=== PATIENT | male | born 1940 | race Caucasian/White ===

== ENCOUNTER 2024-05-18 22:56 | Emergency (ER) | payer MEDICARE, SELFPAY ==
[2024-05-18 22:56] VITALS: BP 153/76; PULSE 66; RESP 20; TEMP 36.6; O2SAT 97; BMI 22.8
[2024-05-18 23:00] VITALS: BP 183/74; PULSE 58; RESP 16; O2SAT 98
[2024-05-18 23:01] VITALS: BP 165/95; PULSE 56; O2SAT 98
--- NOTE | 2024-05-18 23:09 | XR_ITS ---
PROCEDURE INFORMATION: Exam: XR Right Hip Exam date and time: 05/19/2024 12:02 AM Age: 84 years old Clinical indication: Injury or trauma; Fall; Other: Pain; Additional info: Fall, R hip pain TECHNIQUE: Imaging protocol: Radiologic exam of the right hip. Views: 2 or 3 views hip with pelvis when performed. COMPARISON: No relevant prior studies available. FINDINGS: Bones/joints: Mid right femoral neck fracture is superiorly displaced by 6 mm. Osseous demineralization is evident. Soft tissues: Unremarkable. IMPRESSION: Mid right femoral neck fracture is superiorly displaced by 6 mm.
--- NOTE | 2024-05-18 23:09 | CT_ITS ---
PROCEDURE INFORMATION: Exam: CT Cervical Spine Without Contrast Exam date and time: 05/19/2024 12:01 AM Age: 84 years old Clinical indication: Injury or trauma; Fall; Other: Pain; Additional info: Fall on eliquis TECHNIQUE: Imaging protocol: Computed tomography of the cervical spine without contrast. Radiation optimization: All CT scans at this facility use at least one of these dose optimization techniques: automated exposure control; mA and/or kV adjustment per patient size (includes targeted exams where dose is matched to clinical indication); or iterative reconstruction. COMPARISON: CT HEAD/BRAIN WO CON 05/18/2024 11:59 PM FINDINGS: Bones: No acute fracture. Normal alignment. Multilevel degenerative changes with multilevel disc osteophyte complexes resulting in varying degrees of neuroforaminal and central canal narrowing Lungs: Lung apices are normal. Soft tissues: Unremarkable. IMPRESSION: No acute findings.
--- NOTE | 2024-05-18 23:09 | XR_ITS ---
PROCEDURE INFORMATION: Exam: XR Left Hip Exam date and time: 05/19/2024 12:02 AM Age: 84 years old Clinical indication: Injury or trauma; Fall; Other: Pain; Additional info: Fall, HX L hip FX w/ orif TECHNIQUE: Imaging protocol: Radiologic exam of the left hip. Views: 2 or 3 views hip with pelvis when performed. COMPARISON: No relevant prior studies available. FINDINGS: Bones/joints: Mid right femoral neck fracture is superiorly displaced by 6 mm. Bipolar left hip arthroplasty. Osseous demineralization is evident. Moderate spinal degenerative changes. Soft tissues: Unremarkable. Vasculature: Atherosclerosis is evident. Incidental pelvic phlebolith formation. IMPRESSION: Mid right femoral neck fracture is superiorly displaced by 6 mm. Unremarkable left femoral arthroplasty.
--- NOTE | 2024-05-18 23:09 | CT_ITS ---
PROCEDURE INFORMATION: Exam: CT Head Without Contrast Exam date and time: 05/18/2024 11:59 PM Age: 84 years old Clinical indication: Injury or trauma; Fall; Other: Pain; Additional info: Fall on eliquis TECHNIQUE: Imaging protocol: Computed tomography of the head without contrast. Radiation optimization: All CT scans at this facility use at least one of these dose optimization techniques: automated exposure control; mA and/or kV adjustment per patient size (includes targeted exams where dose is matched to clinical indication); or iterative reconstruction. COMPARISON: CT HEAD/BRAIN WO CON 05/18/2024 11:59 PM FINDINGS: Brain: Atrophy and chronic small vessel ischemic changes. No hemorrhage. No mass effect or midline shift. 8.3 mm area of hypodensity in the left adam which could be due to remote ischemia. Cerebral ventricles: No ventriculomegaly. Paranasal sinuses: Opacification of the left maxillary sinus. Mastoid air cells: Visualized mastoid air cells are well aerated. Bones: Unremarkable. No acute fracture. Soft tissues: Unremarkable. IMPRESSION: Chronic changes in the brain but no acute intracranial abnormality.
--- NOTE | 2024-05-18 23:12 | ED_ITS ---
Discharge Plan Disposition Patient Disposition: Xfer Short-Term Hosp Condition: Fair Chief Complaint: PAIN Prescriptions Prescriptions: No Action methylprednisolone 4 MG tablet 4 mg PO DIRECTED Qty: 21 0RF Rx Instructions: Take as directed on package instructions fluticasone propionate 120 SPR/BOT bottle 2 spr NS DAILY Qty: 1 0RF Rx Instructions: each nostril daily amoxicillin-pot clavulanate 1 EACH tablet 1 tab PO Q12H 7 Days Qty: 14 0RF Referrals Follow up/Referrals: Provider,Referral, [Primary Care Provider] - See instructions Clinical Impressions Clinical Impression: Closed fracture of neck of right femur, Fall Stand Alone Forms Stand Alone Forms: Transfer Record - ED Print Language Print Language: Japanese Discharge ED Provider: Bettie Torres General Adult HPI General Chief complaint: PAIN Stated complaint: fall Time Seen by Provider: 05/18/24 23:02 Mode of Arrival: EMS Source of Information: Patient Limitations: No Limitations Description of Symptoms (Recalled from ER Triage Doc. by RN): Pt tripped and fell onto his buttocks on the concrete driveway. Right leg slightly rotated Pain in right hip Pedal pulses strong and equal History of Present Illness HPI narrative: 84-year-old male with history of previous IN on Eliquis as well as recent left hip fracture with ORIF at the beginning of January presents to the ER for concerns of fall. Patient and friend at bedside provide history reporting that patient got out of the car at [employer] and was waiting for the lights on the vehicle to go off when he lost his balance and fell landing primarily on his right side. He denies hitting his head or losing consciousness. Patient is complaining of right hip pain. He also states his left hip hurts slightly more than normal but states it has been aching with the recent weather changes. Patient was able to get himself up onto his hands and knees independently but did not ambulate on scene. He reports his pain is a 4 out of 10 in the right hip without radiation, no numbness, tingling, or weakness, he denies any other injuries or concerns at this time. When offered pain medications, he declined to them. ROS otherwise negative. Related Data Previous Rx's ?Medication ?Instructions ?Recorded amoxicillin 875 mg-potassium 1 tab PO Q12H 7 days #14 tabs 05/18/19 clavulanate 125 mg tablet fluticasone propionate 50 2 spr NS DAILY ##1 12/24/19 mcg/actuation nasal spray,suspension methylprednisolone 4 mg tablet 4 mg PO DIRECTED #21 tabs 05/18/19 Allergies Allergy/AdvReac Type Severity Reaction Status Date / Time No Known Allergies Allergy Verified 05/18/19 13:15 [facility] Disclaimer: The information contained in this section may have been updated after the patient was seen, as this information can be updated by other users. Social History Smoking Status: Never smoker alcohol intake: never current occupational status: other Travel in the last 8 weeks: None Have you lived/traveled outside [place] in past 30 days?: No Contact w/someone who lives/traveled outside US past 30 days?: No Exposure to someone with infectious disease in past 14 days?: No Do you have a fever (greater than 100.4 F or 38 C)?: No Have you tested positive for COVID-19: No Exposed to someone with COVID-19 in past 14 days?: No Do you have a sore throat?: No Do you have a cough?: No Do you have any weakness?: No Do you have any diarrhea?: No Are you experiencing any unusual bleeding?: No Do you have any muscle aches/pain?: No Do you have any abdominal pain?: No Are you experiencing loss of taste or smell?: No ROS Obtained: Yes Systems reviewed as appropriate & no additional complaints except as documented Per HPI Physical Exam General General appearance: alert and in no apparent distress Head Head exam: atraumatic and normocephalic Eye Eye exam: Present PERRL and EOMI ENT ENT exam: Present mucous membranes moist Neck Neck exam: Present normal inspection and full ROM; Absent tenderness or lymphadenopathy Chest Chest inspection: Present symmetric chest wall rise; Absent tenderness Respiratory Respiratory exam: Present normal lung sounds bilaterally; Absent respiratory distress, wheezes or stridor Cardiovascular Cardiovascular exam: Present regular rate and normal rhythm Abdominal Exam Abdominal exam: Present soft; Absent distention, tenderness, guarding or rebound Extremities Exam Extremities exam: Present full ROM (Range of motion intact with passive movements in the right hip, however they are painful especially with flexion. Patient has slight worsening of pain with internal rotation of the right hip, ROM in other extremities full), tenderness (Slight tenderness to palpation over the right greater trochanter of the hip), normal capillary refill and edema (Trace +1 pitting edema bilateral lower extremities); Absent joint swelling or calf tenderness Back Exam Back exam: Absent tenderness Neurological Exam Neurological exam: Present alert and oriented X3; Absent motor sensory deficit Psychiatric Psychiatric exam: Present normal affect and normal mood Skin Skin exam: Present warm and dry Medical Decision Making Medical Records Screening: Per USPSTF and CDC recommendations, given the prevalence of disease in our region, it is our hospital?s policy to screen for HIV and viral Hepatitis for all patients aged 18 and over and those with ongoing risk factors. [place] Inquiry Pt receiving controlled substance: No Vital Signs: 05/18/24 22:56 05/18/24 23:00 05/18/24 23:01 Temperature 98 F Temperature Source Oral Pulse Rate 58 L 56 L Pulse Rate [Right Brachial] 66 Respiratory Rate 20 16 Blood Pressure 183/74 H 165/95 H Blood Pressure [Right Arm] 153/76 H Blood Pressure Mean [Right Arm] 101 Blood Pressure Source [Right Arm] Automatic Cuff Blood Pressure Position [Right Arm] Supine 02 Sat by Pulse Oximetry 97 98 98 Oxygen Delivery Method Room Air Room Air 05/18/24 23:31 05/19/24 00:31 05/19/24 01:00 Temperature Temperature Source Pulse Rate 54 L 67 59 L Pulse Rate [Right Brachial] Respiratory Rate Blood Pressure 154/65 H 183/74 H 168/75 H Blood Pressure [Right Arm] Blood Pressure Mean [Right Arm] Blood Pressure Source [Right Arm] Blood Pressure Position [Right Arm] 02 Sat by Pulse Oximetry 98 97 98 Oxygen Delivery Method 05/19/24 01:30 05/19/24 02:00 05/19/24 02:30 Temperature Temperature Source Pulse Rate 62 63 65 Pulse Rate [Right Brachial] Respiratory Rate Blood Pressure 168/65 H 161/66 H 170/71 H Blood Pressure [Right Arm] Blood Pressure Mean [Right Arm] Blood Pressure Source [Right Arm] Blood Pressure Position [Right Arm] 02 Sat by Pulse Oximetry 97 97 96 Oxygen Delivery Method 05/19/24 03:00 05/19/24 03:30 Temperature Temperature Source Pulse Rate 62 63 Pulse Rate [Right Brachial] Respiratory Rate Blood Pressure 158/71 H 161/69 H Blood Pressure [Right Arm] Blood Pressure Mean [Right Arm] Blood Pressure Source [Right Arm] Blood Pressure Position [Right Arm] 02 Sat by Pulse Oximetry 96 96 Oxygen Delivery Method Orders (Tests/Meds): ORDERS Category Date Time Status CT cervical spine wo con Stat Cat Scan 05/18/24 23:[address] head/brain wo con Stat Cat Scan 05/18/24 23:09 Completed Hip XR left minimum 2 views [XR hip LT 2-3V w/pelvis] Exams 05/18/24 23:09 Completed Stat XR hip RT 2-3V w/pelvis Stat Exams 05/18/24 23:09 Completed HIV (1&2) Antibody Rapid Stat Lab 05/18/24 23:00 Ordered Hep C Ab with Reflex to RNA Stat Lab 05/18/24 23:00 Ordered Medical Decision Narrative: In summary, this 84-year-old male with comorbidities described in the HPI presents to the emergency department today with concerns of right hip pain after ground-level fall. On initial evaluation patient is hemodynamically stable, afebrile, most notable finding on exam is pain with manipulation of the right hip and tenderness over the right greater trochanter, neurovascularly intact distally, remainder of exam reassuring. Differential diagnosis includes but is not limited to fracture, dislocation, with patient stating the left hip is also slightly more painful, I also considered hardware malfunction. Since patient is on blood thinners, higher suspicion for intracranial bleed, with his age also have suspicion for potential cervical spine injury despite the low energy mechanism of injury. Based on these concerns, I ordered CT head and C-spine as well as x-ray imaging of the bilateral hips and pelvis. Patient refused pain medication for treatment. CT head personally interpreted does not demonstrate acute intracranial abnormality such as bleed or midline shift, see radiology read for final interpretation. CT cervical spine does not demonstrate acute traumatic injury. X-rays personally interpreted demonstrate right femoral neck fracture on my personal interpretation, see radiology read for final interpretation. Patient remains neurovascularly intact and pain is well-controlled. Unfortunately orthopedic services are not available at this institution this week. Therefore patient requires transfer for continued management. Initially [facility] was called for transfer, however then additional family presented to bedside and reported patient has previously received care at [facility] and requested transfer there since that is where he had his left hip repaired. I reached out to this institution and after discussing the case with Dr. Dinh with orthopedics as well as KUSH Prince with the hospitalist service, patient was graciously excepted for admission. Patient's accepting physician is Dr. Frankel. Patient is appropriate for BLS transfer. He was transferred in stable condition. Critical Care Critical Care Time Critical Care Time: No
[2024-05-18 23:31] VITALS: BP 154/65; PULSE 54; O2SAT 98
[2024-05-19] VITALS (9 sets, daily range): BP systolic 158–183; BP diastolic 65–78; PULSE 59–67; RESP 17; TEMP 36.7; O2SAT 95–98
--- NOTE | 2024-05-19 01:16 | PC.NURSE ---
called [facility] in regard for a transfer @ 01:14
--- NOTE | 2024-05-19 01:45 | PC.NURSE ---
Called [facility] transfer center at 01:45 in regard to pt transfer to [facility]
--- NOTE | 2024-05-19 02:04 | PC.NURSE ---
Dr. Torres at bedside
--- NOTE | 2024-05-19 04:02 | PC.NURSE ---
Report called to Kira MCGUIRE at [facility]
--- NOTE | 2024-05-19 04:26 | PC.NURSE ---
Pt aware of plans for transfer and admission Awaiting transport
== END 2024-05-19 05:00 | disposition short-term general hospital (02) ==
PROVIDERS: Emergency Provider Emergency Medicine
DX: S72.001A Fracture of unspecified part of neck of right femur, initial encounter for closed fracture (principal); M25.551 Pain in right hip; M25.552 Pain in left hip; R60.0 Localized edema; W01.0XXA Fall on same level from slipping, tripping and stumbling without subsequent striking against object, initial encounter; Y93.89 Activity, other specified; Y92.22 Religious institution as the place of occurrence of the external cause
CPT/HCPCS: 70450; 72125; 73502; 99284

== ENCOUNTER 2025-03-10 17:19 | Outpatient (CLI) | payer MEDICARE, SELFPAY ==
--- OUTSIDE RECORDS SUMMARY | 2025-01-11 14:02 | XMS_ITS | Encounter Summary ---
Author Organization [place] [address] Care Team Providers Care Postie Name Role Phone Gloria Whitmore MD Primary Care Provider [phone] Hui Slater MD Unavailable [phone] Encounter Details Date Type Department Care Team (Latest Contact Info) Description 01/11/2025 2:02 PM EDT Hospital Encounter [facility] [address] [place] [address] Iron deficiency anemia due to chronic blood loss; Iron malabsorption; Anticoagulated Discharge Disposition: Home or Self Care Social History Tobacco Use Types Packs/Day Years Used Date Smoking Tobacco: Former Cigarettes Q uit: 06/22/1976 Passive Smoke Exposure: Past Smokeless Tobacco: Never Alcohol Use Standard Drinks/Week Comments No 0 (1 standard drink = 0.6 oz pur e alcohol) [facility] Utilities Answer Date Recorded In the past 12 months has [employer] electric, gas, oil, or water company threatened to shut off services in your home? No 05/20/2024 Overall Financial Resource Strain (CARDIA) Answe r Date Recorded How hard is it for you to pa y for the very basics like food, housing, medical care, and heating? Not very hard 05/20/2024 PHQ-2 Answer Date Recorded PHQ-2 Total Score 0 06/30/2024 [facility] [place] [facility] Occupat ional [facility] - Occupational Stress Questionnaire Answer Date Recorded Do you feel stress - tense, restless, nervous, or anxious, or unable to sleep at night because your mind is troubled all the time - these days? Not at all 05/20/2024 Exercise Vital Sign Answer Date Recorde d On average, how many days pe r week do you engage in moderate to strenuous exercise (like a brisk walk)? 4 days 05/20/2024 On average, how many minutes do you engage in exercise at this level? 40 min 05/20/2024 Hunger Vital Sign Answer Date Recorded Within the past 12 months, y ou worried that your food would run out before you got the money to buy more. Never true 05/20/20 24 Within the past 12 months, t he food you bought just didn't last and you didn't have money to get more. Never true 05/20/2024 [facility] IP Transportation Answer D ate Recorded In the past 12 months, has l ack of reliable transportation kept you from medical appointments, meetings, work or from getting things needed for daily living? No 05/20/2024 Sexually Active Control Partners Comments Not Currently Female Sex and Gender Information Value Date Recorded Sex Assigned at Not on file Legal Sex Male 11:38 PM EDT Gender Identity Not on file Sexual Orientation Not on file documented as of this encounter Functional Status * Is the person deaf or does he/she have serious difficulty hearing? Answer Date of Assessment Author No 06/30/2024 1:22 PM Ebony Holt RMA * Is the person blind or does he/she have serious difficulty seeing even when wearing glasses? Answer Date of Assessment Author No 06/30/2024 1:22 PM Ebony Holt RMA * Does this person have serious difficulty walking or climbing stairs? Answer Date of Assessment Author No 06/30/2024 1:22 PM Ebony Holt RMA * Does this person have difficulty dressing or bathing? Answer Date of Assessment Author No 06/30/2024 1:22 PM Ebony Holt RMA * Because of a physical, mental or emotional condition, does this person have difficulty doing errands alone such as visiting a doctor's office or shopping? Answer Date of Assessment Author No 06/30/2024 1:22 PM Ebony Holt RMA documented as of this encounter Mental Status * Because of a physical, mental or emotional condition, does this person have serious difficulty concentrating, remembering or making decisions? Answer Entry Date Author No 06/30/2024 1:22 PM Ebony Holt RMA documented in this encounter Medications at Time of Discharge apixaban (ELIQUIS) 5 mg Oral TabletIndications :Old myocardial infarction Take 1 Tablet by mouth 2 times daily. 28 Tablet 08/17/2024 Cholecalciferol, Vitamin D3, 25 mcg (1,000 unit) Oral Capsule Take by mouth daily. ELIQUIS 2.5 mg Oral Tablet 12/28/2024 ezetimibe (ZETIA) 10 mg Oral Tablet Take 1 Tablet by mouth daily. 90 Tablet 1 12/24/2021 multivitamin capsule Take 1 Cap by mouth daily. rosuvastatin (CRESTOR) 20 mg Oral TabletIndications :Coronary artery disease involving [place] coronary artery of [place] heart without angina pectoris Take 1 Tablet by mouth nightly. 90 Tablet 3 06/30/2024 verapamiL (CALAN-SR) 120 mg Oral Tablet Sustained ReleaseIndication s:Tachycardia Take 1 Tablet by mouth 2 times daily. 180 Tablet 1 12/24/2021 cyanocobalamin, vitamin B-12, (VITAMIN B-12 ORAL) Take 1 Tab by mouth daily. 01/13/2025 documented as of this encounter Discharge Disposition Disposition Code Departure Means Destination Home or Self Care documented in this encounter Plan of Treatment Upcoming Encounters Date Type Department Care Team (Late st Contact Info) Description 03/23/2025 1:00 PM EDT Appointment [facility] [place] [address] [place] [address] 03/23/2025 1:30 PM EDT Appointment [place] [address] [place] [address] Sherrill Stroud, MATTHEW [address] [facility] [place] [id number] documented as of this encounter Goals Goal Patient Goal Type Associated Problems Recent Progress Patient-Stated? 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 Anticoagulated IRON+TIBC [place] 01/11/2025 2:12 PM EDT 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 Anticoagulated VITAMIN B12/ FOLIC ACID [place] 01/11/2025 2:12 PM EDT 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 Anticoagulated CBC WITH DIFF [place] 01/11/2025 2:12 PM EDT 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 Anticoagulated FERRITIN [place] 01/11/2025 2:12 PM EDT 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 Anticoagulated COMPREHENSIVE METABOLIC PANEL [place] 01/11/2025 2:12 PM EDT 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 Anticoagulated documented in this encounter Results * VITAMIN B12/ FOLIC ACID (01/11/2025 2:12 PM EDT) Vitamin B12 528 232 - 1,245 pg/mL 01/11/2025 9:53 PM EDT [facility] [employer] Folate >16.00 >=4.50 ng/mL 01/11/2025 9:53 PM EDT [facility] Blood VENOUS BLOOD / Unknown Venipuncture / Unknown 01/11/2025 2:12 PM EDT 01/11/2025 2:14 PM EDT Narrative [facility] - 01/11/2025 9:53 PM EDT Ingestion of mine doses of biotin (>5 mg/day) taken within 8 hours of drawing blood sample can interfere with this immunoassay test. us Sherrill Stroud PIANO INSTRUCTOR CHEMISTRY ORDERABLES Fin al Result [facility], [facility] [address] [facility] , [place] [address] * RETICULOCYTE PANEL DIAGNOSTIC (01/11/2025 2:12 PM EDT) Retic Cnt Auto 1.6 0.9 - 2.5 % 01/11/2025 6:55 PM EDT [facility], [facility] Retic # 70.9 40.0 - 110.0 x10(3)/mcL 01/11/2025 6:55 PM EDT [facility], [facility] Imm. Retic Fraction % 9.0 3.1 - 17.6 % 01/11/2025 6:55 PM EDT [facility], [facility] Retic Hgb 33.5 28.0 - 38.0 pg 01/11/2025 6:55 PM EDT [facility] Blood VENOUS BLOOD / Unknown Venipuncture / Unknown 01/11/2025 2:12 PM EDT 01/11/2025 2:14 PM EDT [facility] 01/11/2025 6:55 PM EDT Reticulocyte hemoglobin content (RET-He), a direct measurement of hemoglobinization of the developing reticulocyte, should be interpreted in conjunction with other indices. In various adult studies, values lower than 27-28pg (1,2) have demonstrated specificities for iron deficiency exceeding 90%. In a study of cancer patients, values exceeding 32pg (3) ruled out iron deficiency with a negative predictive value of 98.5%. RET-He has also demonstrated utility for monitoring response to iron replacement therapy (4). The immature reticulocyte fraction (IRF) assesses reticulocyte maturation by measuring the intensity of mRNA staining with the youngest reticulocytes having the highest content. (1)Rosendo Y., et al. 2017. Int J Hematol 106:116-125. (2)Rd J., et al. 2017. Nutrients 9:450. (3)Adrianna Schwab, et al. 2014. Am J Clin Pathol 142:506-512. (4)Camila Lerner., et al. 2010. Blood 116:2429-6251. Sherrill Stroud APRN HEMATOLOGY ORDERABLES Fi nal Result Performing Organization Address [facility] Co de Phone Number [facility], [facility] [address] [facility] , [place] [address] * (ABNORMAL) IRON+TIBC (01/11/2025 2:12 PM EDT) Iron 58 50 - 170 mcg/dL 01/11/2025 8:07 PM EDT [facility] Transferrin 237 200 - 360 mg/dL 01/11/2025 8:07 PM EDT [facility] Transferrin Saturation 17(L) 20 - 50 % 01/11/2025 8:07 PM EDT [facility] TIBC 332 250 - 400 mcg/dL 01/11/2025 8:07 PM EDT [facility] Blood VENOUS BLOOD / Unknown Venipuncture / Unknown 01/11/2025 2:12 PM EDT 01/11/2025 2:14 PM EDT Sherrill Stroud APRN CHEMISTRY ORDERABLES Fin al Result Performing Organization Address [facility] Co de Phone Number [facility], [employer] [address] [facility] , [place] [address] * FERRITIN (01/11/2025 2:12 PM EDT) Ferritin 96 30 - 400 ng/mL 01/11/2025 8:07 PM EDT [facility] Blood VENOUS BLOOD / Unknown Venipuncture / Unknown 01/11/2025 2:12 PM EDT 01/11/2025 2:14 PM EDT Narrative [facility] [employer] - 01/11/2025 8:07 PM EDT Ingestion of mine doses of biotin (>5 mg/day) taken within 8 hours of drawing blood sample can interfere with this immunoassay test. us Sherrill Stroud PIANO INSTRUCTOR CHEMISTRY ORDERABLES Fin al Result [employer] [address] [facility] , [place] [address] * (ABNORMAL) COMPREHENSIVE METABOLIC PANEL (01/11/2025 2:12 PM EDT) Sodium 138 136 - 145 mmol/L 01/11/2025 2:34 PM EDT [facility] Potassium 4.3 3.5 - 5.0 mmol/L 01/11/2025 2:34 PM EDT [facility] Chloride 103 98 - 107 mmol/L 01/11/2025 2:34 PM EDT [facility] Total CO2 24 22 - 29 mmol/L 01/11/2025 2:34 PM EDT [facility] Anion Gap 11 7 - 16 mmol/L 01/11/2025 2:34 PM EDT [facility] Calcium 9.9 8.8 - 10.4 mg/dL 01/11/2025 2:34 PM EDT [facility] Glucose Lvl 100(H) 70 - 99 mg/dL 01/11/2025 2:34 PM EDT [facility] BUN 21 8 - 23 mg/dL 01/11/2025 2:34 PM EDT [facility] Creatinine 0.96 0.67 - 1.30 mg/dL 01/11/2025 2:34 PM T [facility] Albumin 4.2 3.2 - 4.6 gm/dL 01/11/2025 2:34 PM EDT [facility] Total Protein 7.7 6.4 - 8.3 gm/dL 01/11/2025 2:34 PM T [facility] Bili Total 0.6 0.2 - 1.4 mg/dL 01/11/2025 2:34 PM T [facility] ALT 20 <=41 U/L 01/11/2025 2:34 PM EDT [facility] AST 26 <=40 U/L 01/11/2025 2:34 PM EDT [facility] Alk Phos 106 40 - 129 U/L 01/11/2025 2:34 PM EDT [facility] eGFR (CKD-EPIcr 2020) 77 >=60 mL/min/1.7 3 m2 01/11/2025 2:34 PM EDT [facility] Comment:Estimated GFR was ca lculated using the CKD-EPIcr (2020) equation refit without race. The equation is recommended by the National Kidney Foundation - [place] [employer] of Nephrology Task Force. Blood VENOUS BLOOD / Unknown Venipuncture / Unknown 01/11/2025 2:12 PM EDT 01/11/2025 2:14 PM EDT us Sherrill Stroud PIANO INSTRUCTOR CHEMISTRY ORDERABLES Fin al Result [facility] [address] [place] [address] * (ABNORMAL) CBC WITH DIFF (01/11/2025 2:12 PM EDT) WBC 5.6 3.7 - 10.3 x10(3)/mc L 01/11/2025 2:18 PM EDT [facility] RBC 4.46(L) 4.60 - 6.10 x10(6)/mc L 01/11/2025 2:18 PM EDT [facility] Hgb 13.6(L) 13.7 - 17.5 g/dL 01/11/2025 2:18 PM EDT [facility] Hct 42.0 40.0 - 51.0 % 01/11/2025 2:18 PM EDT [facility] MCV 94.2 80.0 - 100.0 fL 01/11/2025 2:18 PM EDT [facility] MCH 30.5 26.0 - 34.0 pg 01/11/2025 2:18 PM EDT [facility] MCHC 32.4 30.7 - 35.5 g/dL 01/11/2025 2:18 PM EDT [facility] RDW 12.9 <=14.9 % 01/11/2025 2:18 PM [facility] Platelet 149(L) 155 - 369 x10(3)/mc L 01/11/2025 2:18 PM [facility] MPV 10.1 8.8 - 12.5 fL 01/11/2025 2:18 PM [facility] Neut # Prelim 3.2 1.6 - 6.1 x10(3)/mc L 01/11/2025 2:18 PM [facility] Comment:Preliminary automate d absolute neutrophil count. Value may change if manual differential is indicated. Neut Percent 56.4 % 01/11/2025 2:18 PM [facility] Comment:Neutrophils equals s egs plus bands Imm Gran% 0.2 % 01/11/2025 2:18 PM [facility] Comment:Automated count of m etamyelocytes, myelocytes and promyelocytes. Lymph Percent 27.5 % 01/11/2025 2:18 PM [facility] [place] Percent 8.6 % 01/11/2025 2:18 PM [facility] Eos Percent 6.8 % 01/11/2025 2:18 PM [facility] Baso Percent 0.5 % 01/11/2025 2:18 PM [facility] Neut # 3.2 1.6 - 6.1 x10(3)/mc L 01/11/2025 2:18 PM [facility] Comment:Neutrophils equals s egs plus bands IMMGRAN# 0.0 0.0 - 0.1 x10(3)/mc L 01/11/2025 2:18 PM [facility] Comment:Automated count of m etamyelocytes, myelocytes and promyelocytes. An absolute IG <0.1 is reported as 0.0. Lymph # 1.5 1.2 - 3.9 x10(3)/mc L 01/11/2025 2:18 PM [facility] [place] # 0.5 0.3 - 0.9 x10(3)/mc L 01/11/2025 2:18 PM [facility] Eos# 0.4 0.0 - 0.5 x10(3)/mc L 01/11/2025 2:18 PM EDT [facility] Baso # 0.0 0.0 - 0.1 x10(3)/mc L 01/11/2025 2:18 PM EDT [facility] Blood VENOUS BLOOD / Unknown Venipuncture / Unknown 01/11/2025 2:12 PM EDT 01/11/2025 2:14 PM EDT us Sherrill Stroud PIANO INSTRUCTOR HEMATOLOGY ORDERABLES Fi nal Result [facility] [address] [place] [address] documented in this encounter Visit Diagnoses Diagnosis Iron deficiency anemia due to chronic blood loss Iron deficiency anemia secondary to blood loss (chronic) Iron malabsorption Other specified intestinal malabsorption Anticoagulated Encounter for long-term (current) use of anticoagulants documented in this encounter Additional Health Concerns Assessment Noted Time A fall risk assessment has been complete d for the patient 01/22/2024 4:21 PM EDT documented as of this encounter Care Teams Postie Relationship Specialty Start Date End Date Gloria Whitmore MD [address] [place], [place] [id number] PCP - General Family Medicine 08/07/17 Hui Slater MD [address] [facility] [place] [address] Medical Oncologist Internal Medicine-Hematology and Oncology 11/10/24 documented as of this encounter
--- OUTSIDE RECORDS SUMMARY | 2025-01-11 14:03 | XMS_ITS | Encounter Summary ---
Author Organization [place] [address] Care Team Providers Care Orthopaedic Surgeon Name Role Phone Gloria Whitmore MD Primary Care Provider [phone] Hui Slater MD Unavailable [phone] Reason for Visit * Reason Comments Follow-up Iron deficiency anem ia due to chronic blood loss Encounter Details Date Type Department Care Team (Latest Contact Info) Description 01/11/2025 2:03 PM EDT - 01/11/2025 11:59 PM EDT Hospital Encounter [facility] [address] [place] [address] Sherrill Stroud, MATTHEW [address] [place], [place] [id number] Iron deficiency anemia due to chronic blood loss (Primary Dx); Iron malabsorption; Anticoagulated; History of ischemic colitis; Anemia, chronic disease; Paroxysmal atrial fibrillation (HCC); History of prostate cancer Discharge Disposition: Home or Self Care Social History Tobacco Use Types Packs/Day Years Used Date Smoking Tobacco: Former Cigarettes Q uit: 06/22/1976 Passive Smoke Exposure: Past Smokeless Tobacco: Never Alcohol Use Standard Drinks/Week Comments No 0 (1 standard drink = 0.6 oz pur e alcohol) [facility] Utilities Answer Date Recorded In the past 12 months has [employer] gas, oil, or water company threatened to shut off services in your home? No 05/20/2024 Overall Financial Resource Strain (CARDIA) Answe r Date Recorded How hard is it for you to pa y for the very basics like food, housing, medical care, and heating? Not very hard 05/20/2024 PHQ-2 Answer Date Recorded PHQ-2 Total Score 0 06/30/2024 [facility] - Occupational Stress Questionnaire Answer Date Recorded [...] money to get more. Never true 05/20/2024 [facility] IP Transportation Answer D ate Recorded In [...] on file documented as of this encounter Last Filed Vital Signs Vital Sign Reading Time Taken Comments Blood Pressure 139/74 01/11/2025 2:11 PM EDT Pulse 54 01/11/2025 2:11 PM EDT Temperature 36.4 C (97.5 F) 01/11/2025 2:11 PM EDT Respiratory Rate 16 01/11/2025 2:11 PM EDT Oxygen Saturation 97% 01/11/2025 2:11 PM EDT Inhaled Oxygen Concentration - - Weight 78.9 kg (173 lb 14.4 oz) 01/11/2025 2:11 PM EDT Height 175.3 cm (5' 9 ) 01/11/2025 2:11 PM EDT Body Mass Index 25.68 01/11/2025 2:11 PM EDT documented in this encounter Functional Status * Is the [...] mg Oral TabletIndications :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 Patient: Radhames Monroy CSN: [id number] Date of : 1940 Age: 85 y.o. Date of Service: 01/11/2025 HEMATOLOGY/ONCOLOGY FOLLOW UP VISIT Primary Tassel Making Machine Operator & Oncologist: Hui Slater MD DIAGNOSIS & TREATMENT HISTORY: Oncology History Overview Note Anemia Chronic, persistent anemia dating to at least July 2021 with a progressive decline in hemoglobin values from 13.6 to 10.7 on January 22, 2024 in which he presented to the ER following a syncopal episode with x-ray imaging that revealed a left hip fracture. Underwent a left hemiarthroplasty on 01/23/24 with further decline in hemoglobin post-operatively to 6 resulting in packed red blood cell transfusion with improvement in hemoglobin by day of discharge to 8.9 Represented on 05/19/24 with right hip fracture resulting right hemiarthroplasty on 05/20/24 with hemoglobin on the day of discharge of 8.6 Received a single dose of IV iron (ferric gluconate) on 05/21/24 Continues on oral iron replacement No history exists. Cancer Staging No matching staging information was found for the patient. CURRENT TREATMENT: Venofer (1,000 mg) completed on 08/30/24 INTERVAL HISTORY: Radhames Monroy returns for ongoing evaluation of iron deficiency anemia requiring intermittent IV iron replacement Chief Complaint Patient presents with Follow-up Iron deficiency anemia due to chronic blood loss Feeling well today Energy level fluctuates, weakness improved from prior evaluations No reports of bleeding including hemoptysis, melena, hematochezia, hematuria or epistaxis. No recent falls No hospitalizations or emergency room encounters since his last evaluation No new or worsening musculoskeletal pain MEDICATIONS: Medications and allergies reviewed PHYSICAL EXAM: Vitals: 01/11/25 1411 BP: 139/74 Pulse: 54 Resp: 16 Temp: 97.5 ??F (36.4 ??C) SpO2: 97% ECO Pertinent information Physical Exam Vitals reviewed. Constitutional: General: He is not in acute distress. Comments: Chronically ill appearing but clinically improved from prior evaluations Eyes: General: No scleral icterus. Pulmonary: Effort: Pulmonary effort is normal. No respiratory distress. Skin: General: Skin is warm and dry. Coloration: Skin is not pale. Findings: No erythema or rash. Neurological: Mental Status: He is alert and oriented to person, place, and time. Psychiatric: Mood and Affect: Mood normal. MEDICAL DATA REVIEW: Laboratories, Images and Pathology results reviewed 08/04/24 Erythropoietin level 25 From 01/11/25 CBC: WBC normal (5.6, normal differential) with improved anemia (hemoglobin 13.6) with normal red blood cell indices; platelet count mildly reduced (149,000) CMP: Serum creatinine stable; no elevation in AST or ALT with normal total bilirubin and normal alkaline phosphatase (106 <-- 118) with normal total serum protein, albumin and calcium levels Ferritin 96 <-- 242 <-- 29 Iron 58 <-- 78 <-- 22 Transferrin saturation 17% <-- 27% <-- 6% TIBC 332 <-- 294 <-- 381 B12 normal 528 Folate level greater than 16 Reticulocyte panel normal ASSESSMENT & PLAN Radhames was seen today for follow-up. Diagnoses and all orders for this visit: Iron deficiency anemia due to chronic blood loss - CBC WITH DIFF; Future - COMPREHENSIVE METABOLIC PANEL; Future - FERRITIN; Future - IRON+TIBC; Future - VITAMIN B12/ FOLIC ACID; Future Iron malabsorption - CBC WITH DIFF; Future - COMPREHENSIVE METABOLIC PANEL; Future - FERRITIN; Future - IRON+TIBC; Future - VITAMIN B12/ FOLIC ACID; Future Anticoagulated - CBC WITH DIFF; Future - COMPREHENSIVE METABOLIC PANEL; Future - FERRITIN; Future - IRON+TIBC; Future - VITAMIN B12/ FOLIC ACID; Future History of ischemic colitis Anemia, chronic disease Paroxysmal atrial fibrillation (HCC) History of prostate cancer Anemia Multifactorial Likely component of iron deficiency secondary to chronic blood loss in the setting of recent left hip hemiarthroplasty secondary to a fall (December 2023) followed by right hip hemiarthroplasty secondary to a fall (April 2024) with continuation of anticoagulation with Eliquis (5 mg twice daily) aswell as aspirin (162 mg daily). Noted prior colonoscopy from 2010 with pathology consistent with ischemic colitis Likely a component of iron malabsorption as patient currently taking oral iron replacement 3 times daily with continued iron deficiency. Likely a component of anemia of chronic disease/inflammation in the setting of advanced age with recent surgeries as above Screening for monoclonal paraprotein negative from April 2024 No evidence of B12 or folate deficiency -CBC reviewed from today with continued improvement in hemoglobin (13.6) with now normal red blood cell indices -Iron studies reviewed from today; ferritin greater than 50 (but falling) with transferrin saturation of less than 20% and rising TIBC consistent with recurrent iron deficiency -Recommend proceeding with additional IV iron replacement (Venofer 600 mg) with repeat evaluations pending completion -B12 level from today normal (528); ok to continue oral B12 replacement - once per day on Mondays, Wednesdays and Fridays -Consider referral to gastroenterology if worsens Paroxysmal Atrial Fibrillation Managed by [facility] Was taking Eliquis (5 mg BID) as well as Verapamil -Previously discussed with cardiology (secondary to recent falls (December 2023 and April 2024) aswell as age and concurrent iron deficiency anemia, agreed to decrease Eliquis form 5 mg BID to 2.5 mg BID in an effort to reduce bleeding risk History of prostate cancer Status post radical prostatectomy in 2008 -PSA from 2019 less than 0.03 Advance Directives: Advance Directives and Living Will: Not Received Power of Seed Specialist: Not Received ADVANCE DIRECTIVE: Not Received Code Status: Needs Addressed - Prior Hx Available Dispo: Return for Pending iron replacement . Thank you for the opportunity to assist in the care of this patient, please feel free to contact meif I can be of any assistance. Sherrill Stroud APRN Hematology and Medical Oncology [facility] documented in this encounter Plan of Treatment Upcoming Encounters Date Type Department Care Team (Late st Contact Info) Description 03/23/2025 1:00 PM EDT Appointment [address] [place] [id number] 03/23/2025 1:30 PM EDT Appointment [facility] [address] [place] [place] [address] Sherrill Stroud, PARTS LISTER [address] [place], [place] [address] Scheduled Orders Name Type Priority Associated Diagnoses Orde r Schedule CBC WITH DIFF [facility] 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 Anticoagulated Expected: 03/23/2025, Expires: 02/17/2026 COMPREHENSIVE METABOLIC PANEL [facility] 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 Anticoagulated Expected: 03/23/2025, Expires: 02/17/2026 FERRITIN [facility] 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 Anticoagulated Expected: 03/23/2025, Expires: 02/17/2026 IRON+TIBC [facility] 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 Anticoagulated Expected: 03/23/2025, Expires: 02/17/2026 VITAMIN B12/ FOLIC ACID [facility] 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 Anticoagulated Expected: 03/23/2025, Expires: 02/17/2026 documented as of this encounter Goals Goal [...] Askew MD documented as of this encounter Visit Diagnoses Diagnosis Iron deficiency anemia due to chronic blood loss- Primary Iron deficiency anemia secondary to blood loss (chronic) Iron malabsorption Other specified intestinal malabsorption Anticoagulated Encounter for long-term (current) use of anticoagulants History of ischemic colitis Anemia, chronic disease Anemia of other chronic disease Paroxysmal atrial fibrillation (HCC) Atrial fibrillation History of prostate cancer Personal history of malignant neoplasm of prostate documented in this encounter Historical Medications * This list may reflect changes made after this encounter. Medication Sig Dispense Quantity Refills Last Filled Start D ate End Date ELIQUIS 2.5 mg Oral Tablet 12/28/2024 added in this encounter Additional Health Concerns Assessment Noted Time A fall risk assessment has been complete d for the patient 01/22/2024 4:21 PM EDT documented as of this encounter Care Teams Orthopaedic Surgeon Relationship Specialty Start Date End Date Gloria Whitmore MD [address] [place] [address] PCP - General Family Medicine 08/07/17 Hui Slater MD [address] [place] [id number] Medical Oncologist Internal Medicine-Hematology and Oncology 11/10/24 documented as of this encounter
--- OUTSIDE RECORDS SUMMARY | 2025-01-19 14:49 | XMS_ITS | Encounter Summary ---
Author Organization [place] [address] Care Team Providers Care Freezer Operator Name Role Phone Gloria Whitmore MD Primary Care Provider [phone] Hui Slater MD Unavailable [phone] Reason for Visit * Oncology Medication Prior Authorization (Routine) - Closed Specialty Diagnoses / Procedures Referred By Contac t Referred To Contact Diagnoses 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 Procedures [place] IRON SUCROSE INJECTION Sherrill Stroud APRN [address] [place] [address] Phone: tel: fax: Sherrill Stroud APRN [address] [place] [address] Phone: tel: fax: Referral ID Status Reason Start Date Expiration Date Visits Re quested Visits Authorized [id number] Closed 01/20/2025 01/20/2026 1 5 Encounter Details Date Type Department Care Team (Latest Contact Info) Description 01/19/2025 2:49 PM EDT - 01/19/2025 11:59 PM EDT Hospital Encounter [facility] [address] [place] [address] Iron deficiency anemia due to chronic blood loss (Primary Dx); Iron malabsorption Discharge Disposition: Home or Self Care Social History Tobacco Use Types Packs/Day Years Used Date Smoking Tobacco: Former Cigarettes Q uit: 06/22/1976 Passive Smoke Exposure: Past Smokeless Tobacco: Never Alcohol Use Standard Drinks/Week Comments No 0 (1 standard drink = 0.6 oz pur e alcohol) [facility] Utilities Answer Date Recorded In the past 12 months has th e electric, gas, oil, or water company threatened to shut off services in your home? No 05/20/2024 Overall Financial Resource Strain (CARDIA) Answe r Date Recorded How hard is it for you to pa y for the very basics like food, housing, medical care, and heating? Not very hard 05/20/2024 PHQ-2 Answer Date Recorded PHQ-2 Total Score 0 06/30/2024 [facility] - Occupational Stress [...] money to get more. Never true 05/20/2024 [facility] IP Transportation Answer D ate Recorded [...] Sign Reading Time Taken Comments Blood Pressure 145/54 01/19/2025 3:46 PM EDT Pulse 57 01/19/2025 3:46 PM EDT Temperature 36.3 C (97.3 F) 01/19/2025 3:46 PM EDT Respiratory Rate 18 01/19/2025 3:46 PM EDT Oxygen Saturation 98% 01/19/2025 3:46 PM EDT Inhaled Oxygen Concentration - - Weight 80 kg (176 lb 4.8 oz) 01/19/2025 3:03 PM EDT Height - - Body Mass Index 26.03 01/11/2025 2:11 PM EDT documented in this [...] unit) Oral Capsule Take by mouth daily. cyanocobalamin 1,000 mcg Oral TabletIndications :B12 deficiency Take 1 Tablet by mouth three times a week. 36 Tablet 1 01/14/2025 ELIQUIS 2.5 mg Oral Tablet 12/28/2024 ezetimibe (ZETIA) 10 mg Oral Tablet Take 1 Tablet by mouth daily. 90 Tablet 1 12/24/2021 multivitamin capsule Take 1 Cap by mouth daily. rosuvastatin (CRESTOR) 20 mg Oral TabletIndications :Coronary artery disease involving [place] coronary artery of [place] heart without angina pectoris Take 1 Tablet by mouth nightly. 90 Tablet 3 06/30/2024 verapamiL (CALAN-SR) 120 mg Oral Tablet Sustained ReleaseIndication s:Tachycardia Take 1 Tablet by mouth 2 times daily. 180 Tablet 1 12/24/2021 documented as of this encounter Discharge Disposition Disposition Code Departure Means Destination Home or Self Care documented in this encounter Miscellaneous Notes * Patient Instructions - Lucila Asher RN - 01/19/2025 3:00 PM EDT [facility] Discharge Instructions Thank you for entrusting [facility] with your care. We hope you are pleased with your outpatient care and services. Because we are most concerned with your health, we suggest you carefully read the following discharge instructions: Your Discharge Instructions: MEDICATION INSTRUCTIONS: Treatment received today: shyann Reviewed medications administered today and possible side effects Dizziness and sleepiness are possible side effects of pain medication. When taking pain medications, do not drink alcohol or drive. ACTIVITY INSTRUCTIONS: Rest today, increase activity as tolerated. DIET INSTRUCTIONS: as tolerated FOLLOW-UP CARE: Call your doctor for a follow-up appointment: Notify physician for complications such as: Fever over 101*, Rash, Hives, difficulty breathing, unrelieved nausea or pain, redness or swelling in one limb greater than the other, constipation, diarrhea, bleeding Please contact your physician if you have problems related to your procedure or if symptoms persistor worsen. If physician is unavailable, go to the Emergency Room. Additional Instructions: Our hours of operation are Friday - Friday 8:00 AM - 4:30 PM. [facility] [id number] [place] [address] documented in this encounter Plan of Treatment Upcoming Encounters Date Type Department Care Team (Late st Contact Info) Description 03/23/2025 1:00 PM EDT Appointment [address] [place] [address] 03/23/2025 1:30 PM EDT Appointment [address] [place] [address] Sherrill Stroud APRN [address] [place] [address] [place] [address] documented as of this encounter Goals Goal [...] (chronic) Iron malabsorption Other specified intestinal malabsorption documented in this encounter Administered Medications Inactive Administered Medications - up to 1 most recent administrations Medication Order MAR Action Action Date Dose Rate Site 0.9 % NaCl infusion Intravenous, at 30 mL/hr, CONTINUOUS, Starting on Fri01/19/25 at 1500, Until Fri01/20/25 at 1459, For liner inserter during infusion., Dx: 1. Iron deficiency anemia due to chronic blood loss 2. Iron malabsorptionIndications:Ir on deficiency anemia due to chronic blood loss,Iron malabsorption Rate/Dose Verify 01/19/2025 3:48 PM EDT 240 mL/hr iron sucrose (VENOFER) in sodium chloride 0.9% 120mL infusion 200 mg 200 mg, Intravenous, ONCE, 1 dose, On Fri01/19/25 at 1515, Administer over 30 Minutes, VESICANT , Dx: 1. Iron deficiency anemia due to chronic blood loss 2. Iron malabsorptionIndications:Ir on deficiency anemia due to chronic blood loss,Iron malabsorption IV Started 01/19/2025 3:16 PM EDT 200 mg 240 mL/hr sodium chloride 0.9% syringe Intravenous, PRN, Starting on Fri01/19/25 at 1458, Until Fri01/21/25 at 0412, Line Care, Flush after IV medication, Dx: 1. Iron deficiency anemia due to chronic blood loss 2. Iron malabsorptionIndications:Ir on deficiency anemia due to chronic blood loss,Iron malabsorption Given 01/19/2025 3:09 PM EDT 10 mL documented in this encounter Additional Health Concerns Assessment Noted Time A fall risk assessment has been complete d for the patient 01/22/2024 4:21 PM EDT documented as of this encounter Care Teams Freezer Operator Relationship Specialty Start Date End Date Gloria Whitmore MD [address] [place] [address] PCP - General Family Medicine 08/07/17 Hui Slater MD [address] [place] [address] [place], [place] [id number] Medical Oncologist Internal Medicine-Hematology and Oncology 11/10/24 documented as of this encounter
--- OUTSIDE RECORDS SUMMARY | 2025-01-26 12:54 | XMS_ITS | Encounter Summary ---
Author Organization [place] [address] Care Team Providers Care Flight Engineer Helicopter Name Role Phone Gloria Whitmore MD Primary Care Provider [phone] Hui Slater MD Unavailable [phone] Reason for Visit * Oncology Medication Prior Authorization (Routine) - Closed Specialty Diagnoses / Procedures Referred By Contac t Referred To Contact Diagnoses 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 Procedures [place] IRON SUCROSE INJECTION Sherrill Stroud APRN [address] [place] [address] Phone: tel: fax: Sherrill Stroud APRN [address] [place] [address] Phone: tel: fax: Referral ID Status Reason Start Date Expiration Date Visits Re quested Visits Authorized [id number] Closed 01/20/2025 01/20/2026 1 5 Encounter Details Date Type Department Care Team (Latest Contact Info) Description 01/26/2025 12:54 PM EDT - 01/26/2025 11:59 PM EDT Hospital Encounter [facility] [address] [place] [address] Iron deficiency anemia due to chronic blood loss (Primary Dx); Iron malabsorption Discharge Disposition: Home or Self Care Social History Tobacco Use Types Packs/Day Years Used Date Smoking Tobacco: Former Cigarettes Q uit: 06/22/1976 Passive Smoke Exposure: Past Smokeless Tobacco: Never Alcohol Use Standard Drinks/Week Comments No 0 (1 standard drink = 0.6 oz pur e alcohol) [facility] Utilities Answer Date Recorded In [...] Date Recorded PHQ-2 Total Score 0 06/30/2024 [facility] - [...] money to get more. Never true 05/20/2024 [facility] IP Transportation Answer D ate Recorded In [...] Sign Reading Time Taken Comments Blood Pressure 122/57 01/26/2025 2:12 PM EDT Pulse 51 01/26/2025 2:12 PM EDT Temperature 36.4 C (97.5 F) 01/26/2025 2:12 PM EDT Respiratory Rate 18 01/26/2025 2:12 PM EDT Oxygen Saturation 97% 01/26/2025 2:12 PM EDT Inhaled Oxygen Concentration - - Weight 80.7 kg (177 lb 14.4 oz) 01/26/2025 2:11 PM EDT Height - - Body Mass Index 26.27 01/11/2025 2:11 PM EDT documented in this [...] mg Oral TabletIndications :Coronary artery disease involving [place] coronary artery of [place] heart without angina pectoris Take 1 Tablet [...] Patient Instructions - Lucila Asher RN - 01/26/2025 1:15 PM EDT [facility] Discharge Instructions Thank you for entrusting the [facility] with your care. We hope you are [...] - Friday 8:00 AM - 4:30 PM. [facility] [address] [id number] [place] [address] [address] documented in this encounter Plan of Treatment Upcoming Encounters Date Type Department Care Team (Late st Contact Info) Description 03/23/2025 1:00 PM EDT Appointment [place] [address] [place] [address] 03/23/2025 1:30 PM EDT Appointment [facility] [address] [place] [address] Sherrill Stroud APRN [address] [facility] [place] [address] documented as of this encounter Goals [...] Intravenous, at 30 mL/hr, CONTINUOUS, Starting on Fri01/26/25 at 1330, Until Fri01/27/25 at 1329, For online communications specialist during infusion., Dx: 1. Iron deficiency anemia due to chronic blood loss 2. Iron malabsorptionIndications:Ir on deficiency anemia due to chronic blood loss,Iron malabsorption Rate/Dose Verify 01/26/2025 2:13 PM EDT 240 mL/hr iron sucrose (VENOFER) in sodium chloride 0.9% 120mL infusion 200 mg 200 mg, Intravenous, ONCE, 1 dose, On Fri01/26/25 at 1345, Administer over 30 Minutes, VESICANT , Dx: 1. Iron deficiency anemia due to chronic blood loss 2. Iron malabsorptionIndications:Ir on deficiency anemia due to chronic blood loss,Iron malabsorption IV Started 01/26/2025 1:41 PM EDT 200 mg 240 mL/hr sodium chloride 0.9% syringe Intravenous, PRN, Starting on Fri01/26/25 at 1323, Until Fri01/28/25 at 0408, Line Care, Flush after IV medication, Dx: 1. Iron deficiency anemia due to chronic blood loss 2. Iron malabsorptionIndications:Ir on deficiency anemia due to chronic blood loss,Iron malabsorption Given 01/26/2025 1:39 PM EDT 10 mL documented in this encounter Additional Health Concerns Assessment Noted Time A fall risk assessment has been complete d for the patient 01/22/2024 4:21 PM EDT documented as of this encounter Care Teams Flight Engineer Helicopter Relationship Specialty Start Date End Date Gloria Whitmore MD [address] [place] [address] PCP - General Family Medicine 08/07/17 Hui Slater MD [address] [place] [address] Medical Oncologist Internal Medicine-Hematology and Oncology 11/10/24 documented as of this encounter
--- OUTSIDE RECORDS SUMMARY | 2025-02-02 13:24 | XMS_ITS | Encounter Summary ---
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 [address] Iron deficiency anemia due to chronic blood loss (Primary Dx); Iron malabsorption Discharge Disposition: Home or Self Care Social History Tobacco Use Types Packs/Day Years Used Date Smoking Tobacco: Former Cigarettes Q uit: 06/22/1976 Passive Smoke Exposure: Past Smokeless Tobacco: Never Alcohol Use Standard Drinks/Week Comments No 0 (1 standard drink = 0.6 oz pur e alcohol) [facility] Utilities Answer Date Recorded In the [...] Date Recorded PHQ-2 Total Score 0 06/30/2024 [facility] of Occupat ional Health - Occupational Stress [...] money to get more. Never true 05/20/[address] [facility] IP Transportation Answer D ate Recorded [...] Sign Reading Time Taken Comments Blood Pressure 151/73 02/02/2025 3:03 PM EDT Pulse 54 02/02/2025 3:03 PM EDT Temperature 36.7 C (98 F) 02/02/2025 3:03 PM EDT Respiratory Rate 18 02/02/2025 3:03 PM EDT Oxygen Saturation 100% 02/02/2025 3:03 PM EDT Inhaled Oxygen Concentration - - Weight 80.5 kg (177 lb 8 oz) 02/02/2025 2:19 PM EDT Height - - Body Mass Index 26.21 01/11/2025 2:11 PM EDT documented in this [...] mg Oral TabletIndications :Coronary artery disease involving [place] coronary artery of [place] heart without angina pectoris Take 1 Tablet by mouth nightly. 90 Tablet 3 06/30/2024 verapamiL (CALAN-SR) 120 mg Oral Tablet Sustained ReleaseIndication s:Tachycardia Take 1 Tablet by mouth 2 times daily. 180 Tablet 1 12/24/2021 documented as of this encounter Discharge Disposition Disposition Code Departure Means Destination Home or Self Care documented in this encounter Miscellaneous Notes * Patient Instructions - Deloris Samuels RN - 02/02/2025 1:30 PM EDT [facility] Discharge Instructions Thank you for entrusting the [facility] with your care. We hope you are pleased with your outpatient care and services. Because we are most concerned with your health, we suggest you carefully read the following discharge instructions: Your Discharge Instructions: MEDICATION INSTRUCTIONS: Treatment received today: Dwight Reviewed medications administered today and possible side [...] - Friday 8:00 AM - 4:30 PM. [facility] [id number], [place] [id number] documented in this encounter Plan of Treatment Upcoming Encounters Date Type Department Care Team (Late st Contact Info) Description 03/23/2025 1:00 PM EDT Appointment [place] [address] [place] [address] 03/23/2025 1:30 PM EDT Appointment [facility] [address] [place] [id number] Sherrill Stroud, PRECIPITATOR SUPERVISOR [address] [facility] [facility] [address] [place] [id number] documented as of this encounter Goals [...] Intravenous, at 30 mL/hr, CONTINUOUS, Starting on Fri02/02/25 at 1415, Until Emmie 02/03/25 at 1414, For line construction engineer during infusion., Dx: 1. Iron deficiency anemia due to chronic blood loss 2. Iron malabsorptionIndications:Ir on deficiency anemia due to chronic blood loss,Iron malabsorption Rate/Dose Verify 02/02/2025 3:10 PM EDT 240 mL/hr iron sucrose (VENOFER) in sodium chloride 0.9% 120mL infusion 200 mg 200 mg, Intravenous, ONCE, 1 dose, On Fri02/02/25 at 1430, Administer over 30 Minutes, VESICANT , Dx: 1. Iron deficiency anemia due to chronic blood loss 2. Iron malabsorptionIndications:Ir on deficiency anemia due to chronic blood loss,Iron malabsorption IV Started 02/02/2025 2:37 PM EDT 200 mg 240 mL/hr sodium chloride 0.9% syringe Intravenous, PRN, Starting on Fri02/02/25 at 1414, Until Fri02/04/25 at 0405, Line Care, Flush after IV medication, Dx: 1. Iron deficiency anemia due to chronic blood loss 2. Iron malabsorptionIndications:Ir on deficiency anemia due to chronic blood loss,Iron malabsorption Given 02/02/2025 2:26 PM EDT 10 mL documented in this encounter Additional Health Concerns Assessment Noted Time A fall risk assessment has been complete d for the patient 01/22/2024 4:21 PM EDT documented as of this encounter Care Teams Doctor Of Podiatry Relationship Specialty Start Date End Date Gloria Whitmore MD [address] [place] [address] PCP - General Family Medicine 08/07/17 Hui Slater MD [address] [place] [address] Medical Oncologist Internal Medicine-Hematology and Oncology 11/10/24 documented as of this encounter
--- OUTSIDE RECORDS SUMMARY | 2025-02-23 13:45 | XMS_ITS | Encounter Summary ---
Author Organization [place] [address] Care Team Providers Care Gun Fertilizer Name Role Phone Gloria Whitmore MD Primary Care Provider [phone] Hui Slater MD Unavailable [phone] Reason for Referral * Home Health Care (Routine) - Pending Review Specialty Diagnoses / Procedures Referred By Contac t Referred To Contact Home Health Diagnoses Coronary artery disease involving [place] coronary artery of [place] heart without angina pectoris Memory disturbance Impaired mobility and ADLs Debility Gloria Whitmore MD [address] [place] [address] Phone: tel: fax: [facility], [facility] [address] [place] [address] Phone: tel: fax: Referral ID Status Reason Start Date Expiration Date Visits Requested Visits Authorized [id number] Pending Review Continuity of Care 02/23/2025 02/23/2026 1 1 Comments [facility] Physician Certificate of Medical Necessity for Home Care Services Face to Face Encounter Home Health: Need for Home Health Services I certify that based on my findings: Home health services are medically necessary for this patient. This patient is homebound based on the following information:decreased strength, decreased endurance, requires frequent rest periods, unsteady gait, weakness, needs assistance for ambulation, and dependent on assistive device for ambulation. My clinical findings support the need for the above services because:strength and endurance training, home safety assessment, frequent falls, frequent/multiple hospitalizations, and assistance with community resources. Recommended Nursing Services: Skilled Assessment Therapies to Evaluate and Treat: Physical Therapy and Occupational Therapy Agency Choice/Phone Number: Height: 5' 9 (175.3 cm) (02/23/25 7921) Weight: 179 lb (81.2 kg) (02/23/25 0651) Encounter Date and Reason for Encounter I certify that I, or a qualified hospitalist practitioner working with me, had a face to face encounter with this patient on the date indicated below due to the medical condition also listed below, which related to the primary reason the patient requires home health services. Encounter Date: 02/23/2025 Need for Home Health Services I certify that based on my findings: A. Home health services are medically necessary for this patient due to the following medical conditions: Patient Active Problem List: Dyslipidemia CAD (coronary artery disease) / History of MT 2010 / S/P coronary artery stent placement GERD (gastroesophageal reflux disease) PVC (premature ventricular contraction) Colon polyp LFT elevation Metabolic syndrome Old myocardial infarction History of prostate cancer Syncope Paroxysmal ventricular tachycardia (HCC) Bradycardia Paroxysmal atrial fibrillation (HCC) Closed fracture of left hip, initial encounter ([facility]) Closed left hip fracture, initial encounter ([facility]) ABLA (acute blood loss anemia) Closed fracture of right hip, initial encounter (HCC) Primary hypertension S/P coronary artery stent placement Age-related osteoporosis with current pathological fracture Microcytic anemia 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 Impaired mobility and ADLs Debility Memory disturbance I certify that this patient is under my care, or has been referred to another physician having professional knowledge of the patient's condition. Services ordered above are needed to treat condition for which patient was hospitalized and/or seen in the office. The composed above information is based on my clinical judgment relating to this patient's medical condition. 02/23/2025 The information requested on this form is mandated by the Affordable Care Act, effective May. Home Care services cannot be provided to the patient without completion of this document. The Plan of Care will be forwarded to the patient's primary physician for approval after services have commenced. A hospitalist or covering physician may certify home care even if they will not be caring for the patient after discharge. * Consultation (Routine) - Authorization Not Needed Specialty Diagnoses / Procedures Referred By Contac t Referred To Contact Neurology Diagnoses Memory disturbance Procedures NM OFFICE/OUTPATIENT NEW MODERATE MDM 45 MINUTES Gloria Whitmore MD [address] [place] [address] Phone: tel: fax: Russell Henning MD [facility] [address] [place] [address] Phone: tel: fax: Referral ID Status Reason Start Date Expiration Date Visits Requested Visits Authorized [id number] Authorization Not Needed 02/23/2025 02/23/2026 99 99 * Consultation (Routine) - Authorization Not Needed Specialty Diagnoses / Procedures Referred By Contac t Referred To Contact Diagnoses Psoriasis Skin lesion Procedures NM OFFICE/OUTPATIENT NEW MODERATE MDM 45 MINUTES Gloria Whitmore MD [address] [place] [address] Phone: tel: fax: Uday Garza MD [address] [facility] [place] [address] Phone: tel: fax: Referral ID Status Reason Start Date Expiration Date Visits Requested Visits Authorized [id number] Authorization Not Needed Specialty Services Required 02/23/2026 99 99 Question Answer Provider Options First Available Are you an oncology provider? No Is this for a skin lesion or rash referral? Skin Lesion Referral Is there a photo? No Is melanoma suspected? No Has a biopsy been done? No If this is an URGENT referral and the patient needs to be seen within the next 4 weeks, please use the On-Call finder and send a message to the provider manager documentation. Your message will be answered within 24 hours business hours. Please include a photo. Non Urgent Reason for Visit * Reason Comments Annual Exam Medication Refill Other talk about home heal th Encounter Details Date Type Department Care Team (Late st Contact Info) Description 02/23/2025 1:45 PM EDT Office Visit [facility] [address] [id number] Gloria Whitmore MD [address] [facility] [place] [address] Annual physical exam (Primary Dx); Flu vaccine need; Psoriasis; Skin lesion; Coronary artery disease involving [place] coronary artery of [place] heart without angina pectoris; Memory disturbance; Impaired mobility and ADLs; Debility; Iron deficiency anemia, unspecified iron deficiency anemia type; Vitamin D deficiency Social History Tobacco Use Types Packs/Day Years Used Date Smoking Tobacco: Former Cigarettes Q uit: 06/22/1976 Passive Smoke Exposure: Past Smokeless Tobacco: Never Alcohol Use Standard Drinks/Week Comments No 0 (1 standard drink = 0.6 oz pur e alcohol) [facility] Utilities Answer Date Recorded In the past 12 months has e electric, gas, oil, or water company threatened to shut off services in your home? No 05/20/2024 Overall Financial Resource Strain (CARDIA) Answe r Date Recorded How hard is it for you to pa y for the very basics like food, housing, medical care, and heating? Not very hard 05/20/2024 PHQ-2 Answer Date Recorded PHQ-2 Total Score 0 06/30/2024 [place] [facility] - Occupational Stress [...] money to get more. Never true 05/20/2024 [facility] IP Transportation Answer D ate Recorded In [...] Sign Reading Time Taken Comments Blood Pressure 124/82 02/23/2025 1:56 PM EDT Pulse - - Temperature 36.6 C (97.9 F) 02/23/2025 1:56 PM EDT Respiratory Rate - - Oxygen Saturation - - Inhaled Oxygen Concentration - - Weight 81.2 kg (179 lb) 02/23/2025 1:56 PM EDT Height 175.3 cm (5' 9 ) 02/23/2025 1:56 PM EDT Body Mass Index 26.43 02/23/2025 1:56 PM EDT documented in this encounter Functional [...] Entry Date Author No 06/30/2024 1:22 PM ROSETTA Ebony Mcallister ALLI Benavidez documented in this encounter Ordered Prescriptions Prescription Sig Dispense Quantity Refills Last Filled Start Date End Date ciclopirox (LOPROX) 0.77 % Top CreamIndications:P soriasis Apply topically 2 times daily. 60 g 3 02/23/2025 fluconazole (DIFLUCAN) 100 mg Oral TabletIndications: Psoriasis Take 1 Tablet by mouth daily for 14 days. 14 Tablet 02/23/2025 documented in this encounter Progress Notes * Gloria Whitmore MD - 02/23/2025 1:45 PM EDT Assessment & Plan 1. Medicare checkup: - His weight has remained stable, with a slight increase from 177.5 to 179 pounds. - Blood pressure is well-controlled at 124/82 mmHg. - He is advised to continue participating in the [employer] program. - A referral for home health care will be made to assist with bathing and other daily activities. Blood work will be ordered today, and the results will be shared with Sherrill Stroud to determine if additional tests are necessary. 2. Seborrheic keratosis: - The dark appearance of the lesion on his hand is concerning. - A referral to a barrel loader and cleaner will be made for further evaluation and potential biopsy or cryotherapy. 3. Superficial fungal infection: - The infection appears to be a result of sensitive skin, possibly due to psoriasis, that has become infected with common skin luke such as staph, strep, or yeast. - An antifungal medication will be prescribed, along with Loprox cream to prevent his immune systemfrom attacking the skin. 4. Low iron counts: - He had low iron counts and saw Sherrill Stroud at the hospital in the spring. He had 5 sessions of treatment and returned 3 months later for more blood work, after which 3 additional sessions were recommended. He recently completed these sessions. - He is scheduled to see Sherrill Stroud again at the end of this month. Dx/Orders: Diagnoses and all orders for this visit: Annual physical exam - CBC WITH DIFF; Future - COMPREHENSIVE METABOLIC PANEL; Future - HEMOGLOBIN A1C; Future - LIPID SCREEN; Future - TSH REFLEX TO FT4; Future - VITAMIN B12/ FOLIC ACID; Future - FERRITIN; Future - IRON+TIBC; Future Flu vaccine need - FLUZONE HIGH DOSE - CBC WITH DIFF; Future - COMPREHENSIVE METABOLIC PANEL; Future - HEMOGLOBIN A1C; Future - LIPID SCREEN; Future - TSH REFLEX TO FT4; Future - VITAMIN B12/ FOLIC ACID; Future - FERRITIN; Future - IRON+TIBC; Future Psoriasis - fluconazole (DIFLUCAN) 100 mg Oral Tablet; Take 1 Tablet by mouth daily for 14 days. Dispense: 14Tablet; Refill: 0 - ciclopirox (LOPROX) 0.77 % Top Cream; Apply topically 2 times daily. Dispense: 60 g; Refill: 3 - AMB REFERRAL TO DERMATOLOGY - CBC WITH DIFF; Future - COMPREHENSIVE METABOLIC PANEL; Future - HEMOGLOBIN A1C; Future - LIPID SCREEN; Future - TSH REFLEX TO FT4; Future - VITAMIN B12/ FOLIC ACID; Future - FERRITIN; Future - IRON+TIBC; Future Skin lesion - AMB REFERRAL TO DERMATOLOGY - CBC WITH DIFF; Future - COMPREHENSIVE METABOLIC PANEL; Future - HEMOGLOBIN A1C; Future - LIPID SCREEN; Future - TSH REFLEX TO FT4; Future - VITAMIN B12/ FOLIC ACID; Future - FERRITIN; Future - IRON+TIBC; Future Coronary artery disease involving [place] coronary artery of [place] heart without angina pectoris - CBC WITH DIFF; Future - COMPREHENSIVE METABOLIC PANEL; Future - HEMOGLOBIN A1C; Future - LIPID SCREEN; Future - TSH REFLEX TO FT4; Future - VITAMIN B12/ FOLIC ACID; Future - FERRITIN; Future - IRON+TIBC; Future - AMB REFERRAL TO HOME HEALTH Memory disturbance - CBC WITH DIFF; Future - COMPREHENSIVE METABOLIC PANEL; Future - HEMOGLOBIN A1C; Future - LIPID SCREEN; Future - TSH REFLEX TO FT4; Future - VITAMIN B12/ FOLIC ACID; Future - FERRITIN; Future - IRON+TIBC; Future - AMB REFERRAL TO NEUROLOGY - AMB REFERRAL TO HOME HEALTH Impaired mobility and ADLs - CBC WITH DIFF; Future - COMPREHENSIVE METABOLIC PANEL; Future - HEMOGLOBIN A1C; Future - LIPID SCREEN; Future - TSH REFLEX TO FT4; Future - VITAMIN B12/ FOLIC ACID; Future - FERRITIN; Future - IRON+TIBC; Future - AMB REFERRAL TO HOME HEALTH Debility - CBC WITH DIFF; Future - COMPREHENSIVE METABOLIC PANEL; Future - HEMOGLOBIN A1C; Future - LIPID SCREEN; Future - TSH REFLEX TO FT4; Future - VITAMIN B12/ FOLIC ACID; Future - FERRITIN; Future - IRON+TIBC; Future - AMB REFERRAL TO HOME HEALTH Iron deficiency anemia, unspecified iron deficiency anemia type - CBC WITH DIFF; Future - COMPREHENSIVE METABOLIC PANEL; Future - HEMOGLOBIN A1C; Future - LIPID SCREEN; Future - TSH REFLEX TO FT4; Future - VITAMIN B12/ FOLIC ACID; Future - FERRITIN; Future - IRON+TIBC; Future Vitamin D deficiency - VITAMIN D 25 HYDROXY; Future No follow-ups on file. Subjective Radhames Monroy is a 85 y.o. male Chief Complaint Patient presents with Annual Exam Medication Refill Other talk about home health Medicare Wellness Assessment: Subsequent Annual Medicare Wellness Assessment. Risk Assessments: Fall Risk Assessment Has the patient had any fall with injury in the past year?: (!) Yes Has the patient had 2 or more falls in the past year?: No Is the patient able to sit without assistance?: Yes Is the patient able to get up without assistance?: Yes Does the patient have a difficult time ambulating when first getting up?: No Does the patient have rugs or runners in the home?: No Does the patient have grab bars in the bathroom?: Yes Does the patient have stairs inside or outside of the home?: No (In Office Assessment Only): Is the patient able to ambulate without assistance/device and with a gait steady?: (!) No (In Office Assessment Only): TUG test: Time patient going from sitting to standing, walk 10 feet, return to chair and sit. Record time. : Less or equal to 12 seconds Functional Status Assessment Functional Level: self care Functional Mobility Assessment: independent w/o assist device Assessment of transportation needs: still drives most of the time Functional Activities of Daily Living Limitations: (!) ambulation Bladder: Do you have issues with your bladder, such as urgency or leaking urine?: No issues Does the patient report issues or concerns regarding hearing?: No Activities of Daily Living Assistive Device Assessment Assistive Devices: None Home O2 Device: Room Air Osteoporosis Screening Assessment Has the patient had a DEXA (Bone Density) scan in the past 2 years?: Not applicable (male) No results found for this or any previous visit. Abnormal Pains Assessment Excluding what you would consider normal aches and pains for your age and medical condition, do youhave any unusual or worrisome pains?: No Opiate Screening Are you currently on opiate or narcotic medications?: No PHQ Depression Screening Results Little interest or pleasure in doing things: 0 Feeling down, depressed, or hopeless: 0 PHQ-2 Total Score: 0 PHQ-9 Total Score: 0 Advanced Directive Evaluation Does the patient have an Advance Directive?: (!) Yes, but not on file (Please bring your Advance Directive to your next office visit) Advance Care Planning Guide Given?: (!) No (For Dementia Screening below can use either AD-8 or Mini Cog. Doesn't require both.) AD-8 Dementia Screening tool results Problems with judgement: 0 Less interest in hobbies/activities: 0 Repeats the same things over and over: 0 Trouble learning how to use a tool, appliance or gadget: 0 Forgets correct month or year: 0 Trouble handling complicated financial affairs: 0 Trouble remembering appointments: 0 Daily problems with thinking and/or memory: 0 Total AD8 score:: 0 Mini Cog Dementia Screening tool results Number of words immediately repeated back correctly.: 3 Number of Words Recalled: 3 Dementia: Negative Welcome to Medicare Vision Screening Eye Exam : Not applicable/required for Subsequent AWV, only required for Welcome to Medicare Visit Patient Instructions AWV findings and Plan of Care: Recommendations as part of the Personal Plan of Care based on risk screening assessments are: Fall Risk Assessment: Fall Risk Assessment: negative - re-assess in 1 year Functional Status/Social Determinates of Health: stable, no issues, re-assess in 1 year Depression Screening: negative - re-assess in 1 year Dementia Screening: negative - recommend re-assess in 1 year Vaccinations: patient declined all vaccines today Exercise/Activity: recommended continuing current Recommended follow up annually for Medicare Annual Wellness Visit. Good preventative health care is important in reducing morbidity and mortality. I recommend exercise regularly as tolerated focusing on strength and balance. I recommend a balanced diet focusing on fruits, veggies, and lean meats. I recommend avoiding having rugs, runners, or other loose trip hazards in the home as these increase fall risk. I recommend installing grab bars in the bathrooms close to toilets, in tubs, and in showers as these are common areas for falls when transitioning from wet surfaces to dry surfaces, or visa versa. This is also an area of the home that is high risk for falls at night. I encourage having an Advanced Directives. This is something we recommend you have on file at home,as well as something that we should have on file in our records. If we don't have a copy of your current Advanced Directive, please bring a copy to your next visit. If you have a power of patent prosecution attorney orsurrogate, we should also have a copy on file. I encourage candid discussion with your family on your wishes in the event that you are incapacitated and unable to participate in direct medical decision making. It is important to stay up to date on recommended vaccinations, please see the health maintenance topics due below and if we have not completed one of those topics today, please consider completing as part of your wellness plan this year. Below are other health maintenance topics that are recommended to be closed at your earliest opportunity. You may notice that some of these were addressed in the office today and will show as resolved in your [facility] account soon. Health Maintenance Due Topic Date Due Zoster (1 of 2) Never done DTaP/TDaP/Td (2 - Td or Tdap) 06/25/2024 Wellness Exam Medicare 01/22/2025 COVID-19 Vaccine ( season) 2025 As part of today's visit the components of the Medicare wellness assessment were completed. These components included reviewing the information available in the risk screening questionnaire that was administered by ancillary staff either today or prior to today's visit (pre-visit planning) and recorded in the Medicare Wellness Assessment Flowsheet in the EMR. I have reviewed the data in regards to fall risk, activities of daily living/functional status, depression screening, dementia screening,and outstanding Health Maintenance topics and edited where necessary. The staff has reviewed and updated the past medical history, social history, family history, allergies, medications, and care team information during the standard rooming process. I have also reviewed this data as part of today'svisit. Below are the findings, recommendations, and Personal Plan of Care. The patient received a copy of their Personal Plan of Care including health maintenance topics thatare recommended to be completed and this can be noted in the after visit summary. The AVS is provided to the patient digitally through their MyChart account or with a paper copy if the patient doesn't have an active MyChart Account. A copy of today's progress note with recommendations below is alsoavailable electronically for patients with an active MyChart account per the Federal Cures Act. TheAVS also contains additional patient education if appropriate on topics common to wellness and their plan of care. History Reviewed: No results found. Results for orders placed or performed in visit on 02/23/25 CBC WITH DIFF Result Value Ref Range WBC 6.7 3.7 - 10.3 x10(3)/mcL RBC 4.55 (L) 4.60 - 6.10 x10(6)/mcL Hgb 13.8 13.7 - 17.5 g/dL Hct 43.3 40.0 - 51.0 % MCV 95.2 80.0 - 100.0 fL MCH 30.3 26.0 - 34.0 pg MCHC 31.9 30.7 - 35.5 g/dL RDW 13.6 <=14.9 % Platelet 169 155 - 369 x10(3)/mcL MPV 11.0 8.8 - 12.5 fL Neut Percent 54.8 % Imm Gran% 0.1 % Lymph Percent 28.1 % Cotton Percent 11.8 % Eos Percent 4.5 % Baso Percent 0.7 % Neut # 3.7 1.6 - 6.1 x10(3)/mcL IMMGRAN# 0.0 0.0 - 0.1 x10(3)/mcL Lymph # 1.9 1.2 - 3.9 x10(3)/mcL Cotton # 0.8 0.3 - 0.9 x10(3)/mcL Eos# 0.3 0.0 - 0.5 x10(3)/mcL Baso # 0.1 0.0 - 0.1 x10(3)/mcL COMPREHENSIVE METABOLIC PANEL Result Value Ref Range Sodium 138 136 - 145 mmol/L Potassium 4.5 3.5 - 5.0 mmol/L Chloride 102 98 - 107 mmol/L Total CO2 24 22 - 29 mmol/L Anion Gap 12 7 - 16 mmol/L Calcium 10.1 8.8 - 10.4 mg/dL Glucose Lvl 86 70 - 99 mg/dL BUN 17 8 - 23 mg/dL Creatinine 0.87 0.67 - 1.30 mg/dL Albumin 4.3 3.2 - 4.6 gm/dL Total Protein 7.7 6.4 - 8.3 gm/dL Bili Total 0.7 0.2 - 1.4 mg/dL ALT 24 <=41 U/L AST 27 <=40 U/L Alk Phos 79 40 - 129 U/L eGFR (CKD-EPIcr 2020) 84 >=60 mL/min/1.73 m2 HEMOGLOBIN A1C Result Value Ref Range Hgb A1C 5.9 (H) 4.2 - 5.6 % Est. Avg Glucose 123 mg/dL Narrative REFERENCE RANGE: Normal: 4.0-5.6% Pre-diabetes: 5.7-6.4% Provisional diagnosis of diabetes: >6.4% Hgb F>10% and anything which shortens red cell survival, such as hemolytic anemia, or unstable hemoglobin variants such as HbSS, HbSC, or HbCC, will lower the HbA1c value associated with a given level of glycemic control. LIPID SCREEN Result Value Ref Range Cholesterol 104 <200 mg/dL Triglyceride 88 <150 mg/dL HDL 33 (L) >=40 mg/dL LDL Calculated 54 <100 mg/dL Non-HDL-C Calculated 71 <=129 mg/dL Fasting Specimen? Yes None TSH REFLEX TO FT4 Result Value Ref Range TSH Reflex 2.300 0.270 - 4.200 mcIU/mL Narrative Ingestion of mine doses of biotin (>5 mg/day) taken within 8 hours of drawing blood sample can interfere with this immunoassay test. VITAMIN B12/ FOLIC ACID Result Value Ref Range Vitamin B12 728 232 - 1,245 pg/mL Folate >16.00 >=4.50 ng/mL Narrative Ingestion of mine doses of biotin (>5 mg/day) taken within 8 hours of drawing blood sample can interfere with this immunoassay test. FERRITIN Result Value Ref Range Ferritin 358 30 - 400 ng/mL Narrative Ingestion of mine doses of biotin (>5 mg/day) taken within 8 hours of drawing blood sample can interfere with this immunoassay test. IRON+TIBC Result Value Ref Range Iron 88 50 - 170 mcg/dL Transferrin 221 200 - 360 mg/dL Transferrin Saturation 28 20 - 50 % TIBC 309 250 - 400 mcg/dL VITAMIN D 25 HYDROXY Result Value Ref Range Vit D 25 OH 38.2 30.0 - 150.0 ng/mL Problem List[1] Past Medical History[2] Surgical History[3] Allergies[4] Medications ordered prior to the current encounter[5] Social History[6] Family History[7] Immunization History Administered Date(s) Administered Influenza High Dose 04/05/2015, 06/22/2018, 04/26/2020, 03/06/2021, 03/06/2022, 06/30/2024, 02/23/2025 Influenza Vaccine, Unspecified Formulation 03/25/2019 Moderna SARS-CoV-2 Bivalent Booster Vaccine 12+ Years ([place]) 03/13/2022 Moderna SARS-CoV-2 Booster Vaccine 18+ Yrs (Light Blue Border) 11/02/2021 Moderna SARS-CoV-2 Vaccine 12+ Yrs (Light blue border) 07/05/2020, 08/02/2020, 02/28/2021 Pneumococcal Conjugate Vaccine 13 Valent 06/22/2018 Pneumococcal Polysaccharide 23 Valent 08/11/2019 Quadrivalent Influenza High Dose 03/07/2023 RSV Recombinant PF (Arexvy) 03/07/2023 TST,Unspecified Formulation 02/03/2024, 02/10/2024, 05/24/2024, 05/31/2024 Tdap 06/25/2014 Health Maintenance Topic Date Due Zoster (1 of 2) Never done DTaP/TDaP/Td (2 - Td or Tdap) 06/25/2024 Wellness Exam Medicare 01/22/2025 COVID-19 Vaccine (2024- season) 2025 Influenza Vaccine Completed RSV or 60+ Completed Pneumococcal Vaccine 50+ Completed Meningococcal B Vaccine Aged Out Hepatitis B Vaccine Aged Out Patient Care Team: Gloria Whitmore MD as PCP - General (Family Medicine) Hui Slater MD as Medical Oncologist (Internal Medicine-Hematology and Oncology) Additional issues addressed today: GERD: Following up for GERD. Requires medication for symptom control daily. Feels that symptoms areadequately controlled with current treatment. He does modify diet to avoid symptoms. History of Present Illness The patient presents for a Medicare checkup and skin issues. He is currently undergoing physical therapy once a week and participates in the [employer] program. His blood pressure was reported to be within normal range. He has been experiencing some difficulty with shaving due to sensitive skin. He has previously received home health care services following a hip fracture. There is a persistent spot on his hand that has not been evaluated by a barrel loader and cleaner. Additionally, there is a red, scaly area behind his ear that becomes crusty if left uncovered. This area was nearly healed about 1.5 months ago but has since worsened. Aquaphor is applied to it intermittently. He had low iron counts and saw Sherrill Stroud at the hospital in the spring. He had 5 sessions of treatment and returned 3 months later for more blood work, after which 3 additional sessions were recommended. He recently completed these sessions and is scheduled to see Sherrill Stroud again at the [facility] this month. PAST SURGICAL HISTORY: Hip fracture repair Review of Systems Constitutional: Negative. HENT: Negative. Respiratory: Negative for cough and wheezing. Cardiovascular: Negative. Gastrointestinal: Negative for abdominal pain and diarrhea. Genitourinary: Negative. Musculoskeletal: Positive for arthralgias. Psychiatric/Behavioral: Positive for behavioral problems, confusion, decreased concentration and sleep disturbance. Objective Blood pressure 124/82, temperature 97.9 ??F (36.6 ??C), temperature source Forehead, height 5' 9 (1.753 m), weight 179 lb (81.2 kg). Body mass index is 26.43 kg/m??. Physical Exam Ears: Superficial fungal infection noted behind the ear, likely secondary to sensitive skin. Respiratory: Clear to auscultation, no wheezing, rales or rhonchi Cardiovascular: Regular rate and rhythm, no murmurs, rubs, or gallops Skin: Dark lesion on the hand, likely seborrheic keratosis. Red and scaly area behind the ear, likely a superficial fungal infection. Physical Exam Vitals and nursing note reviewed. HENT: Head: Normocephalic. Cardiovascular: Rate and Rhythm: Normal rate. Pulmonary: Effort: Pulmonary effort is normal. Abdominal: Palpations: Abdomen is soft. Neurological: Mental Status: He is alert. Results Results for orders placed or performed in visit on 02/23/25 CBC WITH DIFF Result Value Ref Range WBC 6.7 3.7 - 10.3 x10(3)/mcL RBC 4.55 (L) 4.60 - 6.10 x10(6)/mcL Hgb 13.8 13.7 - 17.5 g/dL Hct 43.3 40.0 - 51.0 % MCV 95.2 80.0 - 100.0 fL MCH 30.3 26.0 - 34.0 pg MCHC 31.9 30.7 - 35.5 g/dL RDW 13.6 <=14.9 % Platelet 169 155 - 369 x10(3)/mcL MPV 11.0 8.8 - 12.5 fL Neut Percent 54.8 % Imm Gran% 0.1 % Lymph Percent 28.1 % Cotton Percent 11.8 % Eos Percent 4.5 % Baso Percent 0.7 % Neut # 3.7 1.6 - 6.1 x10(3)/mcL IMMGRAN# 0.0 0.0 - 0.1 x10(3)/mcL Lymph # 1.9 1.2 - 3.9 x10(3)/mcL Cotton # 0.8 0.3 - 0.9 x10(3)/mcL Eos# 0.3 0.0 - 0.5 x10(3)/mcL Baso # 0.1 0.0 - 0.1 x10(3)/mcL COMPREHENSIVE METABOLIC PANEL Result Value Ref Range Sodium 138 136 - 145 mmol/L Potassium 4.5 3.5 - 5.0 mmol/L Chloride 102 98 - 107 mmol/L Total CO2 24 22 - 29 mmol/L Anion Gap 12 7 - 16 mmol/L Calcium 10.1 8.8 - 10.4 mg/dL Glucose Lvl 86 70 - 99 mg/dL BUN 17 8 - 23 mg/dL Creatinine 0.87 0.67 - 1.30 mg/dL Albumin 4.3 3.2 - 4.6 gm/dL Total Protein 7.7 6.4 - 8.3 gm/dL Bili Total 0.7 0.2 - 1.4 mg/dL ALT 24 <=41 U/L AST 27 <=40 U/L Alk Phos 79 40 - 129 U/L eGFR ([facility] 2020) 84 >=60 mL/min/1.73 m2 HEMOGLOBIN A1C Result Value Ref Range Hgb A1C 5.9 (H) 4.2 - 5.6 % Est. Avg Glucose 123 mg/dL Narrative REFERENCE RANGE: Normal: 4.0-5.6% Pre-diabetes: 5.7-6.4% Provisional diagnosis of diabetes: >6.4% Hgb F>10% and anything which shortens red cell survival, such as hemolytic anemia, or unstable hemoglobin variants such as HbSS, HbSC, or HbCC, will lower the HbA1c value associated with a given level of glycemic control. LIPID SCREEN Result Value Ref Range Cholesterol 104 <200 mg/dL Triglyceride 88 <150 mg/dL HDL 33 (L) >=40 mg/dL LDL Calculated 54 <100 mg/dL Non-HDL-C Calculated 71 <=129 mg/dL Fasting Specimen? Yes None TSH REFLEX TO FT4 Result Value Ref Range TSH Reflex 2.300 0.270 - 4.200 mcIU/mL Narrative Ingestion of mine doses of biotin (>5 mg/day) taken within 8 hours of drawing blood sample can interfere with this immunoassay test. VITAMIN B12/ FOLIC ACID Result Value Ref Range Vitamin B12 728 232 - 1,245 pg/mL Folate >16.00 >=4.50 ng/mL Narrative Ingestion of mine doses of biotin (>5 mg/day) taken within 8 hours of drawing blood sample can interfere with this immunoassay test. FERRITIN Result Value Ref Range Ferritin 358 30 - 400 ng/mL Narrative Ingestion of mine doses of biotin (>5 mg/day) taken within 8 hours of drawing blood sample can interfere with this immunoassay test. IRON+TIBC Result Value Ref Range Iron 88 50 - 170 mcg/dL Transferrin 221 200 - 360 mg/dL Transferrin Saturation 28 20 - 50 % TIBC 309 250 - 400 mcg/dL VITAMIN D 25 HYDROXY Result Value Ref Range Vit D 25 OH 38.2 30.0 - 150.0 ng/mL The provider educated the patient (or legal telephone service representative) on the use of the ambient listening artificial intelligence tool, KATHY Cop[employer]. They were informed that this AI tool processes the conversation to generate a clinical note with the expected benefit of improved accuracy while achieving an improved encounter experience for the patient and provider.?The provider explained that the medical information captured by the AI tool including, but not limited to, diagnoses and treatment plan would be protected in accordance with applicable privacy laws and that all diagnoses and treatment decisions would be made by the provider. The provider explained that the note generated will be reviewed bythe provider for accuracy to minimize potential errors.? The patient was given an opportunity to ask questions and opt out of proceeding with the use of the AI tool. After being informed of such information, the patient (or legal telephone service representative), and each individual in attendance with the patient, verbally consented to the use of the AI tool. [1] Patient Active Problem List Diagnosis Dyslipidemia CAD (coronary artery disease) / History of MT 2010 / S/P coronary artery stent placement GERD (gastroesophageal reflux disease) PVC (premature ventricular contraction) Colon polyp LFT elevation Metabolic syndrome Old myocardial infarction History of prostate cancer Syncope Paroxysmal ventricular tachycardia (HCC) Bradycardia Paroxysmal atrial fibrillation ([facility]) Closed fracture of left hip, initial encounter ([facility]) Closed left hip fracture, initial encounter ([facility]) ABLA (acute blood loss anemia) Closed fracture of right hip, initial encounter ([facility]) Primary hypertension S/P coronary artery stent placement Age-related osteoporosis with current pathological fracture Microcytic anemia 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 Impaired mobility and ADLs Debility Memory disturbance [2] Past Medical History: Diagnosis Date Age-related osteoporosis with current pathological fracture 05/20/2024 Anemia 05/20/2024 Cardiac dysrhythmia, unspecified on med for PVC GERD (gastroesophageal reflux disease) Hyperlipidemia Metabolic syndrome 02/06/2011 MT (myocardial infarction) ([facility]) 07/04/20101992 Prostate CA ([facility]) 07/04/201012/2008 S/P angioplasty 1993 x2 no stents [3] Past Surgical History: Procedure Laterality Date NASAL SINUS SURGERY PARTIAL HIP ARTHROPLASTY Left 01/23/2024 LEFT HIP ANNA ARTHROPLASTY; Surgeon: Ovi Higuera MD; Location: [facility] OR; Service: Orthopedics PARTIAL HIP ARTHROPLASTY Right 05/20/2024 RIGHT HIP ANNA ARTHROPLASTY-ANTERIOR - ([facility]); Surgeon: Rosalino Patel MD; Location: [facility] OR; Service: Orthopedics PROSTATE SURGERY 2008 [4] Allergies Allergen Reactions No Known Allergies [5] Current Outpatient Medications on File Prior to Visit Medication Sig Dispense Refill Cholecalciferol, Vitamin D3, 25 mcg (1,000 unit) Oral Capsule Take by mouth daily. cyanocobalamin 1,000 mcg Oral Tablet Take 1 Tablet by mouth three times a week. 36 Tablet 1 ELIQUIS 2.5 mg Oral Tablet ezetimibe (ZETIA) 10 mg Oral Tablet Take 1 Tablet by mouth daily. 90 Tablet 1 multivitamin capsule Take 1 Cap by mouth daily. rosuvastatin (CRESTOR) 20 mg Oral Tablet Take 1 Tablet by mouth nightly. 90 Tablet 3 verapamiL (CALAN-SR) 120 mg Oral Tablet Sustained Release Take 1 Tablet by mouth 2 times daily. 180Tablet 1 apixaban (ELIQUIS) 5 mg Oral Tablet Take 1 Tablet by mouth 2 times daily. (Patient not taking: Reported on 02/23/2025) 28 Tablet 0 No current facility-administered medications on file prior to visit. [6] Social History Socioeconomic History Marital status: Spouse name: None Number of children: None Years of education: None Highest education level: None Tobacco Use Smoking status: Former Current packs/day: 0.00 Types: Cigarettes Quit date: 06/22/1976 Years since quittin.7 Passive exposure: Past Smokeless tobacco: Never Vaping Use Vaping status: Never Used Substance and Sexual Activity Alcohol use: No Drug use: No Sexual activity: Not Currently Partners: Female Social Drivers of Health Financial Resource Strain: Low Risk (05/20/2024) Overall Financial Resource Strain (CARDIA) Difficulty of Paying Living Expenses: Not very hard Food Insecurity: No Food Insecurity (05/20/2024) Hunger Vital Sign Worried About Running Out of Food in the Last Year: Never true Ran Out of Food in the Last Year: Never true Transportation Needs: No Transportation Needs (05/20/2024) [facility] IP Transportation In the past 12 months, has lack of reliable transportation kept you from medical appointments, meetings, work or from getting things needed for daily living?: No Physical Activity: Sufficiently Active (05/20/2024) Exercise Vital Sign Days of Exercise per Week: 4 days Minutes of Exercise per Session: 40 min Stress: No Stress Concern Present (05/20/2024) [employer] [place] - Occupational Stress Questionnaire Feeling of Stress : Not at all [7] Family History Problem Relation Age of Onset Heart Disease Mother Cancer Brother lung documented in this encounter Plan of Treatment Upcoming Encounters Date Type Department Care Team (Late st Contact Info) Description 03/23/2025 1:00 PM EDT Appointment [facility] [address] [place] [address] 03/23/2025 1:30 PM EDT Appointment [facility] [address] [place] [address] Sherrill Stroud, MATTHEW [address] [facility] [place] [address] Scheduled Referrals Name Type Priority Associated Diagnoses Orde r Schedule AMB REFERRAL TO DERMATOLOGY Outpatient Referral Routine Psoriasis Skin lesion Ordered: 02/23/2025 AMB REFERRAL TO NEUROLOGY Outpatient Referral Routine Memory disturbance Ordered: 02/23/2025 AMB REFERRAL TO HOME HEALTH Outpatient Referral Routine Coronary artery disease involving [place] coronary artery of [place] heart without angina pectoris Memory disturbance Impaired mobility and ADLs Debility Ordered: 02/23/2025 documented as of this encounter Goals Goal [...] Procedure Name Priority Date/Time Associated Diagnosis Comments IRON+TIBC Routine 02/23/2025 3:19 PM EDT Flu vaccine need Psoriasis Skin lesion Annual physical exam Coronary artery disease involving [place] coronary artery of [place] heart without angina pectoris Memory disturbance Impaired mobility and ADLs Debility Iron deficiency anemia, unspecified iron deficiency anemia type VITAMIN B12/ FOLIC ACID Routine 02/23/2025 3:19 PM EDT Flu vaccine need Psoriasis Skin lesion Annual physical exam Coronary artery disease involving [place] coronary artery of [place] heart without angina pectoris Memory disturbance Impaired mobility and ADLs Debility Iron deficiency anemia, unspecified iron deficiency anemia type TSH REFLEX TO FT4 Routine 02/23/2025 3:1 9 PM EDT Flu vaccine need Psoriasis Skin lesion Annual physical exam Coronary artery disease involving [place] coronary artery of [place] heart without angina pectoris Memory disturbance Impaired mobility and ADLs Debility Iron deficiency anemia, unspecified iron deficiency anemia type VITAMIN D 25 HYDROXY Routine 02/23/2025 3:19 PM EDT Vitamin D deficiency CBC WITH DIFF Routine 02/23/2025 3:19 PM EDT Flu vaccine need Psoriasis Skin lesion Annual physical exam Coronary artery disease involving [place] coronary artery of [place] heart without angina pectoris Memory disturbance Impaired mobility and ADLs Debility Iron deficiency anemia, unspecified iron deficiency anemia type HEMOGLOBIN A1C Routine 02/23/2025 3:19 PM EDT Flu vaccine need Psoriasis Skin lesion Annual physical exam Coronary artery disease involving [place] coronary artery of [place] heart without angina pectoris Memory disturbance Impaired mobility and ADLs Debility Iron deficiency anemia, unspecified iron deficiency anemia type FERRITIN Routine 02/23/2025 3:19 PM EDT Flu vaccine need Psoriasis Skin lesion Annual physical exam Coronary artery disease involving [place] coronary artery of [place] heart without angina pectoris Memory disturbance Impaired mobility and ADLs Debility Iron deficiency anemia, unspecified iron deficiency anemia type LIPID SCREEN Routine 02/23/2025 3:19 PM EDT Flu vaccine need Psoriasis Skin lesion Annual physical exam Coronary artery disease involving [place] coronary artery of [place] heart without angina pectoris Memory disturbance Impaired mobility and ADLs Debility Iron deficiency anemia, unspecified iron deficiency anemia type COMPREHENSIVE METABOLIC PANEL Routine 02/23/2025 3:19 PM EDT Flu vaccine need Psoriasis Skin lesion Annual physical exam Coronary artery disease involving [place] coronary artery of [place] heart without angina pectoris Memory disturbance Impaired mobility and ADLs Debility Iron deficiency anemia, unspecified iron deficiency anemia type documented in this encounter Results * VITAMIN D 25 HYDROXY (02/23/2025 3:19 PM EDT) Vit D 25 OH 38.2 30.0 - 150.0 ng/mL 02/23/2025 9:16 PM EDT [facility] [employer] Comment: Preferred: >= 30 ng/mL Insufficient: 21-29 ng/mL Deficient <= 20 ng/mL Possible Toxicity: >150 ng/mL Samples should not be taken from patients receiving therapy with high biotin doses (i.e. > 5 mg/day) until at least 8 hours following the last biotin administration. Blood VENOUS BLOOD / Unknown Venipuncture / Unknown 02/23/2025 3:19 PM EDT 02/23/2025 3:19 PM EDT us Gloria Whitmore MD CHEMISTRY ORDERABLES Final Res ult Performing Organization Address [facility] de Phone Number [facility] [employer] [address] [facility] , [place] [address] * IRON+TIBC (02/23/2025 3:19 PM EDT) Pathologist [facility] [place] Iron 88 50 - 170 mcg/dL 02/23/2025 8:36 PM EDT [facility] [employer] Transferrin 221 200 - 360 mg/dL 02/23/2025 8:36 PM EDT [facility] Transferrin Saturation 28 20 - 50 % 02/23/2025 8:36 PM EDT [facility] TIBC 309 250 - 400 mcg/dL 02/23/2025 8:36 PM EDT [facility] Blood VENOUS BLOOD / Unknown Venipuncture / Unknown 02/23/2025 3:19 PM EDT 02/23/2025 3:19 PM EDT us Gloria Whitmore MD CHEMISTRY ORDERABLES Final Res ult Performing Organization Address City/[facility]/ZIP Co de Phone Number [facility] [address] [facility] , [place] [address] * FERRITIN (02/23/2025 3:19 PM EDT) Ferritin 358 30 - 400 ng/mL 02/23/2025 8:36 PM EDT [email or web address] Blood VENOUS BLOOD / Unknown Venipuncture / Unknown 02/23/2025 3:19 PM EDT 02/23/2025 3:19 PM EDT Narrative [email or web address] - 02/23/2025 8:36 PM EDT Ingestion of mine doses of biotin (>5 mg/day) taken within 8 hours of drawing blood sample can interfere with this immunoassay test. us Gloria Whitmore MD CHEMISTRY ORDERABLES Final Res ult Performing Organization Address [facility] Phone Number [email or web address] [address] [facility] , [place] [address] * VITAMIN B12/ FOLIC ACID (02/23/2025 3:19 PM EDT) Pathologist [facility] [place] Vitamin B12 728 232 - 1,245 pg/mL 02/23/2025 9:16 PM EDT [facility] Folate >16.00 >=4.50 ng/mL 02/23/2025 9:16 PM EDT [facility] Blood VENOUS BLOOD / Unknown Venipuncture / Unknown 02/23/2025 3:19 PM EDT 02/23/2025 3:19 PM EDT Narrative [facility] - 02/23/2025 9:16 PM EDT Ingestion of mine doses of biotin (>5 mg/day) taken within 8 hours of drawing blood sample can interfere with this immunoassay test. us Gloria Whitmore MD CHEMISTRY ORDERABLES Final Res ult Performing Organization Address [facility] Co de Phone Number [facility] [address] [facility] , [place] [address] * TSH REFLEX TO FT4 (02/23/2025 3:19 PM EDT) TSH Reflex 2.300 0.270 - 4.200 mcIU/mL 02/23/2025 8:36 PM EDT [email or web address] Blood VENOUS BLOOD / Unknown Venipuncture / Unknown 02/23/2025 3:19 PM EDT 02/23/2025 3:19 PM EDT Narrative [facility] - 02/23/2025 8:36 PM EDT Ingestion of mine doses of biotin (>5 mg/day) taken within 8 hours of drawing blood sample can interfere with this immunoassay test. us Gloria Whitmore MD CHEMISTRY ORDERABLES Final Res ult [facility] [address] [facility] , [address] [place] [id number] * (ABNORMAL) LIPID SCREEN (02/23/2025 3:19 PM EDT) Cholesterol 104 <200 mg/dL 02/23/2025 8:36 PM EDT [email or web address] Comment: < 200 Desirable 200 - 239 Borderline High >= 240 High Triglyceride 88 <150 mg/dL 02/23/2025 8:36 PM EDT [email or web address] Comment: < 150 Normal 150 - 199 Borderline High 200 - 499 High >= 500 Very High HDL 33(L) >=40 mg/dL 02/23/2025 8:36 PM EDT [facility] Comment: > 60 Optimal 40 - 60 Acceptable < 40 Low LDL Calculated 54 <100 mg/dL 02/23/2025 8:36 PM EDT [facility] Comment: < 100 Optimal 100 - 129 Near or above optimal 130 - 159 Borderline High 160 - 189 High >= 190 Very High The National Institutes of Health (NIH) equation is used for all lipid panels that report calculated LDL (LDL-C). Non-HDL-C Calculated 71 <=129 mg/dL 02/23/2025 8:36 PM EDT [email or web address] Comment: <130 Desirable 130-159 Above Desirable 160-189 Borderline High 190-219 High >= 220 Very High Fasting Specimen? Yes None 025 8:36 PM EDT [facility] [employer] Blood VENOUS BLOOD / Unknown Venipuncture / Unknown 02/23/2025 3:19 PM EDT 02/23/2025 3:19 PM EDT us Gloria Whitmore MD CHEMISTRY ORDERABLES Final Res ult Performing Organization Address [facility] de Phone Number [facility], [address] , [place] [address] * (ABNORMAL) HEMOGLOBIN A1C (02/23/2025 3:19 PM EDT) Hgb A1C 5.9(H) 4.2 - 5.6 % 02/23/2025 8:09 PM EDT [facility] [employer] Est. Avg Glucose 123 mg/dL 02/23/2025 8:09 PM EDT [facility] [employer] Blood VENOUS BLOOD / Unknown Venipuncture / Unknown 02/23/2025 3:19 PM EDT 02/23/2025 3:19 PM EDT Narrative [email or web address] - 02/23/2025 8:09 PM EDT REFERENCE RANGE: Normal: 4.0-5.6% Pre-diabetes: 5.7-6.4% Provisional diagnosis of diabetes: >6.4% Hgb F>10% and anything which shortens red cell survival, such as hemolytic anemia, or unstable hemoglobin variants such as HbSS, HbSC, or HbCC, will lower the HbA1c value associated with a given level of glycemic control. us Gloria Whitmore MD CHEMISTRY ORDERABLES Final Res ult Performing Organization Address [facility] Co de Phone Number [facility], [address] , [place] [address] * COMPREHENSIVE METABOLIC PANEL (02/23/2025 3:19 PM EDT) Sodium 138 136 - 145 mmol/L 02/23/2025 8:36 PM EDT [facility] [employer] Potassium 4.5 3.5 - 5.0 mmol/L 02/23/2025 8:36 PM EDT [facility] Chloride 102 98 - 107 mmol/L 02/23/2025 8:36 PM EDT [facility] Total CO2 24 22 - 29 mmol/L 02/23/2025 8:36 PM EDT [facility] Anion Gap 12 7 - 16 mmol/L 02/23/2025 8:36 PM EDT [facility] Calcium 10.1 8.8 - 10.4 mg/dL 02/23/2025 8:36 PM EDT [facility] Glucose Lvl 86 70 - 99 mg/dL 02/23/2025 8:36 PM EDT [facility] BUN 17 8 - 23 mg/dL 02/23/2025 8:36 PM EDT [facility] Creatinine 0.87 0.67 - 1.30 mg/dL 02/23/2025 8:36 PM EDT [facility] Albumin 4.3 3.2 - 4.6 gm/dL 02/23/2025 8:36 PM EDT [facility] Total Protein 7.7 6.4 - 8.3 gm/dL 02/23/2025 8:36 PM EDT [facility] Bili Total 0.7 0.2 - 1.4 mg/dL 02/23/2025 8:36 PM EDT [facility] ALT 24 <=41 U/L 02/23/2025 8:36 PM EDT [facility] AST 27 <=40 U/L 02/23/2025 8:36 PM EDT [facility] Alk Phos 79 40 - 129 U/L 02/23/2025 8:36 PM EDT [facility] eGFR (CKD-EPIcr 2020) 84 >=60 mL/min/1.7 3 m2 02/23/2025 8:36 PM EDT [facility] Comment:Estimated GFR was ca lculated using the CKD-EPIcr (2020) equation refit without race. The equation is recommended by the National Kidney Foundation - [place] [employer] Nephrology Task Force. Blood VENOUS BLOOD / Unknown Venipuncture / Unknown 02/23/2025 3:19 PM EDT 02/23/2025 3:19 PM EDT us Gloria Whitmore MD CHEMISTRY ORDERABLES Final Res ult [facility] [address] [facility] , [place] [address] * (ABNORMAL) CBC WITH DIFF (02/23/2025 3:19 PM EDT) WBC 6.7 3.7 - 10.3 x10(3)/mcL 02/23/2025 7:43 PM EDT [facility] RBC 4.55(L) 4.60 - 6.10 x10(6)/mcL 02/23/2025 7:43 PM EDT [facility] Hgb 13.8 13.7 - 17.5 g/dL 02/23/2025 7:43 PM EDT [facility] Hct 43.3 40.0 - 51.0 % 02/23/2025 7:43 PM EDT [facility] MCV 95.2 80.0 - 100.0 fL 02/23/2025 7:43 PM EDT [facility] MCH 30.3 26.0 - 34.0 pg 02/23/2025 7:43 PM EDT [facility] MCHC 31.9 30.7 - 35.5 g/dL 02/23/2025 7:43 PM EDT [facility] RDW 13.6 <=14.9 % 02/23/2025 7:43 PM EDT [facility] Platelet 169 155 - 369 x10(3)/mcL 02/23/2025 7:43 PM EDT [facility] MPV 11.0 8.8 - 12.5 fL 02/23/2025 7:43 PM EDT [facility] Neut Percent 54.8 % 02/23/2025 7:43 PM EDT [facility] Comment:Neutrophils equals s egs plus bands Imm Gran% 0.1 % 02/23/2025 7:43 PM EDT [facility] Comment:Automated count of m etamyelocytes, myelocytes and promyelocytes. Lymph Percent 28.1 % 02/23/2025 7:43 PM EDT [facility] Cotton Percent 11.8 % 02/23/2025 7:43 PM EDT [facility] Eos Percent 4.5 % 02/23/2025 7:43 PM EDT [facility] Baso Percent 0.7 % 02/23/2025 7:43 PM EDT [facility] Neut # 3.7 1.6 - 6.1 x10(3)/[facility] 02/23/2025 7:43 PM EDT [facility] Comment:Neutrophils equals s egs plus bands IMMGRAN# 0.0 0.0 - 0.1 x10(3)/mcL 02/23/2025 7:43 PM EDT [facility] Comment:Automated count of m etamyelocytes, myelocytes and promyelocytes. An absolute IG <0.1 is reported as 0.0. Lymph # 1.9 1.2 - 3.9 x10(3)/mcL 02/23/2025 7:43 PM EDT [facility] Cotton # 0.8 0.3 - 0.9 x10(3)/[facility] 02/23/2025 7:43 PM EDT [facility] Eos# 0.3 0.0 - 0.5 x10(3)/[facility] 02/23/2025 7:43 PM EDT [facility] Baso # 0.1 0.0 - 0.1 x10(3)/[facility] 02/23/2025 7:43 PM EDT [facility] Blood VENOUS BLOOD / Unknown Venipuncture / Unknown 02/23/2025 3:19 PM EDT 02/23/2025 3:19 PM EDT us Gloria Whitmore MD HEMATOLOGY ORDERABLES Final Re sult [facility] [address] [facility] , [address] [place] [address] documented in this encounter Visit Diagnoses Diagnosis Annual physical exam- Primary Routine general medical examination at a health care facility Flu vaccine need Need for prophylactic vaccination and inoculation against influenza Psoriasis Other psoriasis Skin lesion Unspecified disorder of skin and subcutaneous tissue Coronary artery disease involving [place] coronary artery of [place] heart without angina pectoris Memory disturbance Memory loss Impaired mobility and ADLs Mechanical problems with limbs Debility Debility, unspecified Iron deficiency anemia, unspecified iron deficiency anemia type Vitamin D deficiency Unspecified vitamin D deficiency documented in this encounter Orders Immunization/Injection Count Last Ordered Date First Ordered Date FLUZONE HIGH DOSE 1 02/23/2025 documented in this encounter Additional Health Concerns Assessment Noted Time A fall risk assessment has been complete d for the patient 02/23/2025 1:49 PM EDT documented as of this encounter Care Teams Gun Fertilizer Relationship Specialty Start Date End Date Gloria Whitmore MD [address] [place] [address] PCP - General Family Medicine 08/07/17 Hui Slater MD [address] [place] [id number] Medical Oncologist Internal Medicine-Hematology and Oncology 11/10/24 documented as of this encounter
--- OUTSIDE RECORDS SUMMARY | 2025-03-10 17:24 | XMS_ITS | Encounter Summary ---
Author Organization [place] [address] Care Team Providers Care Apartment Hotel Manager Name Role Phone Gloria Whitmore MD Primary Care Provider Hui Slater MD Unavailable [phone] Encounter Details Date Type Department Care Team (Latest Contact Info) Description 01/13/2025 Results Follow-Up Cancer Care Medical Oncology [place], [place] [id number] Sherrill Stroud, MATTHEW [address] [place] [address] [phone] CBC WITH DIFF, COMPREHENSIVE METABOLIC PANEL, FERRITIN, Additional followed-up results: 3 Social History Tobacco Use Types Packs/Day Years Used Date Smoking Tobacco: Former Cigarettes Q uit: 06/22/1976 Passive Smoke Exposure: Past Smokeless Tobacco: Never Alcohol Use Standard Drinks/Week Comments No 0 (1 standard drink = 0.6 oz pur e alcohol) [facility] Utilities Answer Date Recorded In the [...] Date Recorded PHQ-2 Total Score 0 06/30/2024 [facility] - Occupational Stress [...] money to get more. Never true 05/20/2024 [facility] IP Transportation Answer D ate Recorded [...] Author No 06/30/2024 1:22 PM Ebony Holt ALLI documented as of this encounter Mental Status * Because of a physical, mental or emotional condition, does this person have serious difficulty concentrating, remembering or making decisions? Answer Entry Date Author No 06/30/2024 1:22 PM Ebony Holt RMA documented in this encounter Ordered Prescriptions Prescription Sig Dispense Quantity Refills Last Filled Start Date End Date cyanocobalamin 1,000 mcg Oral TabletIndications:B 12 deficiency Take 1 Tablet by mouth three times a week. 36 Tablet 1 01/14/2025 documented in this encounter Miscellaneous Notes * Telephone Encounter - Destiny Jackson MA - 01/14/2025 9:24 AM EDT I called son, Jean-Pierre listed on patients HIPAA. Jean-Pierre wanted to go ahead and schedule the infusions. Jean-Pierre scheduled patient for #1,2,3 venofer. Aleksey asked how much the infusions would cost. Transferred call to financial counseling. * Telephone Encounter - Sharla Vazquez RN - 01/13/2025 4:33 PM EDT Called patients daughter Hina, she said she will discuss with her brothers and reply back to [employer] message on which route they'd like to proceed. * Telephone Encounter - Sharla Vazquez RN - 01/13/2025 4:33 PM EDT ----- Message from Sherrill Stroud APRN sent at 01/13/2025 3:58 PM EDT ----- My chart message sent. Could either receive additional IV iron replacement (3 doses) or monitor. Can restart if not taking oral B12 replacement (1 tablet - 1,000 mcg on Mondays, Wednesdays and Fridays). Please determine preferences. I order the iron and sent the B12 to the pharmacy. If does not want the IV iron - recheck in 8 weeks ----- Message ----- From: Lab, Background User Sent: 01/11/2025 2:18 PM EDT To: Sherrill Stroud APRN documented in this encounter Plan of Treatment Upcoming Encounters Date Type Department Care Team (Late st Contact Info) Description 03/23/2025 1:00 PM EDT Appointment [place] [address] [place] [address] 03/23/2025 1:30 PM EDT [address]ment [address] [place] [address] Sherrill Stroud APRN [address] [place] [address] [place] [address] documented as of this encounter Goals [...] as of this encounter Visit Diagnoses Diagnosis B12 deficiency- Primary Other B-complex deficiencies documented in this encounter Discontinued Medications Medication Sig Discontinue Reason Start Date End Da te cyanocobalamin, vitamin B-12, (VITAMIN B-12 ORAL) Take 1 Tab by mouth daily. Dose adjustment 01/13/2025 documented as of this encounter Additional Health Concerns Assessment Noted Time A fall risk assessment has been complete d for the patient 01/22/2024 4:21 PM EDT documented as of this encounter Care Teams Apartment Hotel Manager Relationship Specialty Start Date End Date Gloria Whitmore MD [address] [place] [address] PCP - General Family Medicine 08/07/17 Hui Slater MD [address] [place] [address] Medical Oncologist Internal Medicine-Hematology and Oncology 11/10/24 documented as of this encounter
--- OUTSIDE RECORDS SUMMARY | 2025-03-10 17:24 | XMS_ITS ---
Author Organization [facility] Address [address] [place] [address] Phone Care Team Providers Care Meteorological Engineer Name Role Phone Gloria Whitmore MD Primary Care Provider [phone] Hui Slater MD Unavailable [phone] Active Problems Patient Care Coordination No te Formatting of this note migh t be different from the original. HCC audit completed by Maggie Merino RN on 04/30/2022. Please fax lab results to Dr. Cota [phone] Problem Noted Date Diagnosed Date Impaired mobility and ADLs 10/06/2024 Debility 10/06/2024 Memory disturbance 10/06/2024 Iron deficiency anemia due to chronic blood loss 07/21/2024 Iron malabsorption 07/21/2024 Age-related osteoporosis with current pathologic al fracture 05/20/2024 Assessment & Plan (05/24/2024 1:04 PM EST): -- Check for other etiologies Assessment & Plan (05/23/2024 9:00 AM EST): -- Check for other etiologies Assessment & Plan (05/22/2024 9:11 AM EST): -- Check for other etiologies Assessment & Plan (05/21/2024 10:06 AM EST): -- Check for other etiologies Assessment & Plan (05/20/2024 9:44 AM EST): -- Check for other etiologies Assessment & Plan (05/20/2024 3:03 AM EST): -- Check for other etiologies Microcytic anemia 05/20/2024 Assessment & Plan (05/24/2024 12:49 PM EST): -- H/H 8.6/28.9 -iron/ anemia profile reviewed; pt is already on PO Fe replacement; 1 dose of IV Fe on 05/21 Assessment & Plan (05/23/2024 2:21 PM EST): -- H/H 7.5/24.7 -iron/ anemia profile reviewed; pt is already on PO Fe replacement; 1 dose of IV Fe on 05/21 Assessment & Plan (05/22/2024 1:43 PM EST): -- H/H 7.3/24.1 -iron/ anemia profile reviewed; pt is already on PO Fe replacement; 1 dose of IV Fe on 05/21 Assessment & Plan (05/21/2024 10:06 AM EST): -- H/H 7.3/24.1 -iron/ anemia profile reviewed; pt is already on PO Fe replacement; will give 1 dose of IV Fe today Assessment & Plan (05/20/2024 9:44 AM EST): -- History of anemia of chronic disease, possible some degree of iron deficiency, and history of blood loss anemia related to his hip fracture and surgery in December 2023 -- Hemoglobin was 9.3 in 02/24/2024 >> 8.9 and admission Assessment & Plan (05/20/2024 3:03 AM EST): -- History of anemia of chronic disease, possible some degree of iron deficiency, and history of blood loss anemia related to his hip fracture and surgery in December 2023 -- Hemoglobin was 9.3 in 02/24/2024 >> 8.9 and admission Closed fracture of right hip, initial encounter 05/19/2024 Assessment & Plan (05/24/2024 1:04 PM EST): -- X-ray right hip:Acute right femoral neck fracture -ORTHO following was following--> pt is s/p RIGHT HIP ANNA ARTHROPLASTY-ANTERIOR 05/20 -pain well controlled -pain control and DVT proph per ORTHO -PT eval--> moderate frequency, moderate intensity Assessment & Plan (05/23/2024 9:00 AM EST): -- X-ray right hip:Acute right femoral neck fracture -ORTHO following was following--> pt is s/p RIGHT HIP ANNA ARTHROPLASTY-ANTERIOR 05/20 -pain well controlled -pain control and DVT proph per ORTHO -PT eval--> moderate frequency, moderate intensity Assessment & Plan (05/22/2024 1:43 PM EST): -- X-ray right hip:Acute right femoral neck fracture -ORTHO following was following--> pt is s/p RIGHT HIP ANNA ARTHROPLASTY-ANTERIOR 05/20 -pain well controlled -pain control and DVT proph per ORTHO -PT eval--> moderate frequency, moderate intensity Assessment & Plan (05/21/2024 10:06 AM EST): -- X-ray right hip:Acute right femoral neck fracture -ORTHO following was following--> pt is s/p RIGHT HIP ANNA ARTHROPLASTY-ANTERIOR 05/20 -pain well controlled -pain control and DVT proph per ORTHO -PT eval Assessment & Plan (05/20/2024 9:44 AM EST): -- X-ray right hip:Acute right femoral neck fracture -ORTHO following--> OR today -pain control and DVT proph per ORTHO -will need PT post op Assessment & Plan (05/20/2024 3:03 AM EST): -- X-ray right hip, personally reviewed: Acute right femoral neck fracture Primary hypertension 02/20/2024 Assessment & Plan (05/24/2024 1:04 PM EST): -BP 131/72 -- Verapamil ETL DATABASE DEVELOPER Assessment & Plan (05/23/2024 2:21 PM EST): -BP 131/72 -- Verapamil ETL DATABASE DEVELOPER Assessment & Plan (05/22/2024 1:43 PM EST): -BP 109/55 -- Verapamil ETL DATABASE DEVELOPER Assessment & Plan (05/21/2024 10:06 AM EST): -BP 109/60 -- Verapamil ETL DATABASE DEVELOPER Assessment & Plan (05/20/2024 9:44 AM EST): -BP 145/68 -- Verapamil ETL DATABASE DEVELOPER Assessment & Plan (05/20/2024 3:03 AM EST): -- Verapamil ETL DATABASE DEVELOPER S/P coronary artery stent placement 02/20/2024 Assessment & Plan (05/24/2024 12:49 PM EST): Date of Admission:05/19/2024 Chief Complaint:fall at home DVT Prophylaxis: per ORTHO Diet: cardiac Code Status: FULL PT/OT Eval Status: moderate frequency, moderate intensity Dispo:Today to [place] Assessment & Plan (05/23/2024 9:00 AM EST): Date of Admission:05/19/2024 Chief Complaint:fall at home DVT Prophylaxis: per ORTHO Diet: cardiac Code Status: FULL PT/OT Eval Status: PT order in Dispo:TBD; likely to [place] Assessment & Plan (05/22/2024 1:43 PM EST): Date of Admission:05/19/2024 Chief Complaint:fall at home DVT Prophylaxis: per ORTHO Diet: cardiac Code Status: FULL PT/OT Eval Status: PT order in Dispo:TBD; likely to [place] Assessment & Plan (05/21/2024 10:06 AM EST): Date of Admission:05/19/2024 Chief Complaint:fall at home DVT Prophylaxis: per ORTHO Diet: NPO at this time Code Status: FULL PT/OT Eval Status: PT order in Dispo:TBD; likely to [place] [facility] (acute blood loss anemia) 01/24/2024 Closed fracture of left hip, initial encounter 0 01/22/2024 Closed left hip fracture, initial encounter 12/25 Paroxysmal atrial fibrillation 11/30/2019 Assessment & Plan (05/24/2024 12:49 PM EST): -rate controlled HR in 60s this am 05/24 -- Verapamil, Eliquis ETL DATABASE DEVELOPER Assessment & Plan (05/23/2024 2:21 PM EST): -rate controlled HR in 70s this am 05/23 -- Verapamil, Eliquis ETL DATABASE DEVELOPER Assessment & Plan (05/22/2024 1:43 PM EST): -rate controlled HR in 60s this am 05/22 -- Verapamil, Eliquis ETL DATABASE DEVELOPER Assessment & Plan (05/21/2024 10:06 AM EST): -rate controlled HR in 60s this am 05/21 -- Verapamil, Eliquis ETL DATABASE DEVELOPER Assessment & Plan (05/20/2024 9:44 AM EST): -rate controlled HR in 60s this am -- Verapamil, Eliquis ETL DATABASE DEVELOPER Assessment & Plan (05/20/2024 3:03 AM EST): -- Verapamil, Eliquis ETL DATABASE DEVELOPER Old myocardial infarction 06/22/2018 Overview (06/22/2018): IN from 2- History of prostate cancer 06/22/2018 Syncope 02/19/2012 Paroxysmal ventricular tachycardia 02/19/2012 Assessment & Plan (05/24/2024 12:49 PM EST): -stable today 05/24 Assessment & Plan (05/23/2024 2:21 PM EST): -stable today 05/23 Assessment & Plan (05/22/2024 1:43 PM EST): -stable today 05/22 Assessment & Plan (05/21/2024 10:06 AM EST): -stable today 05/21 Assessment & Plan (05/20/2024 9:44 AM EST): -stable today Bradycardia 02/19/2012 LFT elevation 02/06/2011 Metabolic syndrome 02/06/2011 PVC (premature ventricular contraction) 07/04/19 Colon polyp 07/04/2010 Dyslipidemia 11/23/2009 Assessment & Plan (05/24/2024 1:04 PM EST): -lipid profile reviewed -- Lipitor, Zetia ETL DATABASE DEVELOPER Assessment & Plan (05/23/2024 9:00 AM EST): -lipid profile reviewed -- Lipitor, Zetia ETL DATABASE DEVELOPER Assessment & Plan (05/22/2024 9:11 AM EST): -lipid profile reviewed -- Lipitor, Zetia ETL DATABASE DEVELOPER Assessment & Plan (05/21/2024 10:06 AM EST): -lipid profile reviewed -- Lipitor, Zetia ETL DATABASE DEVELOPER Assessment & Plan (05/20/2024 9:44 AM EST): -lipid profile reviewed -- Lipitor, Zetia ETL DATABASE DEVELOPER Assessment & Plan (05/20/2024 3:03 AM EST): -- Lipitor, Zetia ETL DATABASE DEVELOPER CAD (coronary artery disease ) / History of IN 2010 / S/P coronary artery stent placement 11/23/2009 Assessment & Plan (07/06/2024 9:09 AM EST): Orders: CBC WITH DIFF; Future COMPREHENSIVE METABOLIC PANEL; Future HEMOGLOBIN A1C; Future TSH REFLEX; Future VITAMIN B12/ FOLIC ACID; Future IRON+TIBC; Future MAGNESIUM LEVEL; Future rosuvastatin (CRESTOR) 20 mg Oral Tablet; Take 1 Tablet by mouth nightly. Assessment & Plan (05/24/2024 12:49 PM EST): -- cardiac cath 10/2019: Coronary angiography today showed mild disease in the dominant RCA and left circumflex system with intermediate, FFR negative disease in the mid LAD and 2nd diagonal branch. -- ASA, Lipitor ETL DATABASE DEVELOPER -- Chest x-ray:No acute findings -- no CP today 05/24 Assessment & Plan (05/23/2024 2:21 PM EST): -- cardiac cath 10/2019: Coronary angiography today showed mild disease in the dominant RCA and left circumflex system with intermediate, FFR negative disease in the mid LAD and 2nd diagonal branch. -- ASA, Lipitor ETL DATABASE DEVELOPER -- Chest x-ray:No acute findings -- no CP today 05/23 Assessment & Plan (05/22/2024 1:43 PM EST): -- cardiac cath 10/2019: Coronary angiography today showed mild disease in the dominant RCA and left circumflex system with intermediate, FFR negative disease in the mid LAD and 2nd diagonal branch. -- ASA, Lipitor ETL DATABASE DEVELOPER -- Chest x-ray:No acute findings -- no CP today 05/22 Assessment & Plan (05/21/2024 10:06 AM EST): -- cardiac cath 10/2019: Coronary angiography today showed mild disease in the dominant RCA and left circumflex system with intermediate, FFR negative disease in the mid LAD and 2nd diagonal branch. -- ASA, Lipitor ETL DATABASE DEVELOPER -- Chest x-ray:No acute findings -- no CP today 05/21 Assessment & Plan (05/20/2024 9:44 AM EST): -- cardiac cath 10/2019: Coronary angiography today showed mild disease in the dominant RCA and left circumflex system with intermediate, FFR negative disease in the mid LAD and 2nd diagonal branch. -- ASA, Lipitor ETL DATABASE DEVELOPER -- Chest x-ray:No acute findings -- no CP today Assessment & Plan (05/20/2024 3:03 AM EST): -- cardiac cath 10/2019: Coronary angiography today showed mild disease in the dominant RCA and left circumflex system with intermediate, FFR negative disease in the mid LAD and 2nd diagonal branch. -- ASA, Lipitor ETL DATABASE DEVELOPER -- Chest x-ray, personally reviewed: No acute findings -- no CP Assessment & Plan (02/26/2024 1:18 PM EDT): History of IN, tolerating statins and aspirin well, discussed the importance of continuing this medication. GERD (gastroesophageal reflux disease) 0 Current Treatment and Therapy Plans No current plan information found. Past Treatment and Therapy Plans Resolved Problems Problem Noted Date Diagnosed Date Resolved Date Fracture 01/22/2024 05/20/2024 Prostate CA 07/04/2010 06/22/2018 IN (myocardial infarction) 07/04/2010 0 06/22/2018 Overview (06/22/2018): Greater than 4 weeks 2-9-2010. Added Old IN
--- OUTSIDE RECORDS SUMMARY | 2025-03-10 17:24 | XMS_ITS | Encounter Summary ---
Author Organization [place] [address] Care Team Providers Care Drainage Engineer Name Role Phone Gloria Whitmore MD Primary Care Provider [phone] Hui Slater MD Unavailable Reason for Visit * Reason Onset Date Comments Care Transition 03/07/2025 CM- Telephonic Outreach 03/07/2025 CM-Resource Coordination 03/07/2025 Contact ed [facility]ators for palliative care Encounter Details Date Type Department Care Team (Late st Contact Info) Description 03/07/2025 Patient Outreach [facility] [address] [place] [address] Obdulia Vanessa RN Care Transition; CM- Telephonic Outreach; CM-Resource Coordination (Contacted [facility] for palliative care ) Social History Tobacco Use Types Packs/Day Years Used Date Smoking Tobacco: Former Cigarettes Q uit: 06/22/1976 Passive Smoke Exposure: Past Smokeless Tobacco: Never Alcohol Use Standard Drinks/Week Comments No 0 (1 standard drink = 0.6 oz pur e alcohol) [facility] Utilities Answer Date Recorded In the past [...] Date Recorded PHQ-2 Total Score 0 06/30/2024 [facility] - Occupational Stress [...] money to get more. Never true 05/20/2024 [facility] IP Transportation Answer D ate Recorded In [...] Ebony Holt RMA documented in this encounter Progress Notes * Obdulia Vanessa RN - 03/08/2025 9:39 AM EDT Late Entry- Cutter Machine Tender received update from [facility] that they do not offer palliative care in the area where patient lives. Daughter Hina was advised of this information. * Obdulia Vanessa RN - 03/07/2025 9:18 AM EDT Contacted [facility] to follow up on status of palliative care referral being received. Spoke with Niki who reports referral was received. transaction coordinator inquired when family would becontacted. Spoke with Kymberly who reports the referral was received on Friday03/04/25 and typically takes 72 hours before contact made. Nurse will need to review information received and they also have to verify they can service patient as they do not serve all of [facility] at this time. Kymberly has been given care coordinators direct contact information and emergency care tech requested a follow up call when more information available about if patient can be accepted. documented in this encounter Plan of Treatment Upcoming Encounters Date Type Department Care Team (Damaris st Contact Info) Description 03/23/2025 1:00 PM EDT Appointment [address] [place] [address] 03/23/2025 1:30 PM EDT Appointment [address] [place] [address] Sherrill Stroud APRN [address] [place] [address] documented as of this encounter Goals [...] documented as of this encounter Visit Diagnoses Not on filedocumented in this encounter Additional Health Concerns Assessment Noted Time A fall risk assessment has been complete d for the patient 02/23/2025 1:49 PM EDT documented as of this encounter Care Teams Drainage Engineer Relationship Specialty Start Date End Date Gloria Whitmore MD [address] [place] [address] PCP - General Family Medicine 08/07/17 Hui Slater MD [address] [place] [address] Medical Oncologist Internal Medicine-Hematology and Oncology 11/10/24 documented as of this encounter
--- OUTSIDE RECORDS SUMMARY | 2025-03-10 17:24 | XMS_ITS | Encounter Summary ---
Author Organization [facility] Address [facility] [place] [address] Care Team Providers Care Regulatory Assistant Name Role Phone Romaine Laird MD Primary Care Provider Unavail able Yojana Craig Unavailable [phone] Bernardo Cota MD Unavailable [phone] Carlos Aguero MD Unavailable Unavailable Richard Connor Unavailable Reason for Visit * Reason Onset Date Comments Scheduling 02/17/2025 Encounter Details Date Type Department Care Team (Late st Contact Info) Description 02/17/2025 Telephone [facility] Physicians - Heart & Vascular, [address] Medical Office Building [address] [place] [phone] Bernardo Cota MD [address] [place] [phone] Scheduling Social History Tobacco Use Types Packs/Day Years Used Date Smoking Tobacco: Former Smokeless Tobacco: Never Alcohol Use Standard Drinks/Week Comments No 0 (1 standard drink = 0.6 oz pur e alcohol) Sex and Gender Information Value Date Recorded Sex Assigned at Not on file Legal Sex Male 5:19 PM EST Gender Identity Not on file Sexual Orientation Not on file documented as of this encounter Miscellaneous Notes * Telephone Encounter - Nida Diaz - 02/17/2025 11:27 AM EDT This real estate underwriter attempted a phone call to Radhames Monroy to reschedule their F/U visit with JULIA on 03/10/2025. Reached voicemail of contact number in the chart of Radhames Monroy and offered appt times on AVAILABLE WITH PAULINO CRAIG. Requested return call to the office, contact number provided When family of patient returns call to the office, please schedule an appt on the date(s) offered above, or any other open appt slot that meets the patients needs documented in this encounter Plan of Treatment Upcoming Encounters Date Type Department Care Team (Late st Contact Info) Description 03/24/2025 1:00 PM EDT Appointment [facility] Physicians - Heart & Vascular, [address] Medical Office [facility] [address] [place] [phone] Yojana Craig PA [address] [place] [phone] documented as of this encounter Visit Diagnoses Not on filedocumented in this encounter Care Teams Regulatory Assistant Relationship Specialty Start Date End Date Romaine Laird MD PCP - General Family Medicine 12/02/18 Yojana Craig PA [address] [place] [address] [place] [address] Cardiology 07/05/20 Bernardo oCta MD [address] [place] [address] Interventional Cardiology 07/06/20 Carlos Aguero MD Interventional Cardiology 06/02/22 Richard Connor PA [address] [place] [address] Physician Chief Wheelage Clerk Physician Chief Wheelage Clerk 08/07/22 documented as of this encounter
--- OUTSIDE RECORDS SUMMARY | 2025-03-10 17:24 | XMS_ITS | Encounter Summary ---
Author Organization [place] [address] Care Team Providers Care Court Bailiff Or Sheriff Name Role Phone Gloria Whitmore MD Primary Care Provider [phone] Hui Slater MD Unavailable [phone] Mindy Maharaj MD Unavailable [phone] Encounter Details Date Type Department Care Team (Late st Contact Info) Description 03/02/2025 Results Follow-Up [facility] [address] [place] [address] Gloria Whitmore MD [address] [place] [address] CBC WITH DIFF, COMPREHENSIVE METABOLIC PANEL, HEMOGLOBIN A1C, Additional followed-up results: 6 Social History Tobacco Use Types Packs/Day Years Used Date Smoking Tobacco: Former Cigarettes Q uit: 06/22/1976 Passive Smoke Exposure: Past Smokeless Tobacco: Never Alcohol Use Standard Drinks/Week Comments No 0 (1 standard drink = 0.6 oz pur e alcohol) [facility] Utilities Answer Date Recorded In the [...] Date Recorded PHQ-2 Total Score 0 06/30/2024 [facility] [place] [facility] - Occupational Stress [...] money to get more. Never true 05/20/2024 [facility] IP Transportation Answer D ate Recorded In [...] Ebony Holt RMA documented in this encounter Plan of Treatment Upcoming Encounters Date Type Department Care Team (Late st Contact Info) Description 03/23/2025 1:00 PM EDT [address]ointment [address] [place] [address] 03/23/2025 1:30 PM EDT [address]ointment [address] [place] [address] Sherrill Stroud APRN [address] [place] [id number] documented as of this encounter Goals [...] documented as of this encounter Care Teams Court Bailiff Or Sheriff Relationship Specialty Start Date End Date Gloria Whitmore MD [address] [place] [address] PCP - General Family Medicine 08/07/17 Mindy Maharaj MD [address] [place] [address] PCP - Hospice Attending 03/01/25 Hui Slater MD [address] [place] [id number] Medical Oncologist Internal Medicine-Hematology and Oncology 11/10/24 documented as of this encounter
--- OUTSIDE RECORDS SUMMARY | 2025-03-10 17:24 | XMS_ITS | Encounter Summary ---
Author Organization [place] [address] Care Team Providers Care Titrator Name Role Phone Gloria Whitmore MD Primary Care Provider [phone] Hui Slater MD Unavailable [phone] Reason for Visit * Reason Onset Date Comments Relaying Information 03/07/2025 Hospice car e Encounter Details Date Type Department Care Team (Late st Contact Info) Description 03/07/2025 Telephone [facility] [address] [place] [address] Gloria Whitmore MD [address] [place] [address] Relaying Information (Hospice care ) Social History Tobacco Use Types Packs/Day Years Used Date Smoking Tobacco: Former Cigarettes Q uit: 06/22/1976 Passive Smoke Exposure: Past Smokeless Tobacco: Never Alcohol Use Standard Drinks/Week Comments No 0 (1 standard drink = 0.6 oz pur e alcohol) [facility] Utilities Answer Date Recorded In the past 12 months has [employer] electric, gas, oil, or water company threatened to shut off services in your home? No 05/20/2024 Overall Financial Resource Strain (CARDIA) Answe r Date Recorded How hard is it for you to pa y for the very basics like food, housing, medical care, and heating? Not very hard 05/20/2024 PHQ-2 Answer Date Recorded PHQ-2 Total Score 0 06/30/2024 [facility] - Occupational Stress Questionnaire Answer Date Recorded [...] money to get more. Never true 05/20/2024 [facility] IP Transportation Answer D ate Recorded [...] Ebony Holt RMA documented in this encounter Miscellaneous Notes * Telephone Encounter - Daren Lee RMA - 03/07/2025 3:49 PM EDT Verbal orders given for provider to follow for hospice. * Telephone Encounter - Emani Chavez - 03/07/2025 3:38 PM EDT Select the most appropriate reason for this telephone message: Relaying Information Relaying Information Who is Calling: Other [facility] Method of Communication:Phone call What information is the caller relaying: Will Dr Whitmore follow for hospice Further action needed: Yes Additional Information:N/A documented in this encounter Plan of Treatment Upcoming Encounters Date Type Department Care Team (Late st Contact Info) Description 03/23/2025 1:00 PM EDT Appointment [address] [place] [address] 03/23/2025 1:30 PM EDT Appointment [address] [place] [address] Sherrill Stroud, MATTHEW [address] [facility] [place] [address] documented as of this encounter Goals Goal [...] 7.0 Result Component 5.9( 3:19 PM EDT) No Kashif Askew MD LDL CALC < 130 Result Component 54(02/23/2025 3:19 PM EDT) No Kashif Askew MD documented as of this encounter Visit Diagnoses Not on filedocumented in this encounter Additional Health Concerns Assessment Noted Time A fall risk assessment has been complete d for the patient 02/23/2025 1:49 PM EDT documented as of this encounter Care Teams Titrator Relationship Specialty Start Date End Date Gloria Whitmore MD [address] [place] [address] PCP - General Family Medicine 08/07/17 Hui Slater MD [address] [place] [address] Medical Oncologist Internal Medicine-Hematology and Oncology 11/10/24 documented as of this encounter
--- OUTSIDE RECORDS SUMMARY | 2025-03-10 17:24 | XMS_ITS | Encounter Summary ---
Author Organization [facility] Address [address] [place] [address] Care Team Providers Care Inspector Elevators Name Role Phone Romaine Laird MD Primary Care Provider Unavail able Yojana Craig Unavailable [phone] Bernardo Cota MD Unavailable [phone] Carlos Aguero MD Unavailable Unavailable Richard Connor Unavailable Reason for Visit * Reason Onset Date Comments Scheduling 03/02/2024 Encounter Details Date Type Department Care Team (Late st Contact Info) Description 03/02/2024 Telephone [facility] Physicians - Heart & Vascular, [place] [id number] [place] [address] [address] [place] [address] Bernardo Cota MD [facility] [address] [place] [address] Scheduling Social History Tobacco Use Types Packs/Day [...] * Telephone Encounter - Nida Diaz - 03/02/2024 11:32 AM EDT Spoke with pt's daughter Hina and scheduled. * Telephone Encounter - Tangela Ace - 03/02/2024 10:58 AM EDT Pt's daughter Hina called to schedule an appt for Pt with Dr Cota. I tried to reach Nida.Please call Hina back at [phone] documented in this encounter Plan of Treatment Upcoming Encounters Date Type Department Care Team (Late st Contact Info) Description 03/24/2025 1:00 PM EDT Appointment [facility] Physicians - Heart & Vascular, [address] Medical Office Building [address] [place] [phone] Yojana Craig PA [address] [place] [address] [place] [address] documented as of this encounter Visit Diagnoses Not on filedocumented in this encounter Care Teams Inspector Elevators Relationship Specialty Start Date End Date Romaine Laird MD PCP - General Family Medicine 12/02/18 Yojana Craig PA [address] [place] [address] [place] [address] Cardiology 07/05/20 Bernardo Cota MD [address] [place] [address] Interventional Cardiology 07/06/20 Carlos Aguero MD Interventional Cardiology 06/02/22 Richard Connor PA [address] [place] [address] Physician Experimental Plastics Fabricator Physician Experimental Plastics Fabricator 08/07/22 documented as of this encounter
--- OUTSIDE RECORDS SUMMARY | 2025-03-10 17:24 | XMS_ITS | Clinical Summary ---
Author Organization [facility] Address [address] [place] [address] Care Team Providers Care Assistant Professor Of Psychology Name Role Phone Romaine Laird MD Primary Care Provider Unavail able Yojana Craig Unavailable [phone] Bernardo Cota MD Unavailable [phone] Carlos Aguero MD Unavailable Unavailable Richard Connor Unavailable Allergies No known active allergies Medications Coenzyme Q10 100 mg Capsule Take 100 mg by mouth 2 times daily. Active Magnesium 250 mg PO Tab Take 250 mg by mouth daily. Active MULTIVITAMIN PO Take by mouth daily. Active CHOLECALCIFEROL , VITAMIN D3, (VITAMIN D3 PO) Take by mouth daily. Active aspirin 81 mg tabletIndicatio ns:Acute chest pain Take 1 Tab (81 mg total) by mouth Pre-Procedure. 100 Tab 11/22/19 Active Additional Information Patient not taking.Reported on 03/31/2024 atorvastatin (LIPITOR) 80 mg Tablet Take 1 Tablet by mouth daily. 90 Tablet 3 03/31/20 24 Active ezetimibe (ZETIA) 10 mg Tablet Take 1 Tablet (10 mg) by mouth daily. 90 Tablet 3 03/31/20 24 Active verapamiL (CALAN-SR) 240 mg CR tablet Take 1 Tablet (240 mg) by mouth daily. 90 Tablet 3 03/31/20 24 Active apixaban (ELIQUIS) 2.5 mg tabIndications: Paroxysmal atrial fibrillation (CMS/HCC) Take 1 Tablet (2.5 mg) by mouth in the morning and 1 Tablet (2.5 mg) before bedtime. 60 Tablet 11/05/19 25 Active Eliquis 2.5 mg tab TAKE 1 TABLET BY MOUTH EVERY MORNING AND TAKE 1 TABLET EVERY NIGHT AT BEDTIME 60 Tablet 02/29/20 25 Active Eliquis 2.5 mg tab TAKE 1 TABLET BY MOUTH EVERY MORNING AND TAKE 1 TABLET EVERY NIGHT AT BEDTIME 60 Tablet 01/27/20 25 025 Discontinued Active Problems Problem Noted Date Diagnosed Date Paroxysmal atrial fibrillation 11/30/2019 Acute chest pain 11/20/2019 Bradycardia 02/19/2012 Personal history of tobacco use, presenting hazards to health 02/19/2012 Pure hypercholesterolemia 02/19/2012 PVC's (premature ventricular contractions) 02/18 Postsurgical percutaneous tr ansluminal coronary angioplasty status 02/19/2012 Syncope 02/19/2012 CAD (coronary artery disease) 02/19/2012 Old [place] (myocardial infarction) 02/19/2012 Paroxysmal ventricular tachycardia 02/19/2012 Encounters Date Type Department Care Team Description 02/26/2025 Refill [facility] Office [address] [place] [address] Russell Fontenot, KUSH Medications Refill 02/17/2025 Telephone [facility] & [address] Medical Office [address] [place] [phone] Bernardo Cota MD Scheduling 01/26/2025 Refill [facility] Office Building [address] [place] [phone] Russell Fontenot, KUSH Medications Refill 12/28/2024 Refill [facility] [address] Medical Office Building [address] [place] [phone] Russell Fontenot, KUSH Medications Refill from Last 3 Months Social History Tobacco Use Types Packs/Day Years Used Date Smoking Tobacco: Former Smokeless Tobacco: Never Tobacco Cessation:Counseling Given: No Alcohol Use Standard Drinks/Week Comments No 0 (1 standard drink = 0.6 oz pur e alcohol) Sex and Gender Information Value Date Recorded Sex Assigned at Not on file Legal Sex Male 5:19 PM EST Gender Identity Not on file Sexual Orientation Not on file Last Filed Vital Signs Vital Sign Reading Time Taken Comments Blood Pressure 141/71 03/31/2024 1:24 PM EST Pulse 62 03/31/2024 1:24 PM EST Temperature 36.4 C (97.5 F) 11/22/2019 7:54 AM EDT Respiratory Rate 16 11/22/2019 7:54 AM EDT Oxygen Saturation 98% 11/22/2019 7:54 AM EDT Inhaled Oxygen Concentration - - Weight 78 kg (172 lb) 03/31/2024 1:24 PM EST Height 175.3 cm (5' 9 ) 08/21/2023 9:40 AM EDT Body Mass Index 25.4 08/21/2023 9:40 AM EDT Plan of Treatment Upcoming Encounters Date Type Department Care Team (Late st Contact Info) Description 03/24/2025 1:00 PM EDT Appointment [facility] Physicians - Heart & Vascular, [place] [address] [place] [address] Medical Office Building [address] [place] [phone] Yojana Craig PA [address] [place] [address]. [address] [place], [place] [address] Health Maintenance Due Date Last Done Comments Pneumococcal Vaccine: 50+ Ye ars (1 of 1 - PCV) 01/13/1988 Zoster-RZV(Shingrix) (1 of 2) 01/13/1988 Fall Risk Assessment 2003 RSV Vaccines (1 - 1-dose 75+ series) 2013 Advance Care Planning 05/26/2024 Depression Screening 05/26/2024 Tetanus Vaccination (Every 1 0 Years) 06/25/2024 06/25/2014 COVID-19 Vaccine (6 - 2024-2 6 season) 2025 03/13/2022, 11/02/2021, 02/28/2021, Additional history exists Influenza Vaccination (#1) 01/24/202503/07, 03/25/2019, 06/22/2018, Additional history exists Lipid Monitoring 02/23/2025 02/24/2024, , 05/30/2017, Additional history exists Influenza Vaccination (Yearly) Discontinued 1 , 03/25/2019, 06/22/2018, Additional history exists Lipid Screening Discontinued 02/24/2024, 10/25, 05/30/2017, Additional history exists Procedures Procedure Name Priority Date/Time Associated Diagnosis Comments LIPID PROFILE Routine 11/21/2019 12:32 AM EDT from Last 3 Months or Most Recently Relevant to Health Maintenance Results * (ABNORMAL) LIPID PROFILE (11/21/2019 12:32 AM EDT) Chol/HDL Ratio 3.1 0 - 5 [facility] Cholesterol 109(L) 125 - 199 mg/dL [facility] Comment: TOTAL CHOLESTEROL INTERPRETATION: Less than 200 mg/dL Desireable 200-239 mg/dL Borderline Greater or Equal to 240 mg/dL High LDL Calculated 58 0 - 100 mg/dL [facility] Comment: LDL CHOLESTEROL INTERPRETATION: Less than 100 mg/dL Optimal 100-129 mg/dL Near optimal/above optimal 130-159 mg/dL Borderline High 160-189 mg/dL High Greater or Equal to 190 mg/dL Very High HDL 35(L) 40 - 180 mg/dL [facility] Comment: HDL CHOLESTEROL INTERPRETATION: Less than 40 mg/dL Low Greater than 60 mg/dL Desirable Triglycerides 81 0 - 150 mg/dL [facility] Comment: TOTAL TRIGLYCERIDE INTERPRETATION: Less than 150 mg/dL Normal 150-199 mg/dL Borderline HIgh 200-499 mg/dL High Greater or Equal to 500 mg/dL Very High Plasma 11/21/2019 12:3 2 AM EDT 11/21/2019 12:56 AM EDT us David Mckeon NP CHEMISTRY ORDERABLES Final R esult [facility] [address] [place] [address] from Last 3 Months or Most Recently Relevant to Health Maintenance Insurance [employer] Advance Directives For more information, please contact: [phone] * Full Code (Latest Code Status on File) Date Activated Date Inactivated Comments 11/20/2019 3:17 PM No automated c hest compression devices for VAD Patients * Full Code Date Activated Date Inactivated Comments 11/20/2019 11:57 AM 11/20/2019 3:17 PM No automate d chest compression devices for VAD Patients Care Teams Assistant Professor Of Psychology Relationship Specialty Start Date End Date Romaine Laird MD PCP - General Family Medicine 12/02/18 Yojana Craig PA [address] [place] [address] Cardiology 07/05/20 Bernardo Cota MD [address] [place] [address] [place] [address] Interventional Cardiology 07/06/20 Carlos Aguero MD Interventional Cardiology 06/02/22 Richard Connor PA [address] [place] [address] [address] [place] [address] Physician Electroformer Physician Electroformer 08/07/22
--- OUTSIDE RECORDS SUMMARY | 2025-03-10 17:24 | XMS_ITS | Data Portability ---
Author Organization [facility] - ARSENIO [facility] [place] [facility]OS[facility] Address [address] [facility] [address] [place] [address] Assessment No assessment recorded. Plan of Treatment Reminders Order Date Submit Date Provider Last Modified By Organization Details Last Modified Time Details Appointments None recorded. Lab None recorded. Referral None recorded. Procedures None recorded. Surgeries None recorded. Imaging None recorded. Medication Orders Flonase Sensimist 27.5 mcg/actuat ion nasal spray,susp ension 2018 019 INTERFACE [facility] [id number], [address] [place], [address], 14:53:27 Augmentin 875 mg-125 mg tablet [address] [facility] [id number], [address] [place], [address], 9 14:28:08 Medrol (Ihsan) 4 mg tablets in a dose pack [address] [facility] [id number], [address] [place], [address], 9 14:28:14 Patient TargetsNo targets recorded. Patient Instructions Encounter Date Encounter Id Patient Instructions Last Modified By Organization Details Last Modified Time 01/05/2019 [id number] 1. Audiogram performed today 2. Ordered MRI temporal bone scan 3. Consider left labyrinthotomy with infusion of steroid 4. Consider hearing aid amplification R>L (discrimination 84% R and 54% L) 5. F/u 3-4 weeks with MRI results [email or web address] Not available 01/05/2019 09:42:46 02/22/2019 [id number] 1. Advised to we ar ear protection when exposed to loud noises to preserve hearing. 2. Auto-inflate the ears using the modified valsalva maneuver 10 times daily 3. Rx - Flonase Sensimist 27.5mcg nasal spray, 1 spray each nostril BID (trial for ETD) 4. Reviewed recent brain MRI with patient 5. Rx - Augmentin 875mg PO BID for 10 days 6. Rx - Medrol dose pack, take as directed (trial for sinusitis) 7. F/U in 2-[address] Houston with repeat audio and further monitoring of asymmetrical hearing loss and left maxillary sinusitis/silent sinus syndrome [place] [facility] MD Bryan Houston [facility] Not available 02/22/2019 14:56:08 03/15/2019 [id number] hearing loss: ca re instructions [email or web address] Not available 03/16/2019 08:36:13 03/15/2019 [id number] eustachian tube problems: care instructions [email or web address] Not available 03/15/2019 16:30:34 hearing loss: ca re instructions [email or web address] Not available 03/15/2019 16:30:34 1. Audiogram obtained; reviewed- type A tymps bilaterally; 20 dbs right/ 35 dbs left 2. F/U PRN asalva Not available 03/15/2019 15:45:47 Reason for Referral None Reported. Results Created Date Observation Date Name Description Value Unit Range Abnormal Flag Note LastModifiedBy Organization Detail LastModifiedTime 01/06/2001/05/2019 creat inine , serum or plasm a creatinine 0.98 mg/dL 0.70-1 .25 normal Not Available [facility] [address] [place] [address], [place], [address], 01/05/2019 13:58:34 01/07/2001/05/2019 audio gram No observ ation record ed. BARCODE Not Available 2018 10:52:41 01/15/20 19 01/14/2019 MR brain and IAC w/wo contr ast [facility] [address] [place] [address] ay LUCIUS Bower [id number] Tenisha aquino Name: MELISSA aquino : [id number] Tenisha aquino 33 Orderi ng Provid er: ROSLYN HELLER ALLISON EXAM DATE: 2018 EXAM: MR BRAIN AND IAC W/WO CONTRA ST HISTOR Y: 79-yea r-old male with bilate ral hearin g loss. COMPAR NAZIA: None. FINDIN GS: The ventri cles are symmet amina, but modera tely enlarg ed. There is no mass, mass effect , or midlin e shift. There is no abnorm al extra- axial fluid, intrac ranial hemorr navya, or infarc tion. The diffus ion weight ed sequen lilly are normal . There are mild perive ntricu lar white matter change s. After intrav enous admini strati on of 7.5cc Gadavi st ([facility] [address]- [address]25-0 1), there is no abnorm al enhanc ement in the brain. There is no mass or abnorm al enhanc ement along the crania l nerves or in the regulatory intern al audito ry canals . The regulatory intern al caroti d and basila r flow-v oids are normal . There is diffus jose a increa sed T2 signal in the left maxill shade sinus. The medial wall and latera l of the left maxill shade sinus sinuse s, and the floor of the left orbit appear displa miracle toward s the center of the sinus. There is minima l mucosa l thicke brandin in the ethmoi d and right maxill shade sinuse s. The mastoi d air cells are clear. IMPRES MARCY: 1. There is mild to modera te diffus e cerebr al atroph y and mild white matter change s in the brain. There is no mass or abnorm al enhanc ement along the crania l nerves or in the regulatory intern al audito ry canals . 2. There are manife statio ns of left maxill shade silent sinus syndro me. Interp reted By: Belen cavanaugh MD Electr onical ly Signed By: Belen cavanaugh MD on 019 12:43 PM [facility] [address] [place], [address], 01/14/2019 14:41:44 03/16/20 19 03/15/2019 audio gram No observ ation record ed. BARCODE Not Available 2018 09:44:45 Result Notes None recorded. Problems No Known Problems Procedures Surgical History Date Name Laterality Status Provider Name and Address Organization Details Recorded Time [address], [facility] [address] [place], [address], [facility] 03/16/2019 08:35:[address], [facility] [address] [place], [address], [facility] 03/16/2019 08:35:30 9 Tympanogram completed ALAYNA MERCADO, AUD [address] [place], [address], [facility] 01/05/2019 10:33:09 9 Audiogram completed ALAYNA MERCADO, AUD [address] [place], [address], [facility] 01/05/2019 10:33:07 Imaging Results None recorded. Procedure Notes None recorded. Medical Equipment None Reported. Allergies No known drug allergies Medications Name Sig Start Date Stop Date Status Note LastModified by Organization Details LastModified Time atorvastati n 80 mg tablet active Not Available Not Available Not Available gemfibrozil 600 mg tablet active Not Available Not Available Not Available verapamil ER (SR) 240 mg tablet,exte nded release active Not Available Not Available Not Available methylpredn isolone 4 mg tablets in a dose pack Take as directed, tapering over 6 days 03/15 completed Not Available Not Available Not Available amoxicillin 875 mg-potassiu m clavulanate 125 mg tablet Take 1 tablet every 12 hours by oral route for 10 days. 03/15 completed Not Available Not Available Not Available Zetia 10 mg tablet Take 1 tablet every day by oral route. active Not Available Not Available No t Available aspirin active Not Available Not Avail able Not Available Flonase Sensimist 27.5 mcg/actuati on nasal spray,suspe nsion 1 spray in each nostril BID 2018 active Not Available Not Available Not Avai lable Vitals Date Recorded Body weight Body mass index (BMI) Body height Body temperature Heart rate Systolic And Diastolic Provider Name and Address Organization Details Last Updated DateTime 9 10105.5 g 26.3 kg/m2 177.8 cm 97.6 [degF] 54 /min 147/78 mm[Hg] Tahmina Holden [facility] 9 08:23:49 Date Recorded Body height Body mass index (BMI) Body weight Heart rate Oxygen saturation Oxygen saturation in Arterial blood by Pulse oximetry Body temperature Systolic And Diastolic Provider Name and Address Organization Details Last Updated DateTime 9 177.8 cm 26 kg/m2 44193.2 2 g 63 /min 97 % 97 % 98.2 [degF] 113/62 mm[Hg] Summer [facility] 9 14:24:13 Date Recorded Body height Body temperature Heart rate Body mass index (BMI) Body weight Systolic And Diastolic Provider Name and Address Organization Details Last Updated DateTime 9 177.8 cm 97.3 [degF] 58 /min 26.1 kg/m2 88334.0 9 g 94/68 mm[Hg] Pam Param [facility] 9 14:30:29 Social History Question Answer Notes LastModified by Organizat ion Details LastModified Time Tobacco Smoking Status Never Smoker Tahmina Hatch [facility] 01/05/2019 08:20:35 How Much Tobacco Do You Chew? None [email or web address] Information not available 01/05/2019 How Much Tobacco Do You Smoke? No [email or web address] Information not available 01/05/2019 Sex: Unknown Functional Status Question Answer Note LastModified by Organizat ion Details LastModified Time What is your level of alcohol consumption? None [email or web address] Information not available 01/05/2019 Do you or have you ever used smokeless tobacco? Never used smokeless tobacco [email or web address] Information not available 01/05/2019 Mental Status None recorded. Family History Relationship Description Onset Age of this Age Resolved Age Notes LastModified by Organization Details LastModified Time Mother Heart disease [email or web address] Not available 2018 08:20:29 Medical History Condition Response Diabetes N Bleeding Disorder N Anesthesia Complications N Heart Attack (OR) Y Heart Disease Y Cancer Y Hypertension N Past Encounters Encounter ID Performer Location Encounter Start Date Encounter Closed Date Diagnosis/Indication Diagnosis SNOMED-CT Code Diagnosis ICD10 Code Diagnosis IMO Codes Diagnosis Note [id number] TORI HOUSTON MD [place] [facility] [address] [place] [address] 01/05/2019 07:53:34 01/05/2019 10:08:48 Asymmetrical sensorineural hearing loss 545425456 H90.5 -onset 6 weeks ago L>R -discrimin ation 84% R and 54% L Dysfunctio n of eustachian tube 43474533 H69.92 Tinnitus of left ear 919 2771956 106 H93.12 Noise-samy miracle hearing loss 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 [id number] LUÍS CARDOZA [place] [facility] [address] [place] [address] 01/05/2019 08:32:51 01/05/2019 10:35:20 Sensorineural hearing loss of bilateral ears 344161365 H90.3 L>R Dysfunctio n of eustachian tube 84546904 H69.92 [id number] CARSON PORTILLO APRN [place] [facility] CL[facility] [address] [address] 02/22/2019 14:16:53 02/23/2019 16:30:12 Asymmetrical sensorineural hearing loss 196010052 H90.5 - onset early November 2018 - MRI was performed on 01/14/19 that clear of retrocochl ear pathology but did reveal manifesta tions of left maxillary silent sinus syndrome and complete opacificat ion of the left maxillary sinus cavity - 02/22/19: improved subjective ly and tinnitus resolved Dysfunctio n of eustachian tube 00599392 H69.92 - stable Tinnitus of left ear 200 7710625 106 H93.12 - resolved Noise-samy miracle hearing loss 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 Silent sinus syndrome 69 6590031 J34.89 - possible - MRI was performed on 01/14/19 that clear of retrocochl ear pathology but did reveal manifesta tions of left maxillary silent sinus syndrome and complete opacificat ion of the left maxillary sinus cavity Acute maxi llary sinusitis 30786077 J01.00 [id number] TORI HOUSTON MD [place] [facility] [address] [place] [address] 03/15/2019 14:20:12 03/18/2019 09:00:48 Asymmetrical sensorineural hearing loss 991901475 H90.5 -discrimin ation 80% R and 80% L; slight increase in right ear since 01/05/2019 Dysfunctio n of eustachian tube 87751589 H69.92 -improved [id number] LUÍS ROWE [place] [facility] [address] [place] [address] 03/16/2019 08:35:15 03/16/2019 08:37:16 Asymmetrical sensorineural hearing loss 785356155 H90.5 Bilateral tinnitus 75624 70592 102 H93.13 Health Concerns Section Related Observation LastModified by Organization Detai ls LastModified Time None Recorded Concern Status LastModified by Organization Details LastModified Time None Recorded Advance Directives Directive None Recorded Payers Insurance Date Sequence Insurance Name Policy Number Policy Gale Covered Member ID Gale Member ID Guarantor Name 03/18/2019 2 [employer] (MEDICARE SUPPLEMENT) Melissa Monroy [id number] Melissa Monroy 03/15/2019 1 [place] Melissa Monroy [id number] Melissa Monroy Notes Date Note Type Note Provider Name and Address Organization Details Recorded Time 01/05/2019 text/html Melissa is an 78 year old male being seen in the office in consultation for an evaluation of left-sided hearing loss that started 6 weeks ago. He complains the hearing feels muffled and it feels like there is bubbles in the ear. He has occasional noises throughout the day in the left ear. 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 He denies vertigo and dizziness. He has not had any recent imaging performed. TORI HOUSTON MD [address] [place], [address], [facility] 01/13/2019 12:37:38 02/22/2019 text/html Melissa Monroy returns today for follow up of asymmetrical hearing loss. He was evaluated by Dr. Houston on 01/05/19 and his audiogram revealed a slight asymmetrical loss, with the left being worse than right. He was having complaints at that time of noticeable decline in hearing of the left ear for about 6 weeks. The option of hearing aids was discussed. A head MRI was performed on 01/14/19 that clear of retrocochlear pathology but did reveal manifestations of left maxillary silent sinus syndrome and complete opacification of the left maxillary sinus cavity. He says his hearing in the left ear actually has slightly improved and the tinnitus resolved. He denies ear pain or discharge. Ms. Monroy also reports having 3 sinus infections in the last 2 weeks. He says he has been feverish feeling with chills 3 times during this period. He feels some sinus pressure. He denies congestion or drainage. He has not been on an antibiotic, decongestant, spray, or steroid this year. CARSON PORTILLO APRN [address] [place], [address], [facility] 02/22/2019 14:57:04 03/15/2019 text/html Melissa is an 79 year old male here for a follow up on asymmetrical hearing loss and acute maxillary sinusitis. He was evaluated by Mahamed in January of 2019 and was placed on Flonase for ETD and Augmentin/Medrol dose pack for acute maxillary sinusitis. Melissa states that he has notice improvement since his initial appointment and his sinus has cleared. Melissa states that he has had 3 separate sinus infections over the past year. Melissa does show concern with the cracking and popping he was experiencing in bilateral ears. TORI HOUSTON MD [address] [place], [address], [facility] 03/15/2019 16:30:37
--- OUTSIDE RECORDS SUMMARY | 2025-03-10 17:24 | XMS_ITS | Encounter Summary ---
Author Organization [place] [address] Care Team Providers Care Burglar Alarm Mechanic Name Role Phone Gloria Whitmore MD Primary Care Provider [phone] Hui Slater MD Unavailable [phone] Reason for Visit * Reason Onset Date Comments Care Transition 03/08/2025 CM- Telephonic Outreach 03/08/2025 Encounter Details Date Type Department Care Team (Late st Contact Info) Description 03/08/2025 Patient Outreach [facility] [address] [place] [address] Obdulia Vanessa RN Care Transition; CM- Telephonic Outreach Social History Tobacco Use Types Packs/Day Years Used Date Smoking Tobacco: Former Cigarettes Q uit: 06/22/1976 Passive Smoke Exposure: Past Smokeless Tobacco: Never Alcohol Use Standard Drinks/Week Comments No 0 (1 standard drink = 0.6 oz pur e alcohol) [facility] Utilities Answer Date Recorded In the [...] Date Recorded PHQ-2 Total Score 0 06/30/2024 [place] [facility] of Occupat ional Health - Occupational Stress [...] to get more. Never true 05/20/[address] [facility] IP Transportation Answer D ate Recorded In [...] No 06/30/2024 1:22 PM ROSETTA Ebony Mcallister RMA documented in this encounter Progress Notes * Obdulia Vanessa RN - 03/08/2025 12:03 PM EDT Senior Clerk contacted patients daughter Hina this morning to follow up and attempt to provide additional support. Daughter reports she was able to take care of things and expressed disappointment with that our organization did not help her with the process. Daughter further reports she was able to accomplish in a day what could not be done in a weeks time by . Daughter reports Hospice will be making a visit this week. blood coordinator inquired about which organization as this will be helpful in the future for patients that live in [facility]. Daughter reports Hospice [facility]. blood coordinator had previously understood that daughterwanted to try palliative care first and upon further discussion daughter advised she had to go and ended the call. blood coordinator updated the accounting practice manager Zunilda about the call with daughter and also reached out to [facility]. blood coordinator spoke with Jeovany at [facility] and explained the situation. Starlette was advised that no one had mentioned hospice care being an option in the area patient lives even though palliative care is not an option for patients area. blood coordinator is now aware that [facility] does serve all of [facility] however palliative care is limited to only certain areas within [facility]. documented in this encounter Plan of Treatment Upcoming Encounters Date Type Department Care Team (Late st Contact Info) Description 03/23/2025 1:00 PM EDT Appointment [facility] [address] [place] [address] 03/23/2025 1:30 PM EDT Appointment [address] [place] [address] Sherrill Stroud APRN [address] [facility] [address] documented as of this encounter Goals [...] documented as of this encounter Care Teams Burglar Alarm Mechanic Relationship Specialty Start Date End Date Gloria Whitmore MD [address] [place] [address] PCP - General Family Medicine 08/07/17 Hui Slater MD [address] [facility] [address] Medical Oncologist Internal Medicine-Hematology and Oncology 11/10/24 documented as of this encounter
--- OUTSIDE RECORDS SUMMARY | 2025-03-10 17:24 | XMS_ITS | Encounter Summary ---
Author Organization [place] [address] Care Team Providers Care Heavy Equipment Plumbing Supervisor Name Role Phone Gloria Whitmore MD Primary Care Provider [phone] Hui Slater MD Unavailable [phone] Reason for Visit * Reason Comments Financial Counseling Encounter Details Date Type Department Care Team (Late st Contact Info) Description 01/14/2025 Patient Outreach [facility] [address] [place] [address] Sondra Correia, Clerical Staff Financial Counseling Social History Tobacco Use Types Packs/Day Years Used Date Smoking Tobacco: Former Cigarettes Q uit: 06/22/1976 Passive Smoke Exposure: Past Smokeless Tobacco: Never Alcohol Use Standard Drinks/Week Comments No 0 (1 standard drink = 0.6 oz pur e alcohol) [facility] Utilities Answer Date Recorded In the [...] Date Recorded PHQ-2 Total Score 0 06/30/2024 [facility] [place] of Occupat ional Health - Occupational Stress [...] money to get more. Never true 05/20/2024 [facility] IP Transportation Answer D ate Recorded In [...] Entry Date Author No 06/30/2024 1:22 PM EST Ebony Mcallister RMA documented in this encounter Progress Notes * Sondra Correia, Clerical Staff - 01/14/2025 9:35 AM EDT Son called wanted to know if Venofer was approved for three additional injections. I checked, and yes, it is. I also checked if it was a large amount of OOP last time, which was about $70 each visit. documented in this encounter Plan of Treatment Upcoming Encounters Date Type Department Care Team (Late st Contact Info) Description 03/23/2025 1:00 PM EDT Appointment [address] [place] [address] 03/23/2025 1:30 PM EDT Appointment [address] [place] [address] Sherrill Stroud APRN [address] [place] [address] [place] [address] documented as of this encounter Goals Goal [...] documented as of this encounter Care Teams Heavy Equipment Plumbing Supervisor Relationship Specialty Start Date End Date Gloria Whitmore MD [address] [place] [address] PCP - General Family Medicine 08/07/17 Hui Slater MD [address] [place] [address] Medical Oncologist Internal Medicine-Hematology and Oncology 11/10/24 documented as of this encounter
--- OUTSIDE RECORDS SUMMARY | 2025-03-10 17:24 | XMS_ITS | Encounter Summary ---
Author Organization [place] [address] Care Team Providers Care Quality Control Expert Name Role Phone Gloria Whitmore MD Primary Care Provider Hui Slater MD Unavailable [phone] Mindy Maharaj MD Unavailable [phone] Reason for Referral * Hospice (Routine) - Pending Review Specialty Diagnoses / Procedures Referred By Contac t Referred To Contact Diagnoses Memory disturbance Paroxysmal atrial fibrillation (HCC) Paroxysmal ventricular tachycardia (HCC) S/P coronary artery stent placement Gloria Whitmore MD [address] [place] [address] Phone: tel: fax: Referral ID Status Reason Start Date Expiration Date Visits Requested Visits Authorized [id number] Pending Review Specialty Services Required 03/01/2025 03/01/2026 999 [id number] Question Answer Is the ordering provider going to follow patient in Hospice? No, defer to hospice physician Reason for Visit * Reason Onset Date Comments Relaying Information 03/01/2025 Encounter Details Date Type Department Care Team (Late st Contact Info) Description 03/01/2025 Telephone [facility] [address] [place] [address] Gloria Whitmore MD [address] [place] [address] Relaying Information (HH) Social History Tobacco Use Types Packs/Day Years Used Date Smoking Tobacco: Former Cigarettes Q uit: 06/22/1976 Passive Smoke Exposure: Past Smokeless Tobacco: Never Alcohol Use Standard Drinks/Week Comments No 0 (1 standard drink = 0.6 oz pur e alcohol) [facility] Utilities Answer Date Recorded In the [...] Date Recorded PHQ-2 Total Score 0 06/30/2024 [facility] - Occupational Stress Questionnaire Answer Date [...] money to get more. Never true 05/20/[address] [facility] IP Transportation Answer D ate Recorded In [...] Author No 06/30/2024 1:22 PM Ebony Holt Reema ALLI * Is the person blind or does he/she have serious difficulty seeing even when wearing glasses? Answer Date of Assessment Author No 06/30/2024 1:22 PM EST Ebony Mcallister Reema RMA * Does this person have serious difficulty walking or climbing stairs? Answer Date of Assessment Author No 06/30/2024 1:22 PM EST Ebony Mcallister Reema RMA * Does this person have difficulty dressing or bathing? Answer Date of Assessment Author No 06/30/2024 1:22 PM EST Ebony Mcallister Reema RMA * Because of a physical, mental or emotional condition, does this person have difficulty doing errands alone such as visiting a doctor's office or shopping? Answer Date of Assessment Author No 06/30/2024 1:22 PM Enedelia Holtjaclyn Benavidez ALLI documented as of this encounter Mental Status * Because of a physical, mental or emotional condition, does this person have serious difficulty concentrating, remembering or making decisions? Answer Entry Date Author No 06/30/2024 1:22 PM Ebony Holt Reema ALLI documented in this encounter Miscellaneous Notes * Telephone Encounter - Obdulia Vanessa RN - 03/04/2025 10:00 AM EDT See Patient Outreach from 03/04/25 for details. * Telephone Encounter - Daren Lee RMA - 03/01/2025 5:20 PM EDT Hina Pt's daughter notified. * Telephone Encounter - Gloria Whitmore MD - 03/01/2025 5:16 PM EDT Ok referral is placed * Telephone Encounter - Mayte Nash - 03/01/2025 11:06 AM EDT Select the most appropriate reason for this telephone message: Relaying Information Relaying Information Who is Calling: [facility] (include facility and caller's name) Return Method of Communication:Phone call What information is the caller relaying: pt family asking for a referral for [facility], Hina(daughter) would like her information on referral Further action needed: Yes call daughter(Hina) and [facility] when taken care of Additional Information:pt is a non admit for HH documented in this encounter Plan of Treatment Upcoming Encounters Date Type Department Care Team (Late st Contact Info) Description 03/23/2025 1:00 PM EDT Appointment [address] [place] [address] 03/23/2025 1:30 PM EDT Appointment [address] [place] [address] Sherrill Stroud, ELEVATOR ATTENDANT [address] [place] [address] Scheduled Referrals Name Type Priority Associated Diagnoses Orde r Schedule AMB REFERRAL TO HOSPICE Outpatient Referral Routine Memory disturbance Paroxysmal atrial fibrillation (HCC) Paroxysmal ventricular tachycardia (HCC) S/P coronary artery stent placement Ordered: 03/01/2025 documented as of this encounter Goals Goal [...] 130 Result Component 54(02/23/2025 3:19 PM EDT) Kashif Nava MD documented as of this encounter Visit Diagnoses Diagnosis Memory disturbance- Primary Memory loss Paroxysmal atrial fibrillation (HCC) Atrial fibrillation Paroxysmal ventricular tachycardia (HCC) Paroxysmal ventricular tachycardia S/P coronary artery stent placement Postsurgical percutaneous transluminal coronary angioplasty status documented in this encounter Additional Health Concerns Assessment Noted Time A fall risk assessment has been complete d for the patient 02/23/2025 1:49 PM EDT documented as of this encounter Care Teams Quality Control Expert Relationship Specialty Start Date End Date Gloria Whitmore MD [address] [place] [address] PCP - General Family Medicine 08/07/17 Mindy Maharaj MD [address] [place] [address] PCP - Hospice Attending 03/01/25 Hui Slater MD [address] [place] [address] Medical Oncologist Internal Medicine-Hematology and Oncology 11/10/24 documented as of this encounter
--- OUTSIDE RECORDS SUMMARY | 2025-03-10 17:24 | XMS_ITS | Encounter Summary ---
Author Organization [place] [address] Care Team Providers Care Photonics Technician Name Role Phone Gloria Whitmore MD Primary Care Provider [phone] Hui Slater MD Unavailable [phone] Reason for Visit * Reason Onset Date Comments Orders 02/25/2025 Verbal Orders Encounter Details Date Type Department Care Team (Late st Contact Info) Description 02/25/[address] [facility] [address] [place] [address] Gloria Whitmore MD [address] [place] [address] Orders ( Verbal Orders) Social History Tobacco Use Types Packs/Day Years Used Date Smoking Tobacco: Former Cigarettes Q uit: 06/22/1976 Passive Smoke Exposure: Past Smokeless Tobacco: Never Alcohol Use Standard Drinks/Week Comments No 0 (1 standard drink = 0.6 oz pur e alcohol) [facility] Utilities Answer Date Recorded In the past 12 months has [employer], gas, oil, or water company threatened to shut off services in your home? No 05/20/2024 Overall Financial Resource Strain (CARDIA) Answe r Date Recorded How hard is it for you to pa y for the very basics like food, housing, medical care, and heating? Not very hard 05/20/2024 PHQ-2 Answer Date Recorded PHQ-2 Total Score 0 06/30/[address] [facility] - Occupational Stress Questionnaire Answer Date [...] money to get more. Never true 05/20/20[facility] IP Transportation Answer D ate [...] encounter Miscellaneous Notes * Telephone Encounter - Delores Butts MA - 02/25/2025 11:31 AM EDT Left a VM giving verbal order. * Telephone Encounter - Mayte Joseph MA - 02/25/2025 11:08 AM EDT Select the most appropriate reason for this telephone message: Order Request Who is Calling: Home Health Facility: [facility] (Caller name: [facility]) Return Method of Communication: Phone Call What Orders are being requested: Delay Start of Care until 02/28/25 Reason: give time to reach pt Is a verbal order being requested: Yes If non-[facility], where should the order be faxed to (include fax number and facility name): n/a Who is the ordering Provider: PCP Additional Information: N/A documented in this encounter Plan of Treatment Upcoming Encounters Date Type Department Care Team (Late st Contact Info) Description 03/23/2025 1:00 PM EDT Appointment [facility] [address] [place] [address] 03/23/2025 1:30 PM EDT Appointment [address] [place] [address] Sherrill Stroud, MATTHEW [address] [facility] [place] [address] documented as of this encounter Goals Goal Patient Goal Type Associated Problems Recent Progress Patient-Stated? Author Blood Pressure < 140/90 Blood Pressure 124/82(2024 1:56 PM EDT) Kashif Nava MD Maintain a healthy diet, exercise regularly [...] documented as of this encounter Care Teams Photonics Technician Relationship Specialty Start Date End Date Gloria Whitmore MD [address] [place] [phone] PCP - General Family Medicine 08/07/17 Hui Slater MD [address] [place] [address] Medical Oncologist Internal Medicine-Hematology and Oncology 11/10/24 documented as of this encounter
--- OUTSIDE RECORDS SUMMARY | 2025-03-10 17:24 | XMS_ITS | Encounter Summary ---
Author Organization [facility] Address [address] [place] [address] Care Team Providers Care [employer] Repairer Name Role Phone Romaine Laird MD Primary Care Provider Unavail able Yojana Craig Unavailable [phone] Bernardo Cota MD Unavailable [phone] Carlos Aguero MD Unavailable Unavailable Richard Connor Unavailable Reason for Visit * Reason Comments Medications Refill Encounter Details Date Type Department Care Team (Late st Contact Info) Description 01/26/2025 Refill [facility] Physicians - Heart & Vascular, [address] Medical Office Building [address] [place] [phone] Russell Fontenot NP [address] [place] [address] [place] [address] [phone] Medications Refill Social History Tobacco Use Types Packs/Day Years [...] on file documented as of this encounter Plan of Treatment Upcoming Encounters Date Type Department Care Team (Late st Contact Info) Description 03/24/2025 1:00 PM EDT Appointment [facility] Physicians - Heart & Vascular, [place] Medical Office Building [address] [place] [phone] Yojana Craig PA [address] [place] [address] [address] [place] [phone] documented as of this encounter Visit Diagnoses Not on filedocumented in this encounter Care Teams [employer] Repairer Relationship Specialty Start Date End Date Romaine Laird MD PCP - General Family Medicine 12/02/18 Yojana Craig PA [address] [place] [address] [place] [phone] Cardiology 07/05/20 Bernardo Cota MD [address] [place] [id number] Interventional Cardiology 07/06/20 Carlos Aguero MD Interventional Cardiology 06/02/22 Richard Connor PA [address] [place] [address] Physician Offset Machine Operator Physician Offset Machine Operator 08/07/22 documented as of this encounter
--- OUTSIDE RECORDS SUMMARY | 2025-03-10 17:24 | XMS_ITS | Clinical Summary ---
Author Organization [facility] Address [address] [place] [address] Phone Care Team Providers Care Transitions Manager Name Role Phone Gloria Whitmore MD Primary Care Provider [phone] Hui Slater MD Unavailable Allergies Active Allergy Reactions Criticality Noted Date Comments No Known Allergies 08/22/2010 Medications Cholecalciferol , Vitamin D3, 25 mcg (1,000 unit) Oral Capsule Take by mouth daily. Active multivitamin capsule Take 1 Cap by mouth daily. Active ezetimibe (ZETIA) 10 mg Oral Tablet Take 1 Tablet by mouth daily. 90 Tablet 1 2 Active verapamiL (CALAN-SR) 120 mg Oral Tablet Sustained ReleaseIndicati ons:Tachycardia Take 1 Tablet by mouth 2 times daily. 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 90 Tablet 3 5 Active apixaban (ELIQUIS) 5 mg Oral TabletIndicatio ns:Old myocardial infarction Take 1 Tablet by mouth 2 times daily. 28 Tablet 5 Active Additional Information Patient not taking.Reason: Therapy Completed, Reported on 02/23/2025 ELIQUIS 2.5 mg Oral Tablet 5 Active cyanocobalamin 1,000 mcg Oral TabletIndicatio ns:B12 deficiency Take 1 Tablet by mouth three times a week. 36 Tablet 1 5 Active ciclopirox (LOPROX) 0.77 % Top CreamIndication s:Psoriasis Apply topically 2 times daily. 60 g 3 5 Active fluconazole (DIFLUCAN) 100 mg Oral TabletIndicatio ns:Psoriasis Take 1 Tablet by mouth daily for 14 days. 14 Tablet 5 03/09/20 25 Active Problems Patient Care Coordination No te Formatting of this note migh t be different from the original. HCC audit completed by Maggie Merino RN on 04/30/2022. Please fax lab results to Dr. Cota [phone] Problem Noted Date Diagnosed Date Impaired mobility [...] 1:04 PM EST): -BP 131/72 -- Verapamil FUR DRY CLEANER Assessment & Plan (05/23/2024 2:21 PM EST): -BP 131/72 -- Verapamil FUR DRY CLEANER Assessment & Plan (05/22/2024 1:43 PM EST): -BP 109/55 -- Verapamil FUR DRY CLEANER Assessment & Plan (05/21/2024 10:06 AM EST): -BP 109/60 -- Verapamil FUR DRY CLEANER Assessment & Plan (05/20/2024 9:44 AM EST): -BP 145/68 -- Verapamil FUR DRY CLEANER Assessment & Plan (05/20/2024 3:03 AM EST): -- Verapamil FUR DRY CLEANER S/P coronary artery stent placement 02/20/2024 Assessment [...] PT order in Dispo:TBD; likely to [place] ABLA (acute blood loss anemia) 01/24/2024 Closed fracture of left hip, initial encounter 0 01/22/2024 Closed left hip fracture, initial encounter 12/25 Paroxysmal atrial fibrillation 11/30/2019 Assessment & Plan (05/24/2024 12:49 PM EST): -rate controlled HR in 60s this am 05/24 -- Verapamil, Eliquis FUR DRY CLEANER Assessment & Plan (05/23/2024 2:21 PM EST): -rate controlled HR in 70s this am 05/23 -- Verapamil, Eliquis FUR DRY CLEANER Assessment & Plan (05/22/2024 1:43 PM EST): -rate controlled HR in 60s this am 05/22 -- Verapamil, Eliquis FUR DRY CLEANER Assessment & Plan (05/21/2024 10:06 AM EST): -rate controlled HR in 60s this am 05/21 -- Verapamil, Eliquis FUR DRY CLEANER Assessment & Plan (05/20/2024 9:44 AM EST): -rate controlled HR in 60s this am -- Verapamil, Eliquis FUR DRY CLEANER Assessment & Plan (05/20/2024 3:03 AM EST): -- Verapamil, Eliquis FUR DRY CLEANER Old myocardial infarction 06/22/2018 Overview (06/22/2018): AR from - History of prostate cancer 06/22/2018 Syncope 02/19/2012 [...] EST): -lipid profile reviewed -- Lipitor, Zetia FUR DRY CLEANER Assessment & Plan (05/23/2024 9:00 AM EST): -lipid profile reviewed -- Lipitor, Zetia FUR DRY CLEANER Assessment & Plan (05/22/2024 9:11 AM EST): -lipid profile reviewed -- Lipitor, Zetia FUR DRY CLEANER Assessment & Plan (05/21/2024 10:06 AM EST): -lipid profile reviewed -- Lipitor, Zetia FUR DRY CLEANER Assessment & Plan (05/20/2024 9:44 AM EST): -lipid profile reviewed -- Lipitor, Zetia FUR DRY CLEANER Assessment & Plan (05/20/2024 3:03 AM EST): -- Lipitor, Zetia FUR DRY CLEANER CAD (coronary artery disease ) / History of AR 2010 / S/P coronary artery stent placement [...] and 2nd diagonal branch. -- ASA, Lipitor FUR DRY CLEANER -- Chest x-ray:No acute findings -- no CP today 05/24 Assessment & Plan (05/23/2024 2:21 PM EST): -- cardiac cath 10/2019: Coronary angiography today showed mild disease in the dominant RCA and left circumflex system with intermediate, FFR negative disease in the mid LAD and 2nd diagonal branch. -- ASA, Lipitor FUR DRY CLEANER -- Chest x-ray:No acute findings -- no CP today 05/23 Assessment & Plan (05/22/2024 1:43 PM EST): -- cardiac cath 10/2019: Coronary angiography today showed mild disease in the dominant RCA and left circumflex system with intermediate, FFR negative disease in the mid LAD and 2nd diagonal branch. -- ASA, Lipitor FUR DRY CLEANER -- Chest x-ray:No acute findings -- no CP today 05/22 Assessment & Plan (05/21/2024 10:06 AM EST): -- cardiac cath 10/2019: Coronary angiography today showed mild disease in the dominant RCA and left circumflex system with intermediate, FFR negative disease in the mid LAD and 2nd diagonal branch. -- ASA, Lipitor FUR DRY CLEANER -- Chest x-ray:No acute findings -- no CP today 05/21 Assessment & Plan (05/20/2024 9:44 AM EST): -- cardiac cath 10/2019: Coronary angiography today showed mild disease in the dominant RCA and left circumflex system with intermediate, FFR negative disease in the mid LAD and 2nd diagonal branch. -- ASA, Lipitor FUR DRY CLEANER -- Chest x-ray:No acute findings -- no CP today Assessment & Plan (05/20/2024 3:03 AM EST): -- cardiac cath 10/2019: Coronary angiography today showed mild disease in the dominant RCA and left circumflex system with intermediate, FFR negative disease in the mid LAD and 2nd diagonal branch. -- ASA, Lipitor FUR DRY CLEANER -- Chest x-ray, personally reviewed: No acute findings -- no CP Assessment & Plan (02/26/2024 1:18 PM EDT): History of AR, tolerating statins and aspirin well, discussed the importance of continuing this medication. GERD (gastroesophageal reflux disease) 0 Resolved Problems Problem Noted Date Diagnosed Date Resolved Date Fracture 01/22/2024 05/20/2024 Prostate CA 07/04/2010 06/22/2018 AR (myocardial infarction) 07/04/2010 0 06/22/2018 Overview (06/22/2018): Greater than 4 weeks 07-04-2010. Added Old AR Encounters Date Type Department Care Team Description 03/08/2025 Patient Outreach [address] [phone] Obdulia Vanessa, turret punch operator; CM- Telephonic Outreach 03/07/[address] [phone] Gloria Whitmore MD Relaying Information (Hospice care ) 03/07/2025 Patient Outreach [address] [phone] Obdulia Vanessa RN Care Transition; CM- Telephonic Outreach; CM-Resource Coordination (Contacted [facility]ators for palliative care ) 03/04/2025 Patient Outreach [address] [phone] Obdulia Vanessa, SHAYLA CM- Telephonic Outreach; Care Transition; CM-Resource Coordination 03/02/2025 Results Follow-Up [address] [phone] Gloria Whitmore MD CBC WITH DIFF, COMPREHENSIVE METABOLIC PANEL, HEMOGLOBIN A1C, Additional followed-up results: 6 03/02/2025 Telephone [facility] [address] [place] [id number] Sheila Lyons, tile picker (Hospice intake) 03/01/[address] [phone] Gloria Whitmore MD Relaying Information () 02/25/[address] [phone] Gloria Whitmore MD Orders ( Verbal Orders) 02/23/2025 1:45 PM EDT Office Visit [facility] [address] [place] [address] Gloria Whitmore MD Annual physical exam (Primary Dx); Flu vaccine need; Psoriasis; Skin lesion; 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; Memory disturbance; Impaired mobility and ADLs; Debility; Iron deficiency anemia, unspecified iron deficiency anemia type; Vitamin D deficiency 02/02/2025 1:24 PM EDT - 02/02/2025 11:59 PM EDT Hospital Encounter [address] [place] [address] Iron deficiency anemia due to chronic blood loss (Primary Dx); Iron malabsorption Discharge Disposition: Home or Self Care 01/26/2025 12:54 PM EDT - 01/26/2025 11:59 PM EDT Hospital Encounter [address] [place] [address] Iron deficiency anemia due to chronic blood loss (Primary Dx); Iron malabsorption Discharge Disposition: Home or Self Care 01/19/2025 2:49 PM EDT - 01/19/2025 11:59 PM EDT Hospital Encounter [address] [place] [address] Iron deficiency anemia due to chronic blood loss (Primary Dx); Iron malabsorption Discharge Disposition: Home or Self Care 01/14/2025 Patient Outreach [facility] [address] [place] [address] Sondra Correia, Clerical Staff Financial Counseling 01/13/2025 Results Follow-Up [facility] [place] [address] Sherrill Stroud APRN CBC WITH DIFF, COMPREHENSIVE METABOLIC PANEL, FERRITIN, Additional followed-up results: 3 01/11/2025 2:03 PM EDT - 01/11/2025 11:59 PM EDT Hospital Encounter [address] [place] [address] Sherrill Stroud APRN Iron deficiency anemia due to chronic blood loss (Primary Dx); Iron malabsorption; Anticoagulated; History of ischemic colitis; Anemia, chronic disease; Paroxysmal atrial fibrillation (HCC); History of prostate cancer Discharge Disposition: Home or Self Care 01/11/2025 2:02 PM EDT Hospital Encounter [facility] [address] [place], [place] [id number] Iron deficiency anemia due to chronic blood loss; Iron malabsorption; Anticoagulated Discharge Disposition: Home or Self Care from Last 3 Months Immunizations Immunization Administration Dates Next Due Influenza High Dose 02/23/2025,,03/06/2022,03/06,04/26/2020,06/22/2018,04/05/2015 Influenza Vaccine, Unspecifi ed Formulation 03/25/2019 Pneumococcal Conjugate Vacci ne 13 Valent 06/22/2018 Pneumococcal Polysaccharide 23 Valent 08/11/2019 Quadrivalent Influenza High Dose 03/07/2023 RSV Recombinant PF (Arexvy) 03/07/2023 TST,Unspecified Formulation 05/31/2024,1 ,02/10/2024,02/02 Tdap 06/25/2014 Surgical History Surgery Date Site/Laterality Comments NASAL SINUS SURGERY PROSTATE SURGERY 2008 PARTIAL HIP ARTHROPLASTY 01/23/2024 Hip/Left LEFT HIP ANNA ARTHROPLASTY; Surgeon: Ovi Higuera MD; Location: [facility] MAIN OR; Service: Orthopedics Medical devices from this surgery are in the Medical Devices section. PARTIAL HIP ARTHROPLASTY 05/20/2024 Hip/Right RIGHT HIP ANNA ARTHROPLASTY-ANTERIOR - (USMAN/JAKUB); Surgeon: Rosalino Patel MD; Location: [facility] OR; Service: Orthopedics Medical devices from this surgery are in the Medical Devices section. Medical History Medical History Date Comments GERD (gastroesophageal reflux disease) AR (myocardial infarction) ([facility]) 07/04/20101992 Hyperlipidemia Cardiac dysrhythmia, unspecified on med for PVC Prostate CA (HCC) 07/04/201012/2008 S/P angioplasty 1993 x2 no stent s Metabolic syndrome 02/06/2011 Age-related osteoporosis wit h current pathological fracture 05/20/2024 Anemia 05/20/2024 Family History Medical History Relation Name Comments Cancer Brother lung Heart Disease Mother Relation Name Status Comments Brother Mother Social History Tobacco Use Types Packs/Day Years Used Date Smoking Tobacco: Former Cigarettes Q uit: 06/22/1976 Passive Smoke Exposure: Past Smokeless Tobacco: Never Tobacco Cessation:Counseling Given: Not Answered Alcohol Use Standard Drinks/Week Comments No 0 (1 standard drink = 0.6 oz pur e alcohol) [facility] Utilities Answer Date Recorded In the past [...] Date Recorded PHQ-2 Total Score 0 06/30/2024 [facility] - Occupational Stress [...] money to get more. Never true 05/20/2024 [facility] IP Transportation Answer D ate Recorded In [...] Pressure 124/82 02/23/2025 1:56 PM EDT Pulse 54 02/02/2025 3:03 PM EDT Temperature 36.6 C (97.9 F) 02/23/2025 1:56 PM EDT Respiratory Rate 18 02/02/2025 3:03 PM EDT Oxygen Saturation 100% 02/02/2025 3:03 PM EDT Inhaled Oxygen Concentration - - Weight 81.2 kg (179 lb) 02/23/2025 1:56 PM EDT Height 175.3 cm (5' 9 ) 02/23/2025 1:56 PM EDT Body Mass Index 26.43 02/23/2025 1:56 PM EDT Plan of Treatment Upcoming Encounters Date Type Department Care Team (Late st Contact Info) Description 03/23/2025 1:00 PM EDT Appointment [address] [place] [address] 03/23/2025 1:30 PM EDT Appointment [address] [place] [address] Sherrill Stroud, RADIATION SAFETY OFFICER [address] [place] [address] Health Maintenance Due Date Last Done Comments Zoster (1 of 2) 01/13/1988 DTaP/TDaP/Td (2 - Td or Tdap) 06/25/2024 06/25/2014 COVID-19 Vaccine ( season) 2025 03/13/2022, 11/02/2021, 02/28/2021, Additional history exists Wellness Exam Medicare 02/24/2026 02/23/2025 Pneumococcal Vaccine 50+ Completed 08/11/2019, 05/27 RSV or 60+ Completed 03/07/2023 Influenza Vaccine Completed 02/23/2025, , 03/07/2023, Additional history exists Hepatitis B Vaccine Aged Out No longe r eligible based on patient's age to complete this topic Meningococcal B Vaccine Aged Out No l onger eligible based on patient's age to complete this topic Goals Goal Patient Goal Type Associated Problems [...] 3:19 PM EDT) No Kashif Askew MD Medical Devices Implanted Type Area Track Repair Laborer Device Identifier Shelf Expiration Date Model / Serial / Lot Bioprep Bone Preparation Kit - [id number] Implanted:Qty: 1 on 01/23/2024 by Ovi Higuera MD at [facility] Left: Hip JAKUB:INSTRUME NTS [id number] / / [id number] Stem Sz5 48mm Accolade C Extend Off Rdc Nk Cocr Salo 127d Hip - [id number] Implanted:Qty: 1 on 01/23/2024 by Ovi Higuera MD at [facility] Left: Hip JAKUB:ORTHOPED ICS [id number] 12/23/2028 4897-2525 D / / [id number] [facility] Distal Spacer - [id number] Implanted:Qty: 1 on 01/23/2024 by Ovi Higuera MD at [facility] Left: Hip JAKUB:ORTHOPED ICS [id number] 11/10/2028 6319-5419 / / [id number] Head Fem Unitrax 52mm Unipl Cocr Tapr Prim Mod Enpros Strl - [id number] Implanted:Qty: 1 on 01/23/2024 by Ovi Higuera MD at [facility] Left: Hip JAKUB:ORTHOPED ICS [id number] 11/12/2028 6942-5-05 2 / / [id number] Sleeve Hip Unitrax V40 Prim Mod Unipl +0mm Nk Ti Tapr - [id number] Implanted:Qty: 1 on 01/23/2024 by Ovi Higuera MD at [facility] Left: Hip JAKUB:ORTHOPED ICS [id number] 10/01/2028 6942-6-06 [id number] Cement Simplx Hv 20ml 40gm Gent Antbtc Bn Pwdr - [id number] Implanted:Qty: 1 on 01/23/2024 by Ovi Higuera MD at [facility] Left: Hip JAKUB [id number] 05/25/2025 6195-1-01 0 / / [id number] Cement Simplx Hv 20ml 40gm Gent Antbtc Bn Pwdr - [id number] Implanted:Qty: 1 on 01/23/2024 by Ovi Higuera MD at [facility] Left: Hip JAKUB [id number] 05/25/2025 6195-- 0 / / [id number] E Stem Hip Insignia High Offset 38.5mm X 107mm Size 6 - [id number] Implanted:Qty: 1 on 05/20/2024 by Rosalino Patel MD at [facility] Right: Hip JAKUB:ORTHOPED ICS [id number] 02/04/2029 4027-3955 / / [id number] Comp Biplr [id number] Univ Uhr Prim Cocr Bvl Tip 1pc Lck Hip - [id number] Implanted:Qty: 1 on 05/20/2024 by Rosalino Patel MD at [facility] Right: Hip JAKUB:ORTHOPED ICS [id number] 10/09/2027 UH1-51-26 / / [id number] Cocr Lfit Head 26mm/-3 - [id number] Implanted:Qty: 1 on 05/20/2024 by Rosalino Patel MD at [facility] Right: Hip JAKUB:ORTHOPED ICS [id number] 09/28/2028 6260-9-02 Procedures Procedure Name Priority Date/Time Associated Diagnosis Comments VITAMIN D 25 HYDROXY Routine 02/23/2025 3:19 PM EDT Vitamin D deficiency IRON+TIBC Routine 02/23/2025 3:19 PM EDT Flu vaccine need Psoriasis Skin lesion Annual physical exam 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 Memory disturbance Impaired mobility and ADLs Debility Iron deficiency anemia, unspecified iron deficiency anemia type FERRITIN Routine 02/23/2025 3:19 PM EDT Flu vaccine need Psoriasis Skin lesion Annual physical exam 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 Memory disturbance Impaired mobility and ADLs Debility Iron deficiency anemia, unspecified iron deficiency anemia type VITAMIN B12/ FOLIC ACID Routine 02/23/2025 3:19 PM EDT Flu vaccine need Psoriasis Skin lesion Annual physical exam 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 Memory disturbance Impaired mobility and ADLs Debility Iron deficiency anemia, unspecified iron deficiency anemia type TSH REFLEX TO FT4 Routine 02/23/2025 3:1 9 PM EDT Flu vaccine need Psoriasis Skin lesion Annual physical exam 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 Memory disturbance Impaired mobility and ADLs Debility Iron deficiency anemia, unspecified iron deficiency anemia type LIPID SCREEN Routine 02/23/2025 3:19 PM EDT Flu vaccine need Psoriasis Skin lesion Annual physical exam 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 Memory disturbance Impaired mobility and ADLs Debility Iron deficiency anemia, unspecified iron deficiency anemia type HEMOGLOBIN A1C Routine 02/23/2025 3:19 PM EDT Flu vaccine need Psoriasis Skin lesion Annual physical exam 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 Memory disturbance Impaired mobility and ADLs Debility Iron deficiency anemia, unspecified iron deficiency anemia type COMPREHENSIVE METABOLIC PANEL Routine 02/23/2025 3:19 PM EDT Flu vaccine need Psoriasis Skin lesion Annual physical exam 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 Memory disturbance Impaired mobility and ADLs Debility Iron deficiency anemia, unspecified iron deficiency anemia type CBC WITH DIFF Routine 02/23/2025 3:19 PM EDT Flu vaccine need Psoriasis Skin lesion Annual physical exam 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 Memory disturbance Impaired mobility and ADLs Debility Iron deficiency anemia, unspecified iron deficiency anemia type VITAMIN B12/ FOLIC ACID [place] 01/11/2025 2:12 PM EDT 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 Anticoagulated RETICULOCYTE PANEL DIAGNOSTIC [place] 01/11/2025 2:12 PM [...] to chronic blood loss Iron malabsorption Anticoagulated from Last 3 Months Results * IRON+TIBC (02/23/2025 3:19 PM EDT) Only the most recent of2 resultswithin the time period is included. Iron 88 50 - 170 mcg/dL 02/23/2025 8:36 PM EDT [facility] Transferrin 221 200 - 360 mg/dL 02/23/2025 8:36 PM EDT [facility] Transferrin Saturation 28 20 - 50 % 02/23/2025 8:36 PM EDT [facility] TIBC 309 250 - 400 mcg/dL 02/23/2025 8:36 PM EDT [facility] Blood VENOUS BLOOD / Unknown Venipuncture / Unknown 02/23/2025 3:19 PM EDT 02/23/2025 3:19 PM EDT us Gloria Whitmore MD CHEMISTRY ORDERABLES Final Res ult Performing Organization Address [facility] de Phone Number [facility] [address] , [place] [phone] * VITAMIN B12/ FOLIC ACID (02/23/2025 3:19 PM EDT) Only the most recent of2 resultswithin the time period is included. Vitamin B12 728 232 - 1,245 pg/mL 02/23/2025 9:16 PM EDT [facility] Folate >16.00 >=4.50 ng/mL 02/23/2025 9:16 PM EDT [facility] Blood VENOUS BLOOD / Unknown Venipuncture / Unknown 02/23/2025 3:19 PM EDT 02/23/2025 3:19 PM EDT Narrative [facility] - 02/23/2025 9:16 PM EDT Ingestion of mien doses of biotin (>5 mg/day) taken within 8 hours of drawing blood sample can interfere with this immunoassay test. us Gloria Whitmore MD CHEMISTRY ORDERABLES Final Res ult Performing Organization Address [facility] de Phone Number [facility] [address] , [place] [phone] * TSH REFLEX TO FT4 (02/23/2025 3:19 PM EDT) TSH Reflex 2.300 0.270 - 4.200 mcIU/mL 02/23/2025 8:36 PM EDT [facility] Blood VENOUS BLOOD / Unknown Venipuncture / Unknown 02/23/2025 3:19 PM EDT 02/23/2025 3:19 PM EDT Narrative [facility] - 02/23/2025 8:36 PM EDT Ingestion of mine doses of biotin (>5 mg/day) taken within 8 hours of drawing blood sample can interfere with this immunoassay test. Gloria Whitmore MD CHEMISTRY ORDERABLES Final Res ult Performing Organization Address [facility] de Phone Number [facility] [place] [address] * VITAMIN D 25 HYDROXY (02/23/2025 3:19 PM EDT) Pathologist [facility] Vit D 25 OH 38.2 30.0 - 150.0 ng/mL 02/23/2025 9:16 PM EDT [facility] Comment: Preferred: >= 30 ng/mL Insufficient: 21-29 ng/mL Deficient <= 20 ng/mL Possible Toxicity: >150 ng/mL Samples should not be taken from patients receiving therapy with high biotin doses (i.e. > 5 mg/day) until at least 8 hours following the last biotin administration. Blood VENOUS BLOOD / Unknown Venipuncture / Unknown 02/23/2025 3:19 PM EDT 02/23/2025 3:19 PM EDT Gloria Whitmore MD CHEMISTRY ORDERABLES Final Res ult Performing Organization Address [facility] Phone Number [facility] [address], [place] [address] * (ABNORMAL) CBC WITH DIFF (02/23/2025 3:19 PM EDT) Only the most recent of2 resultswithin the time period is included. Pathologist [facility] WBC 6.7 3.7 - 10.3 x10(3)/mcL 02/23/2025 7:43 PM EDT [facility], [facility] RBC 4.55(L) 4.60 - 6.10 x10(6)/mcL 02/23/2025 7:43 PM EDT [facility], [facility] Hgb 13.8 13.7 - 17.5 g/dL 02/23/2025 7:43 PM EDT [facility] Hct 43.3 40.0 - 51.0 % 02/23/2025 7:43 PM EDT [facility] MCV 95.2 80.0 - 100.0 fL 02/23/2025 7:43 PM EDT [facility] MCH 30.3 26.0 - 34.0 pg 02/23/2025 7:43 PM EDT [facility] MCHC 31.9 30.7 - 35.5 g/dL 02/23/2025 7:43 PM EDT [facility] RDW 13.6 <=14.9 % 02/23/2025 7:43 PM EDT [facility] Platelet 169 155 - 369 x10(3)/mcL 02/23/2025 7:43 PM EDT [facility] MPV 11.0 8.8 - 12.5 fL 02/23/2025 7:43 PM EDT [facility] Neut Percent 54.8 % 02/23/2025 7:43 PM EDT [facility] Comment:Neutrophils equals s egs plus bands Imm Gran% 0.1 % 02/23/2025 7:43 PM EDT [facility] Comment:Automated count of m etamyelocytes, myelocytes and promyelocytes. Lymph Percent 28.1 % 02/23/2025 7:43 PM EDT [facility] [place] Percent 11.8 % 02/23/2025 7:43 PM EDT [facility] Eos Percent 4.5 % 02/23/2025 7:43 PM EDT [facility] Baso Percent 0.7 % 02/23/2025 7:43 PM EDT [facility] Neut # 3.7 1.6 - 6.1 x10(3)/mcL 02/23/2025 7:43 PM EDT [facility] Comment:Neutrophils equals s egs plus bands IMMGRAN# 0.0 0.0 - 0.1 x10(3)/mcL 02/23/2025 7:43 PM EDT [facility] Comment:Automated count of m etamyelocytes, myelocytes and promyelocytes. An absolute IG <0.1 is reported as 0.0. Lymph # 1.9 1.2 - 3.9 x10(3)/mcL 02/23/2025 7:43 PM EDT [facility] [place] # 0.8 0.3 - 0.9 x10(3)/mcL 02/23/2025 7:43 PM EDT [facility] Eos# 0.3 0.0 - 0.5 x10(3)/mcL 02/23/2025 7:43 PM EDT PREFERRED [facility], [facility] Baso # 0.1 0.0 - 0.1 x10(3)/mcL 02/23/2025 7:43 PM EDT [facility] LAB [facility], [facility] Blood VENOUS BLOOD / Unknown Venipuncture / Unknown 02/23/2025 3:19 PM EDT 02/23/2025 3:19 PM EDT Gloria Whitmore MD HEMATOLOGY ORDERABLES Final Re sult Performing Organization Address [facility] Co de Phone Number [facility] [address] , [place] [address] * (ABNORMAL) HEMOGLOBIN A1C (02/23/2025 3:19 PM EDT) [facility] Hgb A1C 5.9(H) 4.2 - 5.6 % 02/23/2025 8:09 PM EDT [facility]ED [facility], [facility] Est. Avg Glucose 123 mg/dL 02/23/2025 8:09 PM EDT [facility], [facility] Blood VENOUS BLOOD / Unknown Venipuncture / Unknown 02/23/2025 3:19 PM EDT 02/23/2025 3:19 PM EDT Narrative [facility] 02/23/2025 8:09 PM EDT REFERENCE RANGE: [...] ORDERABLES Final Res ult Performing Organization Address [facility]/ZIP Co de Phone Number [facility] [address] , [place] [address] * FERRITIN (02/23/2025 3:19 PM EDT) Only the most recent of2 resultswithin the time period is included. Pathologist [facility] Ferritin 358 30 - 400 ng/mL 02/23/2025 8:36 PM EDT [facility] [employer] [facility] Blood VENOUS BLOOD / Unknown Venipuncture / Unknown 02/23/2025 3:19 PM EDT 02/23/2025 3:19 PM EDT Narrative PREFERRED [employer] [facility] - 02/23/2025 8:36 PM EDT Ingestion of mine doses of biotin (>5 mg/day) taken within 8 hours of drawing blood sample can interfere with this immunoassay test. us Gloria Whitmore MD CHEMISTRY ORDERABLES Final Res ult [facility] [address] [facility] , [place] [address] * (ABNORMAL) LIPID SCREEN (02/23/2025 3:19 PM EDT) [facility] Cholesterol 104 <200 mg/dL 02/23/2025 8:36 PM EDT [facility] [employer] Comment: < 200 Desirable 200 - 239 Borderline High >= 240 High Triglyceride 88 <150 mg/dL 02/23/2025 8:36 PM EDT [facility] [employer] Comment: < 150 Normal 150 - 199 Borderline High 200 - 499 High >= 500 Very High HDL 33(L) >=40 mg/dL 02/23/2025 8:36 PM EDT [facility] [employer] Comment: > 60 Optimal 40 - 60 Acceptable < 40 Low LDL Calculated 54 <100 mg/dL 02/23/2025 8:36 PM EDT [facility] Comment: < 100 Optimal 100 - 129 Near or above optimal 130 - 159 Borderline High 160 - 189 High >= 190 Very High The National Institutes of Health (NIH) equation is used for all lipid panels that report calculated LDL (LDL-C). Non-HDL-C Calculated 71 <=129 mg/dL 02/23/2025 8:36 PM EDT [facility] Comment: <130 Desirable 130-159 Above Desirable 160-189 Borderline High 190-219 High >= 220 Very High Fasting Specimen? Yes None 025 8:36 PM EDT [facility] Blood VENOUS BLOOD / Unknown Venipuncture / Unknown 02/23/2025 3:19 PM EDT 02/23/2025 3:19 PM EDT us Gloria Whitmore MD CHEMISTRY ORDERABLES Final Res ult [facility] [address] [facility] , [place] [address] * COMPREHENSIVE METABOLIC PANEL (02/23/2025 3:19 PM EDT) Only the most recent of2 resultswithin the time period is included. Sodium 138 136 - 145 mmol/L 02/23/2025 8:36 PM EDT [facility] Potassium 4.5 3.5 - 5.0 mmol/L 02/23/2025 8:36 PM EDT [facility] Chloride 102 98 - 107 mmol/L 02/23/2025 8:36 PM EDT [facility] Total CO2 24 22 - 29 mmol/L 02/23/2025 8:36 PM EDT [facility] Anion Gap 12 7 - 16 mmol/L 02/23/2025 8:36 PM EDT [facility] Calcium 10.1 8.8 - 10.4 mg/dL 02/23/2025 8:36 PM EDT [facility] Glucose Lvl 86 70 - 99 mg/dL 02/23/2025 8:36 PM EDT [facility] BUN 17 8 - 23 mg/dL 02/23/2025 8:36 PM EDT [facility] Creatinine 0.87 0.67 - 1.30 mg/dL 02/23/2025 8:36 PM EDT [facility] Albumin 4.3 3.2 - 4.6 gm/dL 02/23/2025 8:36 PM EDT [facility] Total Protein 7.7 6.4 - 8.3 gm/dL 02/23/2025 8:36 PM EDT [facility], [facility] Bili Total 0.7 0.2 - 1.4 mg/dL 02/23/2025 8:36 PM EDT [facility], [facility] ALT 24 <=41 U/L 02/23/2025 8:36 PM EDT [facility] AST 27 <=40 U/L 02/23/2025 8:36 PM EDT [facility] Alk Phos 79 40 - 129 U/L 02/23/2025 8:36 PM EDT [facility] eGFR (CKD-EPIcr 2020) 84 >=60 mL/min/1.7 3 m2 02/23/2025 8:36 PM EDT [facility] LAB [facility], [facility] Comment:Estimated GFR was ca lculated using the CKD-EPIcr (2020) equation refit without race. The equation is recommended by the National Kidney Foundation - [place] Society of Nephrology Task Force. Blood VENOUS BLOOD / Unknown Venipuncture / Unknown 02/23/2025 3:19 PM EDT 02/23/2025 3:19 PM EDT us Gloria Whitmore MD CHEMISTRY ORDERABLES Final Res ult [facility] LAB [facility] [address] [facility] , [address] [place] [id number] * RETICULOCYTE PANEL DIAGNOSTIC (01/11/2025 2:12 PM EDT) Retic Cnt Auto 1.6 0.9 - 2.5 % 01/11/2025 6:55 PM EDT [facility], [facility] Retic # 70.9 40.0 - 110.0 x10(3)/mcL 01/11/2025 6:55 PM EDT [facility], [facility] Imm. Retic Fraction % 9.0 3.1 - 17.6 % 01/11/2025 6:55 PM EDT [facility], [facility] Retic Hgb 33.5 28.0 - 38.0 pg 01/11/2025 6:55 PM EDT [facility], [facility] Blood VENOUS BLOOD / Unknown Venipuncture / Unknown 01/11/2025 2:12 PM EDT 01/11/2025 2:14 PM EDT Narrative [facility], [facility] - 01/11/2025 6:55 PM EDT Reticulocyte hemoglobin [...] the youngest reticulocytes having the highest content. (1)Jose Angel Robbins., et al. 2017. Int J Hematol 106:116-125. (2)Rayna Sultana., et al. 2017. Nutrients 9:450. (3)Adrainna Schwab, et al. 2014. Am J Clin Pathol 142:506-512. (4)Yann, L., et al. 2010. Blood 116:9198-0849. Sherrill Stroud RADIATION SAFETY OFFICER HEMATOLOGY ORDERABLES Fi nal Result [facility] [address] [facility] , [place] [address] from Last 3 Months Insurance [employer] MEDICARE HMO MR MEDICARE [place] PART A AND B [employer] MEDICARE HMO MR [employer] MEDICARE HMO MR Advance Directives For more information, please contact: [phone] * Full Code (Latest Code Status on File) Date Activated Date Inactivated Comments 05/19/2024 6:35 AM 05/24/2024 5:08 PM * Full Code Date Activated Date Inactivated Comments 01/22/2024 11:38 PM 01/29/2024 8:16 PM Care Teams Transitions Manager Relationship Specialty Start Date End Date Gloria Whitmore MD [address] [place] [address] PCP - General Family Medicine 08/07/17 Hui Slater MD [address] [facility] [place] [address] Medical Oncologist Internal Medicine-Hematology and Oncology 11/10/24
--- OUTSIDE RECORDS SUMMARY | 2025-03-10 17:24 | XMS_ITS | Encounter Summary ---
Author Organization [facility] [place] [address] [place] [address] Care Team Providers Care Certified Home Health Aide Name Role Phone Gloria Whitmore MD Primary Care Provider [phone] Hui Slater MD Unavailable [phone] Mindy Maharaj MD Unavailable [phone] Reason for Visit * Reason Onset Date Comments Hospice 03/02/2025 Hospice intake Encounter Details Date Type Department Care Team (Late st Contact Info) Description 03/02/2025 Telephone [facility] [address] [place] [address] Sheila Lyons, dwarf tree grower (Hospice intake) Social History Tobacco Use Types Packs/Day Years Used Date Smoking Tobacco: Former Cigarettes Q uit: 06/22/1976 Passive Smoke Exposure: Past Smokeless Tobacco: Never Alcohol Use Standard Drinks/Week Comments No 0 (1 standard drink = 0.6 oz pur e alcohol) [facility] Utilities Answer Date Recorded In the past 12 months has [employer] electric, gas, oil, or water company threatened to shut off services in your home? No 05/20/2024 Overall Financial Resource Strain (CARDIA) Answe r Date Recorded How hard is it for you to pa y for the very basics like food, housing, medical care, and heating? Not very hard 05/20/2024 PHQ-2 Answer Date Recorded PHQ-2 Total Score 0 06/30/2024 [facility] [place] of Occupat ional Health - Occupational Stress [...] money to get more. Never true 05/20/2024 [facility] Transportation Answer D ate Recorded [...] of Assessment Author No 06/30/2024 1:22 PM ROSETTA Ebony Mcallister RMA documented as of this encounter Mental Status * Because of a physical, mental or emotional condition, does this person have serious difficulty concentrating, remembering or making decisions? Answer Entry Date Author No 06/30/2024 1:22 PM ROSETTA Ebony Mcallister RMA documented in this encounter Miscellaneous Notes * Telephone Encounter - Sheila Lyons RN - 03/02/2025 9:25 AM EDT Call placed to Dr. Mann, spoke with Sujata. Informed that referral received via [email or web address], but pt livesout of our service area. Per note in chart, referral meant for [facility]. Informed [facility] will close out the referral. documented in this encounter Plan of Treatment Upcoming Encounters Date Type Department Care Team (Late st Contact Info) Description 03/23/2025 1:[address] [facility] Cancer [address] [address] 03/23/2025 1:30 PM EDT Appointment [address] [place] [address] Sherrill Stroud APRN [address] [place] [address] [place] [address] documented as of this encounter Goals Goal [...] documented as of this encounter Care Teams Certified Home Health Aide Relationship Specialty Start Date End Date Gloria Whitmore MD [address] [place] [address] PCP - General Family Medicine 08/07/17 Mindy Maharaj MD [address] [place] [address] PCP - Hospice Attending 03/01/25 Hui Slater MD [address] [place] [address] Medical Oncologist Internal Medicine-Hematology and Oncology 11/10/24 documented as of this encounter
--- OUTSIDE RECORDS SUMMARY | 2025-03-10 17:24 | XMS_ITS | Encounter Summary ---
Author Organization [facility] Address [address] [place] [address] Care Team Providers Care Microstrategy Reports Developer Name Role Phone Romaine Laird MD Primary Care Provider Unavail able Yojnaa Craig Unavailable [phone] Bernardo Cota MD Unavailable [phone] Carlos Aguero MD Unavailable Unavailable Richard Connor Unavailable Reason for Visit * Reason Comments Medications Refill Encounter Details Date Type Department Care Team (Late st Contact Info) Description 02/26/[address] [facility] Physicians - Heart & Vascular, [address] Medical Office Building [address] [place] [phone] Russell Fontenot NP [address] [place] [address] [place] [phone] Medications Refill Social History Tobacco Use Types [...] 03/24/2025 1:00 PM EDT Appointment [facility] Physicians - Heart & Vascular, [place] Medical Office Building [address] [place] [phone] Yojana Craig PA [address] [place] [address] [place] [phone] documented as of this encounter Visit Diagnoses Not on filedocumented in this encounter Care Teams Microstrategy Reports Developer Relationship Specialty Start Date End Date Romaine Laird MD PCP - General Family Medicine 12/02/18 Yojana Craig PA [address] [place] [address] [place] [address] Cardiology 07/05/20 Bernardo Cota MD [address] [place] [address] Interventional Cardiology 07/06/20 Carlos Aguero MD Interventional Cardiology 06/02/22 Richard Connor PA [address] [place] [address] Physician Chief Environmental Commitment Officer Physician Chief Environmental Commitment Officer 08/07/22 documented as of this encounter
--- OUTSIDE RECORDS SUMMARY | 2025-03-10 17:24 | XMS_ITS | Encounter Summary ---
Author Organization [place] [address] Care Team Providers Care Carpenter General Name Role Phone Gloria Whitmore MD Primary Care Provider [phone] Hui Slater MD Unavailable [phone] Reason for Visit * Reason Onset Date Comments CM- Telephonic Outreach 03/04/2025 Care Transition 03/04/2025 CM-Resource Coordination 03/04/2025 Encounter Details Date Type Department Care Team (Late st Contact Info) Description 03/04/2025 Patient Outreach [facility] [address] [place] [address] Obdulia Vanessa RN CM- Telephonic Outreach; Care Transition; CM-Resource Coordination Social History Tobacco Use Types Packs/Day Years Used Date Smoking Tobacco: Former Cigarettes Q uit: 06/22/1976 Passive Smoke Exposure: Past Smokeless Tobacco: Never Alcohol Use Standard Drinks/Week Comments No 0 (1 standard drink = 0.6 oz pur e alcohol) [facility] Utilities Answer Date Recorded In the [...] Date Recorded PHQ-2 Total Score 0 06/30/2024 [facility] [place] - Occupational Stress Questionnaire Answer Date Recorded [...] money to get more. Never true 05/20/2024 [facility] IP Transportation Answer D ate Recorded [...] Date Author No 06/30/2024 1:22 PM ROSETTA Mcallister, ALLI Davidson documented in this encounter Progress Notes * Obdulia Vanessa RN - 03/06/2025 10:19 AM EDT Spoke with [facility] main office and uniforms sales representative advised that they did not have a referral for patient. Called patients farheen Santamaria to advised of this information and again discussed palliative care. Daughter has expressed interest in pursuing and childcare director has advised that this would be through [facility] as [facility] is not currently offering in home palliative care. script coordinator called [facility] back to determine what is needed for referral. Hina had provided verbal permission to send patients records. Will send/fax records requested by [facility] and referral. Contacted patients farheen Santamaria and advised of this information and that referral has been faxed. Solar Designer/Installer to follow up on status of referral on Friday03/07/25. * Obdulia Vanessa RN - 03/04/2025 10:00 AM EDT Images from the original note were not included. Contacted patients farheen Santamaria to provide resources for in home care such as [facility]. Hina has been advised that agencies such as this are private pay and childcare director is unsure which ones specifically serve the [facility]. Hina has advised she has the contact information for [facility]. script coordinator offered to send the senior resource guide which contains a variety of resources. Daughter has advised they are waiting to hear from [facility] about a referral. script coordinator unsure of the status of this referral and will reach out to Alden Giles to follow up on status. Daughter Hina had inquired about palliative care and what this service is compared to hospice. Carecoordinator reviewed palliative care information from resource in [facility]: Hina had additional questions childcare director unable to answer as these would need to be discussedwith the palliative care team. script coordinator attempted to reach Maggie Giles post initial conversation with daughter and got Niki's voicemail. Message left with request for a call back. Further chart review reveals a referral was sent to [facility] via [facility] and the followingwas noted: documented in this encounter Plan of Treatment Upcoming Encounters Date Type Department Care Team (Late st Contact Info) Description 03/23/2025 1:00 PM EDT Appointment [facility] Cancer [address] [place] [address] 03/23/2025 1:30 PM EDT Appointment [address] [place] [address] Sherrill Stroud APRN [address] [place] [phone] documented as of this encounter Goals Goal [...] documented as of this encounter Care Teams Carpenter General Relationship Specialty Start Date End Date Gloria Whitmore MD [address] [place] [address] PCP - General Family Medicine 08/07/17 Hui Slater MD [address] [place], [place] [phone] Medical Oncologist Internal Medicine-Hematology and Oncology 11/10/24 documented as of this encounter
--- OUTSIDE RECORDS SUMMARY | 2025-03-10 17:24 | XMS_ITS | Encounter Summary ---
Author Organization [facility] Address [address] [place] [address] Care Team Providers Care Forest Science Professor Name Role Phone Romaine Laird MD Primary Care Provider Unavail able Yojana Craig Unavailable [phone] Bernardo Cota MD Unavailable [phone] Carlos Aguero MD Unavailable Unavailable Richard Connor Unavailable Reason for Visit * Reason Onset Date Comments Medication Management 08/04/2024 Encounter Details Date Type Department Care Team (Late st Contact Info) Description 08/04/2024 Telephone [facility] Physicians - Heart & Vascular, [address] Medical Office [address] [place] [phone] Bernardo Cota MD [address] [place] [phone] Medication Management Social History Tobacco Use Types Packs/Day Years [...] encounter Miscellaneous Notes * Telephone Encounter - Yanelis Johnston - 08/04/2024 10:12 AM EDT [facility] is calling stating they have been giving him iron infusions and they stated sine his afib is controlled they are seeing if they can decrease his elquis to 2.5 Mg twice a day instead of 5mg. Sherrill - [phone] documented in this encounter Plan of Treatment Upcoming Encounters Date Type Department Care Team (Late st Contact Info) Description 03/24/2025 1:00 PM EDT Appointment [facility] Physicians - Heart & Vascular, [facility] [address] Medical Office Building [address] [place] [phone] Yojana Craig PA [address] [place] [phone] documented as of this encounter Visit Diagnoses Not on filedocumented in this encounter Care Teams Forest Science Professor Relationship Specialty Start Date End Date Romaine Laird MD PCP - General Family Medicine 12/02/18 Yojana Craig PA [address] [place] [address] [place] [address] Cardiology 07/05/20 Bernardo Cota MD [address] [place] [address] Interventional Cardiology 07/06/20 Carlos Aguero MD Interventional Cardiology 06/02/22 Richard Connor PA [address] [place] [address] Physician Amphibious Operations Officer Physician Amphibious Operations Officer 08/07/22 documented as of this encounter
[2025-03-11 00:25] LABS: C. difficile PCR (HMH) Negative (Neagtive)
== END 2025-03-10 23:59 | disposition home or self-care (01) ==
LOC: LAB.DROPOF 17:21
PROVIDERS: PCP Family Medicine Hospice and Palliative Medicine; Visit Provider Family Medicine Hospice and Palliative Medicine
DX: R19.7 Diarrhea, unspecified (principal)
CPT/HCPCS: 87493

== ENCOUNTER 2025-05-05 17:20 | Outpatient (CLI) | payer MEDICARE, SELFPAY ==
[2025-05-06 01:38] LABS: C. difficile PCR (HMH) Negative (Neagtive)
[2025-05-10 14:36] LABS: Giardia lamblia Ag, EIA Negative (Negative)
== END 2025-05-05 23:59 | disposition home or self-care (01) ==
LOC: LAB.DROPOF 17:22
PROVIDERS: PCP Family Medicine Hospice and Palliative Medicine; Visit Provider Family Medicine Hospice and Palliative Medicine
DX: R19.7 Diarrhea, unspecified (principal)
CPT/HCPCS: 87177; 87324; 87493